=== PATIENT | female | born 1975 | race Caucasian/White ===

== ENCOUNTER 2019-12-18 16:40 | Outpatient (CLI) | payer OTHER, SELFPAY ==
--- NOTE | ~2019-12-18 | MM_ITS ---
EXAMINATION: MM screening ilya BI w misti HISTORY: Screening mammogram TECHNIQUE: Craniocaudal and mediolateral oblique 3-D tomosynthesis images were obtained and synthetic 2-D images were generated. CAD analysis was submitted and interpreted. COMPARISON: No prior mammogram is available for comparison at this institution. BREAST PARENCHYMAL COMPOSITION: The breasts are almost entirely fatty. FINDINGS: There is no evidence of suspicious mass, calcification, or architectural distortion to sugg est malignancy in either breast.. IMPRESSION: 1. No mammographic evidence of malignancy. 2. Recommend routine screening mammography in one year. BI-RADS Category 1: Negative Reviewed, dictated and finalized at location A.
== END 2019-12-18 16:41 | disposition home or self-care (01) ==
PROVIDERS: PCP Family Medicine; Visit Provider Obstetrics & Gynecology
DX: Z12.31 Encounter for screening mammogram for malignant neoplasm of breast (principal)
CPT/HCPCS: 77063; 77067

== ENCOUNTER 2020-02-06 11:47 | Outpatient (CLI) | payer OTHER, SELFPAY ==
[2020-02-06 12:16] LABS: Cholesterol 186 mg/dL (0-200); HDL Direct 36 mg/dL; Triglycerides 206 mg/dL (<150)
[2020-02-06 12:26] LABS: Hemoglobin A1C 5.6 % (<5.7)
[2020-02-06 12:27] LABS: LDL Cholesterol Direct 105 mg/dL
[2020-02-06 13:05] LABS: Vitamin D 25 Hydroxy 33.1 ng/mL
== END 2020-02-06 11:48 | disposition home or self-care (01) ==
LOC: ANHLAB 11:50
PROVIDERS: PCP Family Medicine; Visit Provider Obstetrics & Gynecology
DX: E78.9 Disorder of lipoprotein metabolism, unspecified (principal); E55.9 Vitamin D deficiency, unspecified; R73.09 Other abnormal glucose
CPT/HCPCS: 36415; 80061; 82306; 83036

== ENCOUNTER 2020-04-02 14:17 | Outpatient (CLI) | payer OTHER, SELFPAY ==
--- NOTE | ~2020-04-02 | XR_ITS ---
EXAMINATION: XR chest 2V EXAM DATE: 04/02/2020 15:55 INDICATION: Obesity. Preoperative. TECHNIQUE: Frontal and lateral projections of the chest obtained and reviewed. There is no prior wes dy for comparison. FINDINGS: The lungs are clear. There are no pleural effusions. The cardiomediastinal silhouette is within normal limits. There is no pneumothorax suspected. The bones and soft tissues are unremarkab le. IMPRESSION: Normal chest x-ray exam. Reviewed, dictated and finalized at location A. IMPRESSION: Normal chest x-ray exam.
[2020-04-02 15:15] LABS: Basophils Absolute Auto 0.1 K/mm3 (0.0-0.1); Basophils Percent Auto 0.5 % (0.2-1.2); Eosinophils Absolute Auto 0.4 K/mm3 (0-0.3); Eosinophils Percent Auto 4.2 % (0-4.4); Hematocrit 43.3 % (37.0-47.0); Hemoglobin 13.7 g/dL (12.0-15.0); Immature Granulocyte Absolute 0.02 K/mm3 (0.00-0.031); Immature Granulocyte Percent A 0.2 % (0-0.5); Lymphocytes Absolute Auto 2.64 K/mm3 (0.9-3.2); Lymphocytes Percent Auto 28.2 % (18.3-44.2); Mean Corpuscular HGB Conc 31.6 g/dl (32-36); Mean Corpuscular Hemoglobin 26.1 pg (26-34); Mean Corpuscular Volume 82.5 fl (80-100); Mean Platelet Volume 10.2 fl (7.4-10.4); Monocytes Percent Auto 10.1 % (2.6-8.5); Neutrophils Absolute Auto 5.3 K/mm3 (1.3-6.7); Neutrophils Percent Auto 56.8 % (45.5-73.1); Platelet Count Result 225 k/mm3 (150-375); Red Blood Count 5.25 M/mm3 (4.2-5.4); Red Cell Distribution Width 14.5 % (11.5-14.5); White Blood Count 9.4 K/mm3 (4.5-10.0)
[2020-04-02 15:23] LABS: Prothrombin Time 12.5 Seconds (11.1-14.7)
[2020-04-02 15:24] LABS: Partial Thromboplastin Time 23.4 SECONDS (22.3-36.8)
--- NOTE | 2020-04-02 15:24 | ECG_ITS ---
Measurements Intervals [place] Rate: 75 P: 49 HI: 293 QRS: -48 QRSD: 97 T: 58 QT: 397 QTc: 446 Interpretive Statements SINUS RHYTHM WITH FIRST DEGREE AV BLOCK LEFT ANTERIOR FASCICULAR BLOCK ABNORMAL ECG Electronically Signed On 04-02-2020 17:24:59 CDT by Endy Bustos D.O.
[2020-04-02 15:25] LABS: Hemoglobin A1C 5.8 % (<5.7)
[2020-04-02 15:27] LABS: Alanine Aminotransferase 15 U/L (4-35); Albumin Level 3.8 g/dL (3.5-5.1); Alkaline Phosphatase 62 U/L (38-126); Anion Gap 5 mmol/L (8-16); Aspartate Amino Transferase 18 U/L (14-36); Bilirubin,Total 0.5 mg/dL (0.2-1.3); Blood Urea Nitrogen 21 mg/dL (7-17); Calcium 8.6 mg/dL (8.4-10.2); Carbon Dioxide 33 mmol/L (22-30); Chloride 103 mmol/L (98-107); Estimated Glomerular Filt Rate > 60; Glucose 108 mg/dL (65-105); Magnesium 2.3 mg/dL (1.6-2.3); Potassium 4.5 mmol/L (3.4-5.0); Sodium 141 mmol/L (137-145)
[2020-04-02 16:05] LABS: Parathyroid Intact 78.5 pg/mL (7.5-53.5)
[2020-04-02 16:34] LABS: Folic Acid > 20.0 ng/mL (2.76->20)
[2020-04-02 17:01] LABS: Iron 50 ug/dL (37-170)
[2020-04-02 17:12] LABS: Percent Iron Saturation 14 % (20-50)
[2020-04-02 17:24] LABS: Vitamin D 25 Hydroxy 31.6 ng/mL
[2020-04-07 11:07] LABS: Vitamin B1 7 nmol/L (8-30)
== END 2020-04-02 14:18 | disposition home or self-care (01) ==
PROVIDERS: PCP Family Medicine
DX: Z01.818 Encounter for other preprocedural examination (principal); E66.01 Morbid (severe) obesity due to excess calories; R94.31 Abnormal electrocardiogram [ECG] [EKG]
CPT/HCPCS: 36415; 71046; 80053; 82306; 82607; 82728; 82746; 83036; 83540; 83550; 83735; 83970; 84425; 84443; 85025; 85610; 85730; 93005

== ENCOUNTER 2020-05-06 12:32 | Outpatient (CLI) | payer OTHER, SELFPAY ==
[2020-05-06 13:38] LABS: LDL Cholesterol Direct 73 mg/dL
[2020-05-06 13:39] LABS: Calcium 8.6 mg/dL (8.4-10.2); Cholesterol 136 mg/dL (0-200); Parathyroid Intact 88.1 pg/mL (7.5-53.5); Triglycerides 183 mg/dL (<150)
[2020-05-06 13:59] LABS: HDL Direct 27 mg/dL
== END 2020-05-06 12:33 | disposition home or self-care (01) ==
PROVIDERS: PCP Family Medicine
DX: E66.01 Morbid (severe) obesity due to excess calories (principal); Z68.43 Body mass index [BMI] 50.0-59.9, adult; E21.3 Hyperparathyroidism, unspecified
CPT/HCPCS: 36415; 80061; 82310; 83970

== ENCOUNTER 2020-05-31 11:20 | Outpatient (CLI) | payer OTHER, SELFPAY ==
[2020-05-31 12:59] LABS: Calcium 8.9 mg/dL (8.4-10.2)
[2020-05-31 13:14] LABS: Parathyroid Intact 58.5 pg/mL (7.5-53.5)
[2020-05-31 13:36] LABS: Vitamin D 25 Hydroxy 52.9 ng/mL
== END 2020-05-31 11:21 | disposition home or self-care (01) ==
LOC: ANHLAB 11:27
PROVIDERS: PCP Family Medicine
DX: E55.9 Vitamin D deficiency, unspecified (principal); R79.89 Other specified abnormal findings of blood chemistry
CPT/HCPCS: 36415; 82306; 82310; 83970

== ENCOUNTER 2020-07-17 10:10 | Emergency (ER) | payer OTHER, SELFPAY ==
--- NOTE | 2020-07-17 10:14 | ED.GENADULT ---
HPI - General Adult General Chief complaint: Upper Respiratory Infection Stated complaint: upper respiratory infection Time Seen by Provider: 07/17/20 10:12 Source: patient Mode of arrival: ambulatory Limitations: no limitations History of Present Illness HPI narrative: 45 y/o female. PMH includes: GERD, Hypothyroid, HLD, Elevated BMI. Presents to [facility] clinic today with acute complaints of upper respiratory manifestations. Client reports nasal congestion, semi productive cough, and sore throat, worsening > past 48 hours. No fever, chills. No MURILLO, otalgia. No chest pain, dyspnea, wheezing, edema. She is a non-smoker. She reports no known ill contacts. Home remedies have been of subtherapeutic relief per patient report. She is without additional acute complaints of illness upon PE. Related Data Home Medications Medication Instructions Recorded Confirmed levothyroxine 75 mcg DAILY 07/17/20 07/17/20 pantoprazole 40 mg PO DAILY 07/17/20 07/17/20 sucralfate 1 g TID 07/17/20 07/17/20 Allergies Allergy/AdvReac Type Severity Reaction Status Date / Time amoxicillin [From Augmentin] Allergy Hives Verified 07/17/20 10:59 clavulanic acid Allergy Hives Verified 07/17/20 10:59 [From Augmentin] Review of Systems Review of Systems: Narrative: CONSTITUTIONAL: Denies fever, chills, sweats. EYES: Denies visual changes, redness, discharge. ENT: Positive congestion, sore throat. Denies otalgia. CARDIOVASCULAR: Denies chest pain, palpitations, edema. RESPIRATORY: Positive cough. Denies dyspnea, wheezing. GASTROINTESTINAL: Denies abdominal pain, nausea, vomiting, diarrhea. GENITOURINARY: Denies dysuria, hematuria, abnormal discharge SKIN: Denies rash or itching. MUSCULOSKELETAL: Denies acute back pain, joint pain, or myalgia. NEUROLOGIC: Denies numbness, or focal weakness. PSYCHIATRIC: Denies anxiety or depression. All systems reviewed & are unremarkable except as noted in HPI and below (HPI ) PMFSH Social History Social History Gender identity (if verbalized by the patient): Female Exam Narrative: Exam Narrative: GENERAL: This is a well-nourished, well-developed patient, in no apparent distress. HEAD: normocephalic, atraumatic. EYES: PERRL. Sclera clear/white. Vision is grossly intact. EARS: External ears normal, auditory canals clear and without drainage, TMs normal without perforation. Hearing grossly intact. NOSE: External nose normal. Positive PND & rhinorrhea. Bilateral nares with erythema. No obstruction. THROAT: Mucous membranes moist. Posterior pharynx is erythematous and without noted exudate. NECK: Neck supple, non-tender without lymphadenopathy, masses or thyromegaly. CARDIOVASCULAR: Regular rate and rhythm without murmurs, gallops, or rubs. RESPIRATORY: Breath sounds equal bilaterally. There is a mild degree of upper airway rhonchi, cleared with cough. No wheezes or rales. No stridor. GASTROINTESTINAL: Abdomen soft, non-tender, nondistended. Bowel sounds are active. No hepato-splenomegaly, or palpable masses. No guarding. SKIN: warm, intact with no suspicious lesions or rash, good texture and turgor. NEURO: awake, alert, and oriented to person, place and time. There were no obvious focal neurologic abnormalities. Steady gait EXTREMITIES: Normal range of motion. No edema. No calf tenderness. Negative Homans sign bilaterally. BACK: Nontender without deformity or crepitance. No flank tenderness. Course Course Emergency Course: 45 y/o female. PMH includes: GERD, Hypothyroid, HLD, Elevated BMI. Presents to [facility] care clinic today with acute complaints of upper respiratory manifestations. Client reports nasal congestion, semi productive cough, and sore throat, worsening > past 48 hours. No fever, chills. No MURILLO, otalgia. No chest pain, dyspnea, wheezing, edema. She is a non-smoker. She reports no known ill contacts. Home remedies have been of sub
[2020-07-17 10:30] VITALS: BP 104/42; PULSE 67; RESP 20; TEMP 37.3; O2SAT 97
== END 2020-07-17 11:05 | disposition home or self-care (01) ==
PROVIDERS: Emergency Provider Nurse Practitioner Adult Health; PCP Family Medicine
DX: J02.0 Streptococcal pharyngitis (principal); Z20.822 Contact with and (suspected) exposure to COVID-19; K21.9 Gastro-esophageal reflux disease without esophagitis; E03.9 Hypothyroidism, unspecified; E78.5 Hyperlipidemia, unspecified
CPT/HCPCS: 87426; 87804; 87880; 99213; C9803; G0463

== ENCOUNTER 2020-07-24 12:15 | Emergency (ER) | payer OTHER, SELFPAY ==
--- NOTE | 2020-07-24 12:21 | ED.GENADULT ---
HPI - General Adult General Chief complaint: Upper Respiratory Infection Stated complaint: sore throat Time Seen by Provider: 07/24/20 12:21 Source: patient Mode of arrival: ambulatory Limitations: no limitations History of Present Illness HPI narrative: 45-year-old female patient presents to the [facility] with complaints of a sore throat. Patient states that she was seen here last week and on Sunday and states that she was tested for strep, flu and Covid. Patient states that she came up positive for strep but negative for Covid and flu. Patient states that she was given some antibiotics and sent home. Patient states that she finished antibiotics but continued to have a sore throat and which she saw her doctor this past Sunday was put on clindamycin. Patient states her symptoms are starting to get a little bit better but continues to have the sore throat and states that she is wanting to get tested for Covid again. Patient denies any fevers, body aches or chills. Denies any runny nose, stuffy nose, ear pain. Related Data Home Medications Medication Instructions Recorded Confirmed levothyroxine 75 mcg DAILY 07/17/20 07/17/20 Vitamin D3 07/24/20 clindamycin HCl 07/24/20 anicocsshehb-lzz-eccx-FA-vit K tablet PO 07/24/20 [Adults Multivitamin] thiamine HCl (vitamin B1) 07/24/20 Allergies Allergy/AdvReac Type Severity Reaction Status Date / Time amoxicillin [From Augmentin] Allergy Hives Verified 07/17/20 10:59 clavulanic acid Allergy Hives Verified 07/17/20 10:59 [From Augmentin] hydromorphone [From Dilaudid] Allergy Unknown Verified 07/24/20 12:50 Review of Systems Review of Systems: Narrative: CONSTITUTIONAL: Denies fever, chills, or sweats. EYES: Denies visual changes, redness, or discharge. ENT: Denies rhinorrhea, congestion, positive sore throat, denies otalgia. CARDIOVASCULAR: Denies chest pain, palpitations, or edema. RESPIRATORY: Denies cough or dyspnea. GASTROINTESTINAL: Denies abdominal pain, nausea, vomiting, or diarrhea. GENITOURINARY: Denies dysuria or hematuria. SKIN: Denies rash or itching. MUSCULOSKELETAL: Denies back pain, joint pain, or myalgia. NEUROLOGIC: Denies headache, numbness, or weakness. PSYCHIATRIC: Denies anxiety or depression. [facility] Social History Social History Gender identity (if verbalized by the patient): Female Comments At the time of my signature I agree with nursing past medical history, surgical, social, and family history. There is no relevant family history pertinent to the presenting complaint. Exam Narrative: Exam Narrative: GENERAL: Well-appearing, well-nourished, and in no acute distress. HEAD: Normocephalic, atraumatic. EYES: PERRLA and EOMI. ENT: Nares clear, no rhinorrhea or epistaxis. Mucous membranes moist. Posterior pharynx with no erythema, tonsillar edema, exudates or lesions present. Bilateral TMs are clear no erythema or foreign bodies in the canal. NECK: Supple. No lymphadenopathy CHEST: Clear to auscultation. No respiratory distress. HEART: Regular rate and rhythm. No murmur heard. Normal peripheral pulses. ABDOMEN: Soft, nontender, nondistended, normal active bowel sounds. EXTREMITIES: Normal range of motion. No edema. SKIN: Warm, dry, no rash. NEURO: No focal deficits. Alert and oriented x3. Course Reevaluation(s) Reevaluation #1: Notify patient that her strep test today is negative. Discussed with her I want her to continue taking the clindamycin that was given to her by her doctor and finish the antibiotic and if she develops a sore throat shortly after she continues to have a sore throat when she is then she needs to see her primary doctor again. Discussed with her that we did do a PCR test today and send that off to the lab we should have results in the next 24 to 48 hours. Patient verbalized understanding denies any other questions or concerns at this time. Date: 07/24/20 T
[2020-07-24 12:25] VITALS: BP 129/82; PULSE 64; RESP 18; TEMP 36.7; O2SAT 100
[2020-07-26 23:00] LABS: SARS-CoV-2 RNA PCR Negative
== END 2020-07-24 13:31 | disposition home or self-care (01) ==
PROVIDERS: Emergency Provider Nurse Practitioner Family
DX: Z20.822 Contact with and (suspected) exposure to COVID-19 (principal); J02.9 Acute pharyngitis, unspecified; K21.9 Gastro-esophageal reflux disease without esophagitis; M19.90 Unspecified osteoarthritis, unspecified site; E03.9 Hypothyroidism, unspecified
CPT/HCPCS: 87081; 87880; 99213; C9803; G0463; U0003; U0005

== ENCOUNTER 2020-08-19 13:51 | Outpatient (CLI) | payer OTHER, SELFPAY ==
[2020-08-22 04:52] LABS: Vitamin B1 29 nmol/L (8-30)
== END 2020-08-19 13:52 | disposition home or self-care (01) ==
PROVIDERS: PCP Family Medicine
DX: E51.9 Thiamine deficiency, unspecified (principal)
CPT/HCPCS: 36415; 84425

== ENCOUNTER 2020-12-03 11:41 | Outpatient (CLI) | payer OTHER, SELFPAY ==
[2020-12-03 12:38] LABS: Basophils Percent Auto 0.5 % (0.2-1.2); Eosinophils Absolute Auto 0.2 K/mm3 (0-0.3); Eosinophils Percent Auto 3.1 % (0-4.4); Hematocrit 40.4 % (37.0-47.0); Hemoglobin 12.9 g/dL (12.0-15.0); Lymphocytes Absolute Auto 1.99 K/mm3 (0.9-3.2); Mean Corpuscular HGB Conc 31.9 g/dl (32-36); Mean Corpuscular Hemoglobin 27.3 pg (26-34); Mean Corpuscular Volume 85.4 fl (80-100); Mean Platelet Volume 11.2 fl (7.4-10.4); Monocytes Absolute Auto 0.7 K/mm3 (0.1-0.6); Monocytes Percent Auto 11.9 % (2.6-8.5); Neutrophils Absolute Auto 2.7 K/mm3 (1.3-6.7); Neutrophils Percent Auto 48.5 % (45.5-73.1); Platelet Count Result 168 k/mm3 (150-375); Red Blood Count 4.73 M/mm3 (4.2-5.4); Red Cell Distribution Width 14.9 % (11.5-14.5); White Blood Count 5.5 K/mm3 (4.5-10.0)
[2020-12-03 12:44] LABS: Alanine Aminotransferase 11 U/L (4-35); Albumin Level 3.8 g/dL (3.5-5.1); Alkaline Phosphatase 54 U/L (38-126); Anion Gap 6 mmol/L (8-16); Aspartate Amino Transferase 18 U/L (14-36); Bilirubin,Total 0.4 mg/dL (0.2-1.3); Blood Urea Nitrogen 14 mg/dL (7-17); Calcium 9.1 mg/dL (8.4-10.2); Carbon Dioxide 29 mmol/L (22-30); Chloride 109 mmol/L (98-107); Cholesterol 147 mg/dL (0-200); Estimated Glomerular Filt Rate > 60; Glucose 92 mg/dL (65-105); HDL Direct 32 mg/dL; Magnesium 2.2 mg/dL (1.6-2.3); Phosphorus 3.8 mg/dL (2.5-4.5); Potassium 4.5 mmol/L (3.4-5.0); Sodium 144 mmol/L (137-145); Triglycerides 115 mg/dL (<150)
[2020-12-03 12:54] LABS: LDL Cholesterol Direct 70 mg/dL
[2020-12-03 13:49] LABS: Folic Acid 18.6 ng/mL (2.76->20)
[2020-12-03 14:08] LABS: Parathyroid Intact 67.8 pg/mL (7.5-53.5)
[2020-12-03 14:25] LABS: Vitamin D 25 Hydroxy 60.6 ng/mL
[2020-12-03 17:35] LABS: Iron 39 ug/dL (37-170); Percent Iron Saturation 14 % (20-50)
== END 2020-12-03 11:42 | disposition home or self-care (01) ==
PROVIDERS: PCP Family Medicine
DX: E66.01 Morbid (severe) obesity due to excess calories (principal); Z98.84 Bariatric surgery status; K90.9 Intestinal malabsorption, unspecified
CPT/HCPCS: 36415; 80053; 80061; 82306; 82607; 82728; 82746; 83540; 83550; 83735; 83970; 84100; 84425; 84443; 85025

== ENCOUNTER 2021-02-22 17:16 | Outpatient (CLI) | payer OTHER, SELFPAY ==
--- NOTE | ~2021-02-22 | MM_ITS ---
EXAMINATION: MM screening ilya BI w misti HISTORY: Screening TECHNIQUE: Craniocaudal and mediolateral oblique 3-D tomosynthesis images were obtained and synthetic 2-D images were generated. CAD analysis was submitted and interpreted. COMPARISON: 12/18/2019 BREAST PARENCHYMAL COMPOSITION: There are scattered areas of fibroglandular density. FINDINGS: There is no evidence of suspicious mass, calcification, or architectural distortion to sugg est malignancy in either breast. There has been no suspicious interval change. IMPRESSION: 1. No mammographic evidence of malignancy. 2. Recommend routine screening mammography in one year. BI-RADS Category 1: Negative Reviewed, dictated and finalized at location A.
== END 2021-02-22 17:17 | disposition home or self-care (01) ==
LOC: ANHIMG 17:18
PROVIDERS: PCP Family Medicine; Visit Provider Obstetrics & Gynecology
DX: Z12.31 Encounter for screening mammogram for malignant neoplasm of breast (principal)
CPT/HCPCS: 77063; 77067

== ENCOUNTER 2021-03-14 14:47 | Outpatient (CLI) | payer OTHER, SELFPAY ==
[2021-03-14 15:27] LABS: Basophils Percent Auto 0.7 % (0.2-1.2); Eosinophils Absolute Auto 0.1 K/mm3 (0-0.3); Eosinophils Percent Auto 1.4 % (0-4.4); Hematocrit 39.6 % (37.0-47.0); Hemoglobin 12.6 g/dL (12.0-15.0); Immature Granulocyte Absolute 0.01 K/mm3 (0.00-0.031); Immature Granulocyte Percent A 0.2 % (0-0.5); Lymphocytes Absolute Auto 1.63 K/mm3 (0.9-3.2); Lymphocytes Percent Auto 27.8 % (18.3-44.2); Mean Corpuscular HGB Conc 31.8 g/dl (32-36); Mean Corpuscular Hemoglobin 27.5 pg (26-34); Mean Corpuscular Volume 86.3 fl (80-100); Mean Platelet Volume 11.2 fl (7.4-10.4); Monocytes Absolute Auto 0.6 K/mm3 (0.1-0.6); Monocytes Percent Auto 9.4 % (2.6-8.5); Neutrophils Absolute Auto 3.6 K/mm3 (1.3-6.7); Neutrophils Percent Auto 60.5 % (45.5-73.1); Platelet Count Result 165 k/mm3 (150-375); Red Blood Count 4.59 M/mm3 (4.2-5.4); Red Cell Distribution Width 13.8 % (11.5-14.5); White Blood Count 5.9 K/mm3 (4.5-10.0)
[2021-03-14 15:38] LABS: Alanine Aminotransferase 16 U/L (4-35); Albumin Level 3.8 g/dL (3.5-5.1); Alkaline Phosphatase 57 U/L (38-126); Anion Gap 8 mmol/L (8-16); Aspartate Amino Transferase 20 U/L (14-36); Bilirubin,Total 0.6 mg/dL (0.2-1.3); Blood Urea Nitrogen 15 mg/dL (7-17); Calcium 8.7 mg/dL (8.4-10.2); Carbon Dioxide 28 mmol/L (22-30); Chloride 107 mmol/L (98-107); Cholesterol 120 mg/dL (0-200); Estimated Glomerular Filt Rate > 60; Glucose 93 mg/dL (65-110); HDL Direct 33 mg/dL; Magnesium 2.2 mg/dL (1.6-2.3); Phosphorus 3.9 mg/dL (2.5-4.5); Potassium 4.2 mmol/L (3.4-5.0); Sodium 143 mmol/L (137-145); Triglycerides 83 mg/dL (<150)
[2021-03-14 15:49] LABS: LDL Cholesterol Direct 57 mg/dL
[2021-03-14 16:09] LABS: Thyroid Stimulating Hormone 0.327 uIU/mL (0.465-4.680)
[2021-03-14 16:58] LABS: Folic Acid > 20.0 ng/mL (2.76->20)
[2021-03-14 17:13] LABS: Hemoglobin A1C 5.1 % (<5.7)
[2021-03-14 19:30] LABS: Parathyroid Intact 73.2 pg/mL (7.5-53.5)
[2021-03-14 20:19] LABS: Iron 36 ug/dL (37-170)
[2021-03-14 20:27] LABS: Percent Iron Saturation 14 % (20-50)
[2021-03-14 20:31] LABS: Vitamin D 25 Hydroxy 66.6 ng/mL
== END 2021-03-14 14:48 | disposition home or self-care (01) ==
PROVIDERS: PCP Family Medicine
DX: E03.9 Hypothyroidism, unspecified (principal); R73.03 Prediabetes
CPT/HCPCS: 36415; 80053; 80061; 82306; 82607; 82728; 82746; 83036; 83540; 83550; 83735; 83970; 84100; 84425; 84443; 85025

== ENCOUNTER 2021-03-20 20:58 | Emergency (ER) | payer OTHER, SELFPAY ==
--- NOTE | ~2021-03-20 | XR_ITS ---
EXAMINATION: XR toe 5th RT min 2V DATE: 03/20/2021 21:58 INDICATION: Pain at the fifth distal phalanx after stubbing the toe. TECHNIQUE: Dorsal plantar, lateral and oblique views of the right fifth were obtained. COMPARISON: None FINDINGS: Normal alignment. Subtle linear lucency consistent with nondisplaced extra-articular fracture at the proximal metaphyseal region of the right fifth proximal phalanx. No other fractures identified. 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 IMPRESSION: Nondisplaced extra articular fracture at the base of the right fifth proximal phalanx. Reviewed, dictated and finalized at location A. IMPRESSION: Nondisplaced extra articular fracture at the base of the right fifth proximal p halanx.
[2021-03-20 21:42] VITALS: BP 115/73; PULSE 75; RESP 18; TEMP 36.6; O2SAT 100
--- NOTE | 2021-03-21 03:01 | ED.LOWEXIN ---
HPI - Extremity Injury (Lower) General Chief Complaint: Extremity Injury, Lower Stated Complaint: i think i broke my toe Time Seen by Provider: 03/21/21 01:55 History of Present Illness HPI Narrative: Patient is a 45-year-old female who presents ER with right fifth digit pain. It is bruised. She was walking and kicked her 's briefcase. No numbness or tingling. Worse with ambulating. Related Data Home Medications Medication Instructions Recorded Confirmed levothyroxine 75 mcg DAILY 07/17/20 07/17/20 Vitamin D3 07/24/20 clindamycin HCl 07/24/20 grvtzbadhymp-oyc-fybz-FA-vit K tablet PO 07/24/20 [Adults Multivitamin] thiamine HCl (vitamin B1) 07/24/20 Allergies Allergy/AdvReac Type Severity Reaction Status Date / Time amoxicillin [From Augmentin] Allergy Hives Verified 07/17/20 10:59 clavulanic acid Allergy Hives Verified 07/17/20 10:59 [From Augmentin] hydromorphone [From Dilaudid] Allergy Unknown Verified 07/24/20 12:50 Review of Systems Musculoskeletal: Musculoskeletal: Reports arthralgias and Reports joint swelling Integumentary/Breasts: Comments: Bruising to the right fifth digit foot. Neurologic: Denies focal weakness and Denies numbness PMFSH Past Medical History Medical History (Updated 03/21/21 @ 03:05 by Moreno Sylvester MD) Hypothyroid Surgical History Surgical History (Updated 03/21/21 @ 03:03 by Moreno Sylvester MD) No pertinent past surgical history Social History Social History Gender identity (if verbalized by the patient): Female Exam Narrative: GENERAL: Well-appearing, well-nourished, and in no acute distress. HEAD: Normocephalic, atraumatic. EXTREMITIES: Normal range of motion. Bruising and tenderness to the right fifth digit of the foot at the proximal phalanx. SKIN: Warm, dry, no rash. NEURO: No focal deficits. Alert and oriented x3. PSYCH: Normal mood and affect. Course Course Emergency Course: Postop shoe and alexandra taping performed by nursing staff. Discharge home. Vital Signs Vital signs: Vital Signs Temperature 97.8 F 03/20/21 21:42 Pulse Rate 75 03/20/21 21:42 Respiratory Rate 18 03/20/21 21:42 Blood Pressure 115/73 03/20/21 21:42 Pulse Oximetry 100 03/20/21 21:42 Temperature 97.8 F 03/20/21 21:42 Pulse Rate 75 03/20/21 21:42 Respiratory Rate 18 03/20/21 21:42 Blood Pressure 115/73 03/20/21 21:42 Pulse Oximetry 100 03/20/21 21:42 MDM - Extremity Injury (Lower) Imaging Data My impression: X-ray right foot: Nondisplaced proximal phalanx fracture that is extra-articular. Discharge Plan Discharge Clinical Impression: Closed fracture of toe Patient Disposition: Home, Self-Care Condition: Stable Instructions: Toe Fracture (ED) Additional Instructions: Return the ER if you have new injury, you have fever over 100.4 ?F, you have additional concerns. Prescriptions: No Action levothyroxine 75 mcg tablet 75 mcg DAILY RF: 0 clindamycin HCl 300 mg capsule RF: 0 Adults Multivitamin 18 mg iron-400 mcg-25 mcg Tablet PO RF: 0 Vitamin D3 RF: 0 thiamine HCl (vitamin B1) RF: 0 Follow-up/Referrals: Princess,Lisa Yoder MD [Primary Care Provider] - 1 Week Stand Alone Forms: Work/School Release IP
== END 2021-03-21 03:48 | disposition home or self-care (01) ==
PROVIDERS: Emergency Provider Emergency Medicine; PCP Family Medicine
DX: S92.514A Nondisplaced fracture of proximal phalanx of right lesser toe(s), initial encounter for closed fracture (principal); E03.9 Hypothyroidism, unspecified; W22.09XA Striking against other stationary object, initial encounter
CPT/HCPCS: 73660; 99284

== ENCOUNTER 2021-09-09 10:09 | Outpatient (CLI) | payer OTHER, SELFPAY ==
[2021-09-09 10:34] LABS: Basophils Percent Auto 0.6 % (0.2-1.2); Eosinophils Absolute Auto 0.1 K/mm3 (0-0.3); Eosinophils Percent Auto 1.5 % (0-4.4); Hematocrit 40.1 % (37.0-47.0); Hemoglobin 13.2 g/dL (12.0-15.0); Immature Granulocyte Absolute 0.01 K/mm3 (0.00-0.031); Immature Granulocyte Percent A 0.2 % (0-0.5); Lymphocytes Absolute Auto 1.66 K/mm3 (0.9-3.2); Lymphocytes Percent Auto 30.8 % (18.3-44.2); Mean Corpuscular HGB Conc 32.9 g/dl (32-36); Mean Corpuscular Hemoglobin 28.7 pg (26-34); Mean Corpuscular Volume 87.2 fl (80-100); Mean Platelet Volume 10.9 fl (7.4-10.4); Monocytes Absolute Auto 0.6 K/mm3 (0.1-0.6); Monocytes Percent Auto 10.8 % (2.6-8.5); Neutrophils Percent Auto 56.1 % (45.5-73.1); Platelet Count Result 150 k/mm3 (150-375); Red Cell Distribution Width 13.6 % (11.5-14.5); White Blood Count 5.4 K/mm3 (4.5-10.0)
[2021-09-09 10:44] LABS: Alanine Aminotransferase 21 U/L (4-35); Albumin Level 3.8 g/dL (3.5-5.1); Alkaline Phosphatase 45 U/L (38-126); Anion Gap 3 mmol/L (8-16); Aspartate Amino Transferase 23 U/L (14-36); Bilirubin,Total 0.8 mg/dL (0.2-1.3); Blood Urea Nitrogen 18 mg/dL (7-17); Calcium 8.5 mg/dL (8.4-10.2); Carbon Dioxide 29 mmol/L (22-30); Chloride 108 mmol/L (98-107); Cholesterol 110 mg/dL (0-200); Estimated Glomerular Filt Rate > 60; Glucose 92 mg/dL (65-110); HDL Direct 36 mg/dL; Magnesium 2.2 mg/dL (1.6-2.3); Phosphorus 3.6 mg/dL (2.5-4.5); Potassium 4.4 mmol/L (3.4-5.0); Sodium 140 mmol/L (137-145); Triglycerides 45 mg/dL (<150)
[2021-09-09 10:55] LABS: LDL Cholesterol Direct 60 mg/dL
[2021-09-09 10:56] LABS: Iron 73 ug/dL (37-170)
[2021-09-09 11:06] LABS: Percent Iron Saturation 26 % (20-50)
[2021-09-09 11:12] LABS: Vitamin D 25 Hydroxy 70.1 ng/mL
[2021-09-09 11:18] LABS: Parathyroid Intact 58.3 pg/mL (7.5-53.5)
[2021-09-09 11:51] LABS: Folic Acid > 20.0 ng/mL (2.76->20)
[2021-09-15 17:38] LABS: Vitamin B1 19 nmol/L (8-30)
== END 2021-09-09 10:10 | disposition home or self-care (01) ==
LOC: ANHLAB 10:14
PROVIDERS: PCP Family Medicine
DX: E03.9 Hypothyroidism, unspecified (principal)
CPT/HCPCS: 36415; 80053; 80061; 82306; 82607; 82728; 82746; 83540; 83550; 83735; 83970; 84100; 84425; 84443; 85025

== ENCOUNTER 2021-09-21 14:41 | Emergency (ER) | payer OTHER, SELFPAY ==
[2021-09-21 14:50] VITALS: BP 116/59; PULSE 71; RESP 18; TEMP 36.6; O2SAT 100
--- NOTE | 2021-09-21 14:57 | ED.GENADULT ---
HPI - General Adult General Chief complaint: Ear Stated complaint: Bilateral Ear Irritation Source: patient Mode of arrival: ambulatory Limitations: no limitations History of Present Illness HPI narrative: Patient presents for evaluation of respiratory symptoms for the past two days. Symptoms include sinus congestion, clear rhinorrhea, mild sore throat, bilateral otalgia and occasional nonproductive cough. No fever, chills, nausea, vomiting, diarrhea, SOB or chest pain. She cannot identify any recent sick contacts. She is a former smoker. She has not received vaccination for COVID. She has not taken any medication for her symptoms. She called her PCP and they recommended a virtual visit. She declined as she did not feel she could be properly assessed. Related Data Home Medications Medication Instructions Recorded Confirmed levothyroxine 75 mcg PO DAILY 07/17/20 09/21/21 Vitamin D3 1,000 mcg PO DAILY 07/24/20 09/21/21 ahdffhycmhpc-zca-wful-FA-vit K 1 tablet PO DAILY 07/24/20 09/21/21 [Adults Multivitamin] thiamine HCl (vitamin B1) 1 tab-cap PO DAILY 07/24/20 09/21/21 ferrous sulfate [FeroSul] 650 mg PO TID 09/21/21 09/21/21 Allergies Allergy/AdvReac Type Severity Reaction Status Date / Time hydromorphone [From Dilaudid] Allergy Severe Difficulty Verified 09/21/21 14:56 Breathing amoxicillin [From Augmentin] Allergy Mild Hives Verified 09/21/21 14:46 clavulanic acid Allergy Mild Hives Verified 09/21/21 14:46 [From Augmentin] Review of Systems Review of Systems: CONSTITUTIONAL: Denies fever, chills, or sweats. EYES: Denies visual changes, redness, or discharge. ENT: Reports sinus congestions, clear rhinorrhea, mild sore throat and bilateral otalgia. CARDIOVASCULAR: Denies chest pain, palpitations, or edema. RESPIRATORY: Reports occasional cough. Denies dyspnea. GASTROINTESTINAL: Denies abdominal pain, nausea, vomiting, or diarrhea. GENITOURINARY: Denies dysuria or hematuria. SKIN: Denies rash or itching. MUSCULOSKELETAL: Denies back pain, joint pain, or myalgia. NEUROLOGIC: Denies headache, numbness, dizziness, or weakness. PSYCHIATRIC: Denies anxiety or depression. [facility] Past Medical History Medical History Hypothyroid Surgical History Surgical History No pertinent past surgical history Family History Family History Mother Diabetes mellitus Hypertension Social History Social History Smoking status: Former smoker Substance use: never Living arrangements: with family Gender identity (if verbalized by the patient): Female Sexual Orientation (if Verbalized by the Patient): Straight or Heterosexual Spiritual care concerns: No Exam Narrative: GENERAL: Well-appearing, well-nourished, and in no acute distress. HEAD: Normocephalic, atraumatic. EYES: PERRLA and EOMI. ENT: Nares clear, no rhinorrhea or epistaxis. Mucous membranes moist. Oropharynx without tonsillar hypertrophy exudate or other lesions. Bilateral TMs pearly pacheco nonbulging NECK: Supple. No adenopathy or masses. No carotid bruits or JVD CHEST: Clear to auscultation. No respiratory distress. No wheezes rales or rhonchi HEART: Regular rate and rhythm. No murmur heard. Normal peripheral pulses. ABDOMEN: Soft, nontender, nondistended, normal active bowel sounds. EXTREMITIES: Normal range of motion. No edema. SKIN: Warm, dry, no rash. NEURO: No focal deficits. Alert and oriented x3. PSYCH: Normal mood and affect. Course Course Emergency Course: This is a 46-year-old female who presented with complaints of upper respiratory symptoms. Strep was negative. Exam is consistent with acute viral syndrome. Advised Sudafed and Flonase. Increase hydration and other heat-hpu-aklwznd agents
== END 2021-09-21 15:14 | disposition home or self-care (01) ==
PROVIDERS: Emergency Provider Nurse Practitioner; PCP Family Medicine
DX: J06.9 Acute upper respiratory infection, unspecified (principal); Z87.891 Personal history of nicotine dependence; E03.9 Hypothyroidism, unspecified
CPT/HCPCS: 87081; 87880; 99213; G0463

== ENCOUNTER 2021-11-23 10:13 | Outpatient (CLI) | payer OTHER, SELFPAY ==
[2021-11-23 12:45] LABS: Alanine Aminotransferase 21 U/L (6-35); Albumin Level 3.8 g/dL (3.5-5.1); Alkaline Phosphatase 39 U/L (38-126); Anion Gap 2 mmol/L (8-16); Aspartate Amino Transferase 23 U/L (14-36); Bilirubin,Total 0.7 mg/dL (0.2-1.3); Blood Urea Nitrogen 20 mg/dL (7-17); Calcium 8.6 mg/dL (8.4-10.2); Carbon Dioxide 31 mmol/L (22-30); Chloride 106 mmol/L (98-107); Estimated Glomerular Filt Rate > 60; Glucose 85 mg/dL (65-110); Potassium 4.3 mmol/L (3.4-5.0); Sodium 139 mmol/L (137-145)
[2021-11-23 12:48] LABS: Parathyroid Intact 47.6 pg/mL (7.5-53.5)
[2021-11-23 12:57] LABS: Total Protein Urine Random < 5 mg/dL
[2021-11-23 12:58] LABS: Ur Ttl Prot Creatinine Ratio < 0.04 mg/mg (0-0.20)
[2021-11-23 13:51] LABS: Folic Acid > 20.0 ng/mL (2.76->20)
[2021-11-24 00:11] LABS: Vitamin D 25 Hydroxy 75.2 ng/mL
[2021-11-25 04:50] LABS: Triiodothyronine T3 Free 2.6 pg/mL (2.3-4.2)
[2021-11-26 06:28] LABS: Ionized Calcium 5.2 mg/dL (4.8-5.6)
[2021-12-01 20:17] LABS: Pancreatic Elastase, Stool 99 mcg/g
[2021-12-30 08:43] LABS: Gliadin AB, IgG <1.0 U/mL (<15.0); TTG IGA AB <1.0 U/mL (<15.0)
== END 2021-11-23 10:14 | disposition home or self-care (01) ==
LOC: ANHLAB 10:18
PROVIDERS: PCP Family Medicine; Visit Provider Internal Medicine Endocrinology, Diabetes & Metabolism
DX: E03.9 Hypothyroidism, unspecified (principal); E21.1 Secondary hyperparathyroidism, not elsewhere classified; E88.09 Other disorders of plasma-protein metabolism, not elsewhere classified
CPT/HCPCS: 36415; 80053; 82306; 82330; 82570; 82607; 82653; 82705; 82746; 83516; 83970; 84100; 84156; 84443; 84481; 86255

== ENCOUNTER 2021-11-25 12:28 | Outpatient (CLI) | payer OTHER, SELFPAY ==
[2021-11-29 21:30] LABS: Fecal Fat, Ql Normal (Normal)
[2021-12-01 20:17] LABS: Pancreatic Elastase, Stool 174 mcg/g
== END 2021-11-25 12:29 | disposition home or self-care (01) ==
LOC: ANHLAB 12:31
PROVIDERS: PCP Family Medicine; Visit Provider Internal Medicine Endocrinology, Diabetes & Metabolism
DX: E03.9 Hypothyroidism, unspecified (principal); E21.1 Secondary hyperparathyroidism, not elsewhere classified; E88.09 Other disorders of plasma-protein metabolism, not elsewhere classified
CPT/HCPCS: 82653; 82705

== ENCOUNTER 2021-12-30 08:45 | Outpatient (CLI) | payer OTHER, SELFPAY ==
[2021-12-30 10:17] LABS: Alanine Aminotransferase 27 U/L (6-35); Albumin Level 3.7 g/dL (3.5-5.1); Alkaline Phosphatase 43 U/L (38-126); Anion Gap 1 mmol/L (8-16); Aspartate Amino Transferase 26 U/L (14-36); Bilirubin,Total 0.5 mg/dL (0.2-1.3); Blood Urea Nitrogen 21 mg/dL (7-17); Calcium 8.3 mg/dL (8.4-10.2); Carbon Dioxide 33 mmol/L (22-30); Chloride 105 mmol/L (98-107); Estimated Glomerular Filt Rate > 60; Glucose 87 mg/dL (65-110); Potassium 4.2 mmol/L (3.4-5.0); Sodium 139 mmol/L (137-145)
[2021-12-30 10:38] LABS: Free T4 Free Thyroxine 1.49 ng/mL (0.78-2.19)
[2021-12-30 10:46] LABS: Total Triiodothyronine (T3) 0.86 NG/ML (0.97-1.69)
[2021-12-30 11:30] LABS: Folic Acid > 20.0 ng/mL (2.76->20)
== END 2021-12-30 08:46 | disposition home or self-care (01) ==
LOC: ANHLAB 08:49
PROVIDERS: PCP Family Medicine; Visit Provider Internal Medicine Endocrinology, Diabetes & Metabolism
DX: E03.9 Hypothyroidism, unspecified (principal)
CPT/HCPCS: 36415; 80053; 82607; 82746; 84439; 84443; 84480

== ENCOUNTER 2022-01-06 11:03 | Outpatient (CLI) | payer OTHER, SELFPAY ==
[2022-01-06 13:55] LABS: Iron 88 ug/dL (37-170)
[2022-01-06 14:04] LABS: Percent Iron Saturation 30 % (20-50)
== END 2022-01-06 11:04 | disposition home or self-care (01) ==
LOC: ANHLAB 11:06
PROVIDERS: PCP Family Medicine
DX: D50.8 Other iron deficiency anemias (principal)
CPT/HCPCS: 36415; 83540; 83550

== ENCOUNTER 2022-02-18 11:49 | Outpatient (CLI) | payer OTHER, SELFPAY ==
[2022-02-18 12:08] LABS: Basophils Percent Auto 0.6 % (0.2-1.2); Eosinophils Absolute Auto 0.1 K/mm3 (0-0.3); Eosinophils Percent Auto 2.2 % (0-4.4); Hematocrit 41.5 % (37.0-47.0); Hemoglobin 13.5 g/dL (12.0-15.0); Immature Granulocyte Absolute 0.01 K/mm3 (0.00-0.031); Immature Granulocyte Percent A 0.2 % (0-0.5); Lymphocytes Absolute Auto 1.68 K/mm3 (0.9-3.2); Lymphocytes Percent Auto 33.1 % (18.3-44.2); Mean Corpuscular HGB Conc 32.5 g/dl (32-36); Mean Corpuscular Hemoglobin 29.9 pg (26-34); Mean Corpuscular Volume 91.8 fl (80-100); Mean Platelet Volume 9.8 fl (7.4-10.4); Monocytes Absolute Auto 0.6 K/mm3 (0.1-0.6); Monocytes Percent Auto 11.8 % (2.6-8.5); Neutrophils Absolute Auto 2.6 K/mm3 (1.3-6.7); Neutrophils Percent Auto 52.1 % (45.5-73.1); Platelet Count Result 141 k/mm3 (150-375); Red Blood Count 4.52 M/mm3 (4.2-5.4); Red Cell Distribution Width 13.2 % (11.5-14.5); White Blood Count 5.1 K/mm3 (4.5-10.0)
[2022-02-18 12:31] LABS: Transferrin 199 mg/dL (206-381)
[2022-02-18 12:53] LABS: Thyroid Stimulating Hormone 0.502 uIU/mL (0.465-4.680)
[2022-02-18 13:19] LABS: Iron 73 ug/dL (37-170)
[2022-02-18 13:29] LABS: Percent Iron Saturation 26 % (20-50)
[2022-02-18 13:37] LABS: Vitamin D 25 Hydroxy 67.4 ng/mL
== END 2022-02-18 11:50 | disposition home or self-care (01) ==
PROVIDERS: PCP Family Medicine
DX: D50.8 Other iron deficiency anemias (principal); Z98.84 Bariatric surgery status; E21.3 Hyperparathyroidism, unspecified
CPT/HCPCS: 36415; 82306; 83540; 83550; 84443; 84466; 85025

== ENCOUNTER 2022-03-04 10:09 | Outpatient (CLI) | payer OTHER, SELFPAY ==
[2022-03-04 10:42] LABS: Basophils Percent Auto 0.7 % (0.2-1.2); Eosinophils Absolute Auto 0.1 K/mm3 (0-0.3); Eosinophils Percent Auto 3.1 % (0-4.4); Hematocrit 39.9 % (37.0-47.0); Immature Granulocyte Absolute 0.01 K/mm3 (0.00-0.031); Immature Granulocyte Percent A 0.2 % (0-0.5); Immature Platelet Fraction Pct 3.1 % (0.9-11.2); Lymphocytes Absolute Auto 1.58 K/mm3 (0.9-3.2); Lymphocytes Percent Auto 35.3 % (18.3-44.2); Mean Corpuscular HGB Conc 32.6 g/dl (32-36); Mean Corpuscular Hemoglobin 29.9 pg (26-34); Mean Corpuscular Volume 91.7 fl (80-100); Mean Platelet Volume 10.1 fl (7.4-10.4); Monocytes Absolute Auto 0.5 K/mm3 (0.1-0.6); Monocytes Percent Auto 12.1 % (2.6-8.5); Neutrophils Absolute Auto 2.2 K/mm3 (1.3-6.7); Neutrophils Percent Auto 48.6 % (45.5-73.1); Platelet Count Result 154 k/mm3 (150-375); Red Blood Count 4.35 M/mm3 (4.2-5.4); Red Cell Distribution Width 12.7 % (11.5-14.5); White Blood Count 4.5 K/mm3 (4.5-10.0)
[2022-03-04 10:50] LABS: Alanine Aminotransferase 20 U/L (6-35); Albumin Level 3.8 g/dL (3.5-5.1); Alkaline Phosphatase 42 U/L (38-126); Anion Gap 8 mmol/L (8-16); Aspartate Amino Transferase 23 U/L (14-36); Bilirubin,Total 0.7 mg/dL (0.2-1.3); Blood Urea Nitrogen 18 mg/dL (7-17); Calcium 8.1 mg/dL (8.4-10.2); Carbon Dioxide 29 mmol/L (22-30); Chloride 105 mmol/L (98-107); Estimated Glomerular Filt Rate > 60; Glucose 97 mg/dL (65-110); Potassium 4.5 mmol/L (3.4-5.0); Sodium 142 mmol/L (137-145)
[2022-03-04 11:20] LABS: Thyroid Stimulating Hormone 0.109 uIU/mL (0.465-4.680)
[2022-03-04 11:22] LABS: Free T4 Free Thyroxine 2.04 ng/mL (0.78-2.19); Vitamin D 25 Hydroxy 67.1 ng/mL
== END 2022-03-04 10:10 | disposition home or self-care (01) ==
PROVIDERS: PCP Family Medicine
DX: E55.9 Vitamin D deficiency, unspecified (principal); Z98.84 Bariatric surgery status
CPT/HCPCS: 36415; 80053; 82306; 84439; 84443; 84481; 85025; 85055

== ENCOUNTER 2022-03-11 12:24 | Outpatient (CLI) | payer OTHER, SELFPAY ==
--- NOTE | ~2022-03-11 | CT_ITS ---
EXAMINATION: CT abdomen pelvis w con DATE: 03/11/2022 13:20 INDICATION: EXOCRINE PANCREATIC INSUFFICIENCY TECHNIQUE: Computed tomography (CT) of the abdomen and pelvis was performed with 100 mL Omnipaque-350 intravenous contrast. Automated exposure control and iterative reconstruction technique were employe d. The dose-length product was 958.83 mGy-cm. COMPARISON: None. FINDINGS: Lower thorax: Right middle lobe scar. Dependent atelectasis/scar mild coronary artery calcification. Liver: Normal. Biliary/Gallbladder: Gallbladder is normal. No bile duct dilation. Pancreas: No mass or duct dilation. Spleen: Normal. Adrenals:No mass. Kidneys: Subcentimeter left inferior pole hypodensity, too small to characterize but most likely a cy st. No suspicious masses. No hydronephrosis. Punctate nonobstructing lower pole calculi in the left i nferior pole. GI tract: Mild distal esophageal and proximal gastric wall edema Prior gastric surgery. No small or l arge bowel dilation. Normal appendix. Mesentery/Peritoneum: No ascites, mass, or free air. Retroperitoneum: No mass. Pelvis: Mild bladder wall thickening in a partially distended urinary bladder, otherwise the pelvic o rgans are within normal limits. Soft Tissues: Soft tissues and body wall unremarkable. Bones: No acute osseous finding. IMPRESSION: Mild esophagitis/gastritis. Mild urinary bladder wall thickening, may be related to inadequate disten tion or cystitis in the appropriate clinical context. Reviewed, dictated and finalized at location K. IMPRESSION: Mild esophagitis/gastritis. Mild urinary bladder wall thickening, may be relate d to inadequate distention or cystitis in the appropriate clinical context.
== END 2022-03-11 12:25 | disposition home or self-care (01) ==
LOC: ANHIMG 12:25
PROVIDERS: PCP Family Medicine; Visit Provider Internal Medicine Endocrinology, Diabetes & Metabolism
DX: K86.81 Exocrine pancreatic insufficiency (principal); K20.90 Esophagitis, unspecified without bleeding; K29.70 Gastritis, unspecified, without bleeding
CPT/HCPCS: 74177; Q9967

== ENCOUNTER 2022-04-20 11:15 | Outpatient (CLI) | payer OTHER, SELFPAY ==
[2022-04-20 11:55] LABS: Alanine Aminotransferase 26 U/L (6-35); Albumin Level 4.1 g/dL (3.5-5.1); Alkaline Phosphatase 43 U/L (38-126); Anion Gap 8 mmol/L (8-16); Aspartate Amino Transferase 24 U/L (14-36); Bilirubin,Total 0.7 mg/dL (0.2-1.3); Blood Urea Nitrogen 22 mg/dL (7-17); Calcium 8.5 mg/dL (8.4-10.2); Carbon Dioxide 30 mmol/L (22-30); Chloride 103 mmol/L (98-107); Estimated Glomerular Filt Rate > 60; Glucose 97 mg/dL (65-110); Potassium 4.3 mmol/L (3.4-5.0); Sodium 141 mmol/L (137-145)
[2022-04-20 12:40] LABS: Free T4 Free Thyroxine 1.21 ng/mL (0.78-2.19)
[2022-04-25 20:55] LABS: Triiodothyronine T3 Free 2.6 pg/mL (2.3-4.2)
== END 2022-04-20 11:16 | disposition home or self-care (01) ==
PROVIDERS: PCP Family Medicine; Visit Provider Internal Medicine Endocrinology, Diabetes & Metabolism
DX: K86.81 Exocrine pancreatic insufficiency (principal); E03.9 Hypothyroidism, unspecified
CPT/HCPCS: 36415; 80053; 84439; 84443; 84481

== ENCOUNTER 2022-04-21 11:41 | Outpatient (NON) | payer OTHER, SELFPAY ==
[2022-05-02 23:28] LABS: Pancreatic Elastase, Stool 109 mcg/g
== END 2022-04-21 11:42 | disposition home or self-care (01) ==
PROVIDERS: PCP Family Medicine; Visit Provider Internal Medicine Endocrinology, Diabetes & Metabolism
DX: K86.81 Exocrine pancreatic insufficiency (principal); E03.9 Hypothyroidism, unspecified
CPT/HCPCS: 82653

== ENCOUNTER 2022-07-15 09:26 | Outpatient (CLI) | payer OTHER, SELFPAY ==
--- NOTE | ~2022-07-15 | MM_ITS ---
EXAMINATION: MM screening ilya BI w misti HISTORY: Screening mammogram TECHNIQUE: Craniocaudal and mediolateral oblique 3-D tomosynthesis images were obtained and synthetic 2-D images were generated. Bilateral rotated lateral CC views. CAD analysis was submitted and interp reted. COMPARISON: 02/22/2021, 12/18/2019 bilateral screening mammogram examinations BREAST PARENCHYMAL COMPOSITION: There are scattered areas of fibroglandular density. FINDINGS: There is no evidence of suspicious mass, calcification, or architectural distortion to sugg est malignancy in either breast. There has been no suspicious interval change. IMPRESSION: 1. No mammographic evidence of malignancy. 2. Recommend routine screening mammography in one year. BI-RADS Category 1: Negative Reviewed, dictated and finalized at location A. L [employer]
== END 2022-07-15 09:27 | disposition home or self-care (01) ==
PROVIDERS: PCP Family Medicine; Visit Provider Obstetrics & Gynecology
DX: Z12.31 Encounter for screening mammogram for malignant neoplasm of breast (principal)
CPT/HCPCS: 77063; 77067

== ENCOUNTER 2022-08-05 07:05 | Outpatient (CLI) | payer OTHER, SELFPAY ==
[2022-08-05 08:08] LABS: Alanine Aminotransferase 22 U/L (6-35); Albumin Level 3.8 g/dL (3.5-5.1); Alkaline Phosphatase 40 U/L (38-126); Anion Gap 6 mmol/L (8-16); Aspartate Amino Transferase 21 U/L (14-36); Bilirubin,Total 0.5 mg/dL (0.2-1.3); Blood Urea Nitrogen 24 mg/dL (7-17); Calcium 8.2 mg/dL (8.4-10.2); Carbon Dioxide 30 mmol/L (22-30); Chloride 105 mmol/L (98-107); Estimated Glomerular Filt Rate > 60; Glucose 99 mg/dL (65-110); Potassium 4.3 mmol/L (3.4-5.0); Sodium 141 mmol/L (137-145)
[2022-08-05 09:15] LABS: Folic Acid > 20.0 ng/mL (2.76->20)
[2022-08-05 09:36] LABS: Free T4 Free Thyroxine 1.21 ng/mL (0.78-2.19)
[2022-08-09 03:12] LABS: Thyroid Peroxidase Antibodies 1 IU/mL (<9)
[2022-08-09 04:30] LABS: Triiodothyronine T3 Free 2.5 pg/mL (2.3-4.2)
== END 2022-08-05 07:06 | disposition home or self-care (01) ==
LOC: ANHLAB 07:08
PROVIDERS: PCP Family Medicine; Visit Provider Internal Medicine Endocrinology, Diabetes & Metabolism
DX: E03.9 Hypothyroidism, unspecified (principal)
CPT/HCPCS: 36415; 80053; 82607; 82746; 84439; 84443; 84481; 86376

== ENCOUNTER 2022-09-30 10:08 | Outpatient (CLI) | payer OTHER, SELFPAY ==
[2022-09-30 11:41] LABS: Basophils Percent Auto 0.3 % (0.2-1.2); Eosinophils Absolute Auto 0.2 K/mm3 (0-0.3); Eosinophils Percent Auto 2.8 % (0-4.4); Hematocrit 45.3 % (37.0-47.0); Hemoglobin 14.6 g/dL (12.0-15.0); Immature Granulocyte Absolute 0.01 K/mm3 (0.00-0.031); Immature Granulocyte Percent A 0.2 % (0-0.5); Lymphocytes Absolute Auto 1.49 K/mm3 (0.9-3.2); Lymphocytes Percent Auto 23.3 % (18.3-44.2); Mean Corpuscular HGB Conc 32.2 g/dl (32-36); Mean Corpuscular Hemoglobin 29.3 pg (26-34); Mean Corpuscular Volume 90.8 fl (80-100); Mean Platelet Volume 10.9 fl (7.4-10.4); Monocytes Absolute Auto 0.6 K/mm3 (0.1-0.6); Neutrophils Absolute Auto 4.1 K/mm3 (1.3-6.7); Neutrophils Percent Auto 63.4 % (45.5-73.1); Platelet Count Result 162 k/mm3 (150-375); Red Blood Count 4.99 M/mm3 (4.2-5.4); White Blood Count 6.4 K/mm3 (4.5-10.0)
[2022-09-30 11:56] LABS: Iron 86 ug/dL (37-170)
[2022-09-30 11:59] LABS: Alanine Aminotransferase 27 U/L (6-35); Alkaline Phosphatase 45 U/L (38-126); Anion Gap 4 mmol/L (8-16); Aspartate Amino Transferase 28 U/L (14-36); Bilirubin,Total 0.5 mg/dL (0.2-1.3); Blood Urea Nitrogen 27 mg/dL (7-17); Calcium 8.4 mg/dL (8.4-10.2); Carbon Dioxide 31 mmol/L (22-30); Chloride 104 mmol/L (98-107); Cholesterol 139 mg/dL (0-200); Estimated Glomerular Filt Rate > 60; Glucose 100 mg/dL (65-110); HDL Direct 42 mg/dL; Phosphorus 3.6 mg/dL (2.5-4.5); Potassium 3.9 mmol/L (3.4-5.0); Sodium 139 mmol/L (137-145); Triglycerides 151 mg/dL (<150)
[2022-09-30 12:06] LABS: Percent Iron Saturation 26 % (20-50)
[2022-09-30 12:09] LABS: Parathyroid Intact 60.9 pg/mL (7.5-53.5)
[2022-09-30 12:10] LABS: LDL Cholesterol Direct 65 mg/dL
[2022-09-30 12:33] LABS: Ferritin 8.73 ng/mL (6.24-137)
[2022-09-30 13:04] LABS: Folic Acid > 20.0 ng/mL (2.76->20)
[2022-10-07 10:53] LABS: Vitamin B1 15 nmol/L (8-30)
== END 2022-09-30 10:09 | disposition home or self-care (01) ==
PROVIDERS: PCP Family Medicine; Referring Provider Obstetrics & Gynecology
DX: E03.9 Hypothyroidism, unspecified (principal)
CPT/HCPCS: 36415; 80053; 80061; 82306; 82607; 82728; 82746; 83540; 83550; 83735; 83970; 84100; 84425; 84443; 85025

== ENCOUNTER 2023-01-04 11:12 | Outpatient (CLI) | payer OTHER, SELFPAY ==
--- NOTE | ~2023-01-04 | US_ITS ---
EXAMINATION: US venous doppler LE RT DATE: 01/04/2023 11:41 INDICATION: Right lower limb swelling TECHNIQUE: Grayscale ultrasound images without and with compression and Doppler ultrasound images of the right lower extremity veins were obtained. COMPARISON: None. FINDINGS: The visualized portions of right common femoral vein, profunda (deep) femoral vein, femoral vein, pop liteal vein, peroneal trunk, posterior tibial veins, peroneal veins, gastrocnemius vein and greater s aphenous vein outflow are patent. IMPRESSION: 1. No deep venous thrombosis in the right lower limb. Reviewed, dictated and finalized at location A.
== END 2023-01-04 11:13 | disposition home or self-care (01) ==
PROVIDERS: PCP Family Medicine
DX: R22.41 Localized swelling, mass and lump, right lower limb (principal)
CPT/HCPCS: 93971

== ENCOUNTER 2023-03-16 08:55 | Outpatient (CLI) | payer OTHER, SELFPAY ==
[2023-03-16 09:38] LABS: Basophils Percent Auto 0.7 % (0.2-1.2); Eosinophils Absolute Auto 0.1 K/mm3 (0-0.3); Eosinophils Percent Auto 2.1 % (0-4.4); Hematocrit 42.1 % (37.0-47.0); Hemoglobin 13.3 g/dL (12.0-15.0); Lymphocytes Absolute Auto 1.42 K/mm3 (0.9-3.2); Lymphocytes Percent Auto 33.1 % (18.3-44.2); Mean Corpuscular HGB Conc 31.6 g/dl (32-36); Mean Corpuscular Hemoglobin 28.3 pg (26-34); Mean Corpuscular Volume 89.6 fl (80-100); Mean Platelet Volume 10.6 fl (7.4-10.4); Monocytes Absolute Auto 0.5 K/mm3 (0.1-0.6); Monocytes Percent Auto 12.1 % (2.6-8.5); Neutrophils Absolute Auto 2.2 K/mm3 (1.3-6.7); Platelet Count Result 141 k/mm3 (150-375); Red Cell Distribution Width 12.4 % (11.5-14.5); White Blood Count 4.3 K/mm3 (4.5-10.0)
[2023-03-16 09:47] LABS: Alanine Aminotransferase 28 U/L (6-35); Alkaline Phosphatase 47 U/L (38-126); Anion Gap 1 mmol/L (8-16); Aspartate Amino Transferase 31 U/L (14-36); Bilirubin,Total 0.6 mg/dL (0.2-1.3); Blood Urea Nitrogen 23 mg/dL (7-17); Calcium 8.4 mg/dL (8.4-10.2); Carbon Dioxide 34 mmol/L (22-30); Chloride 104 mmol/L (98-107); Cholesterol 133 mg/dL (0-200); Estimated Glomerular Filt Rate > 60; Glucose 90 mg/dL (65-110); HDL Direct 44 mg/dL; Potassium 4.2 mmol/L (3.4-5.0); Sodium 139 mmol/L (137-145); Triglycerides 48 mg/dL (<150)
[2023-03-16 09:58] LABS: LDL Cholesterol Direct 75 mg/dL
[2023-03-16 10:12] LABS: Free T4 Free Thyroxine 1.42 ng/mL (0.78-2.19); Vitamin D 25 Hydroxy 77.3 ng/mL
[2023-03-16 10:17] LABS: Thyroid Stimulating Hormone 0.867 uIU/mL (0.465-4.680)
[2023-03-19 14:29] LABS: Insulin Level Total 3.9 uIU/mL (<=19.6)
[2023-03-21 06:38] LABS: Triiodothyronine T3 Free 2.7 pg/mL (2.3-4.2)
== END 2023-03-16 08:56 | disposition home or self-care (01) ==
PROVIDERS: PCP Family Medicine; Referring Provider Internal Medicine Endocrinology, Diabetes & Metabolism; Visit Provider Obstetrics & Gynecology
DX: Z00.00 Encounter for general adult medical examination without abnormal findings (principal); E03.9 Hypothyroidism, unspecified; R73.01 Impaired fasting glucose
CPT/HCPCS: 36415; 80053; 80061; 82306; 82607; 83036; 83525; 84439; 84443; 84481; 85025

== ENCOUNTER 2023-05-01 14:52 | Emergency (ER) | payer OTHER, SELFPAY ==
--- NOTE | ~2023-05-01 | XR_ITS ---
EXAMINATION: XR hand LT min 3V, XR wrist LT 2V DATE: 05/01/2023 15:37 INDICATION: Radial sided left hand and wrist pain post fall TECHNIQUE: 1. Posteroanterior, ulnar deviation, oblique, and lateral views of the left wrist were obtained. 2. Dorsal palmar, oblique and lateral views of the left hand were obtained. COMPARISON: None. FINDINGS: Alignment of the hand and wrist is normal. No fracture identified. Joint spaces are normal. There a ppears be soft tissue swelling with thickening but without evident stranding of the subcutaneous fat at the dorsal distal forearm. IMPRESSION: 1. No osseous abnormality. Reviewed, dictated and finalized at location A. ING GRAPPLE OPERATOR IMPRESSION: 1. No osseous abnormality. IMPRESSION: 1. No osseous abnormality.
[2023-05-01 15:15] VITALS: BP 116/63; PULSE 66; RESP 16; TEMP 36.4; O2SAT 100
--- NOTE | 2023-05-01 16:53 | ED.FALL ---
HPI - Fall General Chief Complaint: Fall Stated Complaint: fall Time Seen by Provider: 05/01/23 16:28 Source: patient and family Mode of arrival: ambulatory Limitations: no limitations History of Present Illness HPI Narrative: This is a 48 yo R hand dominant female who presents with left hand pain after a FOOSH yesterday. She states she tripped on uneven ground and landed on her bilateral outstretched hands. No syncope. She has been having a headache but denies hitting her head. She trialed some meloxicam yesterday and kept it elevated last night. No paresthesias but her hand is cool. Related Data Home Medications Medication Instructions Recorded Confirmed levothyroxine 75 mcg tablet 75 mcg PO DAILY 07/17/20 09/21/21 Vitamin D3 1,000 mcg PO DAILY 07/24/20 09/21/21 multivit with minerals-iron 18 1 tablet PO DAILY 07/24/20 09/21/21 mg-folic ac 400 mcg-vit K 25 mcg tablet (Adults Multivitamin) thiamine HCl (vitamin B1) 1 tab-cap PO DAILY 07/24/20 09/21/21 ferrous sulfate 325 mg (65 mg 650 mg PO TID 09/21/21 09/21/21 iron) tablet (FeroSul) Allergies Allergy/AdvReac Type Severity Reaction Status Date / Time hydromorphone [From Dilaudid] Allergy Severe Difficulty Verified 05/01/23 14:53 Breathing amoxicillin [From Augmentin] Allergy Mild Hives Verified 05/01/23 14:53 clavulanic acid Allergy Mild Hives Verified 05/01/23 14:53 [From Augmentin] [facility] Past Medical History Medical History Hypothyroid Surgical History Surgical History No pertinent past surgical history Family History Family History Mother Diabetes mellitus Hypertension Social History Social History (Updated 05/02/23 @ 10:15 by Rosa Catherine MD) Smoking status: Former smoker Substance use: never Living arrangements: with family Occupation/Education: occupation 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 Gender identity (if verbalized by the patient): Female Sexual Orientation (if Verbalized by the Patient): Straight or Heterosexual Spiritual care concerns: No Exam Const: General: healthy appearing, no acute distress and alert; No confusion, diaphoretic or ill appearing Nutritional Appearance: well nourished Orientation/consciousness: patient oriented x3 Limitations: no limitations HENMT: Head: no contusions and no hematomas Other: gross auditory acuity intact; Eyes: Other: strabismus Resp: Effort & Inspection: normal respiratory effort, not labored, no retractions, not tachypneic and no use of accessory muscles Cardio: Rate: regular rate Other: Strong 2+ radial pulse on left; cool hand and fingers on left but with brisk capillary refill throughout fingers; Dopplerable ulnar and radial arteries in left hand using handheld device Skin: Other: skin intact without open wounds on the left; ecchymosis along ulnar aspect of left lateral hand; cool left hand and fingers. Small abrasion on right palm. Ecchymosis overlying metacarpals especially on ulnar aspect. Neuro: Other: sensation intact to touch throughout hand and across lateral aspects of all fingers; 5/5 strenght with wrist flexion and extension Extrem: Other: no left hand snuffbox TTP; Assumes position of function; no fixed digital flexion or extension Psych: Mental Status: mental status grossly normal Affect: normal affect Attitude: cooperative Course Vital Signs Vital signs: Vital Signs Temperature 97.6 F 05/01/23 15:15 Pulse Rate 66 05/01/23 15:15 Respiratory Rate 16 05/01/23 15:15 Blood Pressure 116/63 05/01/23 15:15 Pulse Oximetry 100 05/01/23 15:15 Oxygen Delivery Room Air 05/01/23 15:15 Temperature 97.6 F 05/01/23 15:15 Pulse Rate 68 05/01/23 17:30 Respira
[2023-05-01] MEDS: KETOROLAC 30 MG/ML VIAL (*BKC) 15 MG IM (17:22)
[2023-05-01] MEDS: ACETAMINOPHEN 500 MG TABLET 1000 MG PO (17:23)
[2023-05-01 17:30] VITALS: BP 127/81; PULSE 68; RESP 15; O2SAT 100
--- NOTE | 2023-05-01 17:31 | PC.NURSE ---
no velcro wrist braces available. applied marilu wrap and gave pt an extra for home per their request. pt was referred to drug store for wrist brace for comfort. cmsw intact after intervention.
== END 2023-05-01 17:32 | disposition home or self-care (01) ==
PROVIDERS: Emergency Provider Student in an Organized Health Care Education/Training Program; PCP Family Medicine
DX: S60.212A Contusion of left wrist, initial encounter (principal); E03.9 Hypothyroidism, unspecified; Z87.891 Personal history of nicotine dependence; W01.0XXA Fall on same level from slipping, tripping and stumbling without subsequent striking against object, initial encounter
CPT/HCPCS: 29125; 73100; 73130; 96372; 99283; A9270; J1885

== ENCOUNTER 2023-09-15 08:11 | Outpatient (CLI) | payer OTHER, SELFPAY ==
[2023-09-15 09:08] LABS: Basophils Percent Auto 0.6 % (0.2-1.2); Eosinophils Absolute Auto 0.1 K/mm3 (0-0.3); Eosinophils Percent Auto 2.2 % (0-4.4); Hematocrit 41.6 % (37.0-47.0); Hemoglobin 13.1 g/dL (12.0-15.0); Immature Granulocyte Absolute 0.01 K/mm3 (0.00-0.031); Immature Granulocyte Percent A 0.2 % (0-0.5); Lymphocytes Absolute Auto 1.58 K/mm3 (0.9-3.2); Lymphocytes Percent Auto 31.6 % (18.3-44.2); Mean Corpuscular HGB Conc 31.5 g/dl (32-36); Mean Corpuscular Hemoglobin 26.4 pg (26-34); Mean Corpuscular Volume 83.9 fl (80-100); Mean Platelet Volume 10.9 fl (7.4-10.4); Monocytes Absolute Auto 0.6 K/mm3 (0.1-0.6); Monocytes Percent Auto 11.4 % (2.6-8.5); Neutrophils Absolute Auto 2.7 K/mm3 (1.3-6.7); Platelet Count Result 169 k/mm3 (150-375); Red Blood Count 4.96 M/mm3 (4.2-5.4); Red Cell Distribution Width 14.1 % (11.5-14.5)
[2023-09-15 09:31] LABS: Parathyroid Intact 45.1 pg/mL (7.5-53.5)
[2023-09-15 09:59] LABS: Alanine Aminotransferase 21 U/L (6-35); Albumin Level 3.9 g/dL (3.5-5.1); Alkaline Phosphatase 47 U/L (38-126); Anion Gap 3 mmol/L (8-16); Aspartate Amino Transferase 23 U/L (14-36); Bilirubin,Total 0.6 mg/dL (0.2-1.3); Blood Urea Nitrogen 26 mg/dL (7-17); Calcium 8.6 mg/dL (8.4-10.2); Carbon Dioxide 30 mmol/L (22-30); Chloride 107 mmol/L (98-107); Cholesterol 125 mg/dL (0-200); Estimated Glomerular Filt Rate > 60; Glucose 95 mg/dL (65-110); HDL Direct 44 mg/dL; Magnesium 2.3 mg/dL (1.6-2.3); Phosphorus 3.6 mg/dL (2.5-4.5); Potassium 4.3 mmol/L (3.4-5.0); Sodium 140 mmol/L (137-145); Triglycerides 65 mg/dL (<150)
[2023-09-15 10:10] LABS: LDL Cholesterol Direct 73 mg/dL
[2023-09-15 11:24] LABS: Folic Acid > 20.0 ng/mL (2.76->20)
[2023-09-15 12:01] LABS: Iron 49 ug/dL (37-170)
[2023-09-15 12:37] LABS: Ferritin 6.89 ng/mL (6.24-137)
[2023-09-21 09:22] LABS: Vitamin B1 18 nmol/L (8-30)
== END 2023-09-15 08:12 | disposition home or self-care (01) ==
PROVIDERS: PCP Family Medicine; Referring Provider Obstetrics & Gynecology; Visit Provider Nurse Practitioner Family
DX: E03.9 Hypothyroidism, unspecified (principal); Z98.84 Bariatric surgery status; K90.9 Intestinal malabsorption, unspecified
CPT/HCPCS: 36415; 80053; 80061; 82306; 82607; 82728; 82746; 83540; 83735; 83970; 84100; 84425; 84443; 85025

== ENCOUNTER 2023-10-02 15:52 | Outpatient (CLI) | payer OTHER, SELFPAY ==
--- NOTE | ~2023-10-02 | MM_ITS ---
EXAMINATION: MM screening ilya BI w misti HISTORY: Screening mammogram TECHNIQUE: Craniocaudal and mediolateral oblique 3-D tomosynthesis images were obtained and synthetic 2-D images were generated. CAD analysis was submitted and interpreted. COMPARISON: 07/15/2022, 02/22/2021 bilateral screening mammogram examinations BREAST PARENCHYMAL COMPOSITION: There are scattered areas of fibroglandular density. FINDINGS: There is no evidence of suspicious mass, calcification, or architectural distortion to sugg est malignancy in either breast. There has been no suspicious interval change. IMPRESSION: 1. No mammographic evidence of malignancy. 2. Recommend routine screening mammography in one year. BI-RADS Category 1: Negative Reviewed, dictated and finalized at location A.
== END 2023-10-02 15:53 | disposition home or self-care (01) ==
PROVIDERS: PCP Family Medicine; Visit Provider Obstetrics & Gynecology
DX: Z12.31 Encounter for screening mammogram for malignant neoplasm of breast (principal)
CPT/HCPCS: 77063; 77067

== ENCOUNTER 2023-10-11 09:13 | Outpatient (CLI) | payer OTHER, SELFPAY ==
[2023-10-11 10:14] LABS: Basophils Percent Auto 0.4 % (0.2-1.2); Eosinophils Absolute Auto 0.1 K/mm3 (0-0.3); Eosinophils Percent Auto 2.8 % (0-4.4); Hematocrit 41.8 % (37.0-47.0); Hemoglobin 13.1 g/dL (12.0-15.0); Immature Granulocyte Absolute 0.01 K/mm3 (0.00-0.031); Immature Granulocyte Percent A 0.2 % (0-0.5); Lymphocytes Absolute Auto 1.48 K/mm3 (0.9-3.2); Lymphocytes Percent Auto 31.7 % (18.3-44.2); Mean Corpuscular HGB Conc 31.3 g/dl (32-36); Mean Corpuscular Hemoglobin 25.8 pg (26-34); Mean Corpuscular Volume 82.3 fl (80-100); Monocytes Absolute Auto 0.6 K/mm3 (0.1-0.6); Monocytes Percent Auto 11.8 % (2.6-8.5); Neutrophils Absolute Auto 2.5 K/mm3 (1.3-6.7); Neutrophils Percent Auto 53.1 % (45.5-73.1); Platelet Count Result 187 k/mm3 (150-375); Red Blood Count 5.08 M/mm3 (4.2-5.4); Red Cell Distribution Width 14.6 % (11.5-14.5); White Blood Count 4.7 K/mm3 (4.5-10.0)
[2023-10-11 10:56] LABS: Vitamin D 25 Hydroxy 79.8 ng/mL
[2023-10-11 10:59] LABS: Alanine Aminotransferase 25 U/L (6-35); Albumin Level 4.5 g/dL (3.5-5.1); Alkaline Phosphatase 50 U/L (38-126); Anion Gap 7 mmol/L (4-12); Aspartate Amino Transferase 27 U/L (14-36); Bilirubin,Total 0.7 mg/dL (0.2-1.3); Blood Urea Nitrogen 28 mg/dL (7-17); Calcium 9.1 mg/dL (8.4-10.2); Carbon Dioxide 27 mmol/L (22-30); Chloride 108 mmol/L (98-107); Estimated Glomerular Filt Rate > 60; Glucose 95 mg/dL (65-110); Magnesium 2.5 mg/dL (1.6-2.3); Potassium 4.1 mmol/L (3.4-5.0); Sodium 142 mmol/L (137-145)
[2023-10-11 11:42] LABS: Folic Acid > 20.0 ng/mL (2.76->20)
== END 2023-10-11 09:14 | disposition home or self-care (01) ==
PROVIDERS: PCP Family Medicine
DX: R26.81 Unsteadiness on feet (principal); R20.2 Paresthesia of skin
CPT/HCPCS: 36415; 80053; 82306; 82607; 82746; 83735; 85025

== ENCOUNTER 2024-03-24 23:36 | Emergency (ER) | payer OTHER, SELFPAY ==
[2024-03-25 00:12] VITALS: BP 100/52; PULSE 63; RESP 17; TEMP 36.6; O2SAT 100
[2024-03-25 05:20] VITALS: BP 127/62; PULSE 60; RESP 20; TEMP 36.4; O2SAT 100
--- NOTE | 2024-03-25 05:23 | PC.NURSE ---
Patient states she takes Meloxicam for an old back injury.
[2024-03-25 06:22] VITALS: BP 100/68; PULSE 60; RESP 20; TEMP 36.6; O2SAT 100
--- NOTE | 2024-03-25 09:02 | ED.GENADULT ---
HPI - General Adult General Chief complaint: Back Pain/Injury Stated complaint: bilateral ear pain, neck & back pain Time Seen by Provider: 03/25/24 07:03 History of Present Illness HPI narrative: 48-year-old female presenting with 2 complaints. First pain ear pain and fullness. Patient has history of chronic sinus congestion. She is on Flonase cleared him. He developed pain in her left ear over the last several days. It is associated with sinus congestion. No fevers chills, cough or difficulty breathing. This 2nd complaint is back pain. Patient has pain that goes from her neck all way to her tailbone. This pain is chronic and she has had since 2017. She says it frequently flares up and she requires more pain medication. The pain is described as an achy pain throughout her back that is worse with movement. It does not radiate. Not associated with history of IV drug abuse cancer fevers lower extremity weakness urinary retention or bowel incontinence. Related Data Home Medications Medication Instructions Recorded Confirmed levothyroxine 75 mcg tablet 75 mcg PO DAILY 07/17/20 09/21/21 Vitamin D3 1,000 mcg PO DAILY 07/24/20 09/21/21 multivit with minerals-iron 18 1 tablet PO DAILY 07/24/20 09/21/21 mg-folic ac 400 mcg-vit K 25 mcg tablet (Adults Multivitamin) thiamine HCl (vitamin B1) 1 tab-cap PO DAILY 07/24/20 09/21/21 ferrous sulfate 325 mg (65 mg 650 mg PO TID 09/21/21 09/21/21 iron) tablet (FeroSul) Allergies Allergy/AdvReac Type Severity Reaction Status Date / Time hydromorphone [From Dilaudid] Allergy Severe Difficulty Verified 03/24/24 23:37 Breathing amoxicillin [From Augmentin] Allergy Mild Hives Verified 03/24/24 23:37 clavulanic acid Allergy Mild Hives Verified 03/24/24 23:37 [From Augmentin] [facility] Past Medical History Medical History Hypothyroid Surgical History Surgical History No pertinent past surgical history Family History Family History Mother Diabetes mellitus Hypertension Social History Social History Smoking status: Former smoker Substance use: never Living arrangements: with family Occupation/Education: occupation 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 Head: Serous effusion of the left ear, right tympanic membrane is normal, no erythema or exudates in posterior oropharynx, no swelling or evidence of infection in the mouth/floor of mouth. EYES: EOMI, NOSE: Atraumatic NECK: Trachea midline, soft, no meningismus RESPIRATORY: No increased rate of breathing clear to auscultation CARDIOVASCULAR: RRR, ABDOMINAL: Non-distended soft nontender MUSCULOSKELETAl: No tenderness palpation along the cervical spine thoracic or lumbar spine. No tenderness on the paracervical muscles. Patient is able ambulate. NEURO: Alert. Moving 4/4 extremities SKIN:: Warm, dry. Normal color PSYCHIATRIC: Normal affect Course Vital Signs Vital signs: Vital Signs Temperature 97.9 F 03/25/24 00:12 Pulse Rate 63 03/25/24 00:12 Respiratory Rate 17 03/25/24 00:12 Blood Pressure 100/52 L 03/25/24 00:12 Pulse Oximetry 100 03/25/24 00:12 Oxygen Delivery Room Air 03/25/24 00:12 Temperature 98 F 03/25/24 06:22 Pulse Rate 60 03/25/24 06:22 Respiratory Rate 20 03/25/24 06:22 Blood Pressure 100/68 03/25/24 06:22 Pulse Oximetry 100 03/25/24 06:22 Oxygen Delivery Room Air 03/25/24 00:12 Medical Decision Making MDM Narrative Medical decision making narrative: -Course: 48-year-old
[2024-03-25] MEDS: ACETAMINOPHEN 500 MG TABLET 1000 MG PO (09:14)
[2024-03-25] MEDS: KETOROLAC 15 MG/ML VIAL (*BKC) IV PUSH (09:14)
[2024-03-25] MEDS: methocarbamoL 750 MG TABLET 1500 MG PO (09:15)
[2024-03-25] MEDS: guaiFENesin 12 HR 600 MG TABCR 1200 MG PO (09:19)
[2024-03-25 09:36] VITALS: BP 101/55; PULSE 62; RESP 18; O2SAT 100
== END 2024-03-25 09:38 | disposition home or self-care (01) ==
PROVIDERS: Emergency Provider Emergency Medicine; PCP Family Medicine
DX: H92.02 Otalgia, left ear (principal); M54.9 Dorsalgia, unspecified; G89.29 Other chronic pain; E03.9 Hypothyroidism, unspecified; Z87.891 Personal history of nicotine dependence
CPT/HCPCS: 96374; 99284; A9270; J1885

== ENCOUNTER 2024-08-03 08:28 | Emergency (ER) | payer OTHER, SELFPAY ==
--- OUTSIDE RECORDS SUMMARY | 2024-08-03 08:30 | XMS_ITS | Clinical Summary ---
Author Organization [facility] Address [address] [place] [id number] Care Team Providers Care Md Senior Research Scientist Name Role Phone Neeraj Jenkins MD Primary Care Provider [phone] Allergies Active Allergy Reactions Criticality Noted Date Comments Amoxicillin-Pot Clavulanate Hives 11/07/19 20 Bee Venom Swelling 06/02/2020 Hydromorphone Anaphylaxis High 11/07/2019 Medications meloxicam 7.5 MG tablet Take 1 tablet (7.5 mg total) by mouth daily. 30 tablet 0 Active Additional Information Patient taking differently:7.5 mg OralDAILY PRN, Reported on 05/29/2024 albuterol sulfate HFA 108 (90 Base) MCG/ACT inhaler Inhale 2 puffs into the lungs every 4 (four) hours as needed. Active calcium carbonate (OS-LEIGH) 1250 (500 Ca) MG tablet Take 1 tablet (1,250 mg total) by mouth 2 (two) times daily. Active levothyroxine (SYNTHROID) 100 MCG tablet Take 1 tablet (100 mcg total) by mouth daily. Active montelukast (SINGULAIR) 10 MG tablet Take 1 tablet (10 mg total) by mouth daily. 4 Active Multiple Vitamins-Minera ls (CENTRUM SILVER) Tab Take 1 tablet by mouth daily. Active omeprazole (PRILOSEC) 40 MG capsule Take 1 capsule (40 mg total) by mouth daily. 4 Active Pancrelipase, Fxw-Uwfm-Ckaq, (ZENPEP) 58077-343613 units CAPSULE ENTERIC COATED PARTICLES Take 2 tablets by mouth 3 (three) times daily with meals. Active traMADol (ULTRAM) 50 MG tabletIndicatio ns:Acute Pain < 7 Day Supply Take 1 tablet (50 mg total) by mouth every 6 (six) hours as needed for Pain. Indications: Acute Pain < 7 Day Supply 20 tablet 4 Active lidocaine (LIDODERM) 5 % Place 1 patch onto the skin daily for 30 days. Remove & Discard patch within 12 hours or as directed by 30 patch 5 08/25/19 25 Active methocarbamol (ROBAXIN) 750 MG Tab Take 1 tablet (750 mg total) by mouth 3 (three) times daily for 5 days. 15 tablet 5 07/30/19 25 Encounters Date Type Department Care Team Description 07/25/2024 5:42 PM CAREER TECHNICAL EDUCATION TEACHER - 07/25/2024 6:31 PM CAREER TECHNICAL EDUCATION TEACHER Emergency [facility] [place] [address] Cathie Aleman PA Head Injury Discharge Disposition: Home or Self Care (Routine Discharge) 07/25/2024 Travel 05/29/2024 12:21 PM CAREER TECHNICAL EDUCATION TEACHER Anesthesia Event [facility] [place] [address] Cal Blank MD Jarvis, Brittany L, HOUSE SUPERVISOR 05/29/2024 12:09 PM CAREER TECHNICAL EDUCATION TEACHER - 05/29/2024 1:40 PM CAREER TECHNICAL EDUCATION TEACHER Surgery [facility] [place] [address] Cullen Saul MD SEPTOPLASTY, RIGHT MAXILLARY ANTROSTOMY, BILATERAL TURBINATE REDUCTION 05/29/2024 10:03 AM CAREER TECHNICAL EDUCATION TEACHER - 05/29/2024 2:15 PM CAREER TECHNICAL EDUCATION TEACHER Hospital Encounter [facility] [place] [address] Cullen Saul MD Discharge Disposition: Home or Self Care (Routine Discharge) 05/29/2024 Travel 05/20/2024 Travel from Last 3 Months Social History Tobacco Use Types Packs/Day Years Used Date Smoking Tobacco: Never Smokeless Tobacco: Never Alcohol Use Standard Drinks/Week Comments Never 0 (1 standard drink = 0.6 oz pur e alcohol) Comments No Sex and Gender Information Value Date Recorded Sex Assigned at Female 07/25/2024 4:39 PM CAREER TECHNICAL EDUCATION TEACHER Legal Sex Female 7:41 PM CDT Gender Identity Not on file Sexual Orientation Not on file Last Filed Vital Signs Vital Sign Reading Time Taken Comments Blood Pressure 108/54 07/25/2024 4:46 PM CAREER TECHNICAL EDUCATION TEACHER Pulse 62 07/25/2024 4:46 PM CAREER TECHNICAL EDUCATION TEACHER Temperature 36.8 C (98.2 F) 07/25/2024 4:46 PM CAREER TECHNICAL EDUCATION TEACHER Respiratory Rate 18 07/25/2024 4:46 PM CAREER TECHNICAL EDUCATION TEACHER Oxygen Saturation 100% 07/25/2024 4:46 PM CAREER TECHNICAL EDUCATION TEACHER Inhaled Oxygen Concentration - - Weight 92.1 kg (203 lb) 07/25/2024 4:46 PM CAREER TECHNICAL EDUCATION TEACHER Height 162.6 cm (5' 4 ) 07/25/2024 4:46 PM CAREER TECHNICAL EDUCATION TEACHER Body Mass Index 34.84 07/25/2024 4:46 PM CAREER TECHNICAL EDUCATION TEACHER Plan of Treatment Health Maintenance Due Date Last Done Comments Cervical Cancer Screening Pa p Smear (Age 30 to 64) Every 3 Years 1977 Colorectal Cancer Screening Colonoscopy (10 Years) 1977 Annual Physical 1980 Hepatitis C 1995 Hepatitis B Vaccines (1 of 3 - 19+ 3-dose series) 1996 Cervical Cancer Screening Pa p with HPV Testing (Age 30 to 64) Every 5 Years 2007 Cervical Cancer Screening wi HPV 2007 Mammogram Screening 2017 COVID-19 Vaccine (2023-2 5 season) 2024 Influenza Adult (#1) 2024 03/16/2011 DTaP, Tdap and Td Vaccines ( 3 - Td or Tdap) 09/12/2032 09/12/2022, 07/15/2010 Meningococcal B Vaccine Aged Out No l onger eligible based on patient's age to complete this topic Meningococcal Vaccine Aged Out No alix cali eligible based on patient's age to complete this topic Pneumococcal Vaccine: Pediatrics (0 to 5 Years) and At-Risk Patients (6 to 64 Years) Aged Out No longer eligible b ased on patient's age to complete this topic RSV Immunizations Under 20 Months Aged Out No longer eligible b ased on patient's age to complete this topic Procedures Procedure Name Priority Date/Time Associated Diagnosis Comments POCT URINE (BACK OFFICE) STAT 07/25/2024 5:48 PM CAREER TECHNICAL EDUCATION TEACHER CT CERV SPINE WO CON STAT 07/25/2024 5:20 PM CAREER TECHNICAL EDUCATION TEACHER CT HEAD WO CON STAT 07/25/2024 5:20 PM CAREER TECHNICAL EDUCATION TEACHER NSL/SINUS NDSC MAX ANTROST W/RMVL TISS MAX SINUS 05/29/2024 12:21 PM CAREER TECHNICAL EDUCATION TEACHER J32.0, J34.3, J34.2- CHRONIC SINUSITIS, TURBINATE HYPERTROPHY, DEVIATED SEPTUM Case Notes SCHED BY FAX 05/16/24 S PHONE ASSESS TEST URINE Routine 05/29/2024 10:30 AM CAREER TECHNICAL EDUCATION TEACHER from Last 3 Months Results * POCT urine (07/25/2024 5:48 PM CAREER TECHNICAL EDUCATION TEACHER) URINE HCG TEST NEGATIVE Internal Control: VALID us Cathie DELATORRE POINT OF CARE TEST ORDERABLES Final Result * CT HEAD WO CON (07/25/2024 5:20 PM CAREER TECHNICAL EDUCATION TEACHER) Anatomical Region Laterality Modality Head Computed Tomogra phy 07/25/2024 5:58 PM CAREER TECHNICAL EDUCATION TEACHER Impressions 07/25/2024 5:59 PM CAREER TECHNICAL EDUCATION TEACHER =====IMPRESSION:===== 1. No acute intracranial abnormality. Ordered By: CATHIE ALEMAN Interpreted By: Maik Sloan MD, 07/25/2024 5:58 PM Narrative 07/25/2024 5:59 PM CAREER TECHNICAL EDUCATION TEACHER [address] [address] EXAMINATION: CT of the head without contrast EXAM DATE/TIME: 07/25/2024 5:04 PM REASON FOR EXAM: head injury, persistent MURILLO COMPARISON: None TECHNIQUE: Noncontrast CT examination of the head was performed with axial images obtained. A dose lowering technique was used for this procedure, which may include, but is not limited to, dose reduction technique, automated exposure control, iterative reconstruction, ALARA (As Low As Reasonably Achievable), or Image Gently techniques. FINDINGS: There is a normal craniovertebral junction. Ventricles are normal in size morphology. Extra-axial CSF spaces are normal. No evidence of acute intracranial hemorrhage. There is no evidence of a focal intracranial mass lesion. No abnormal extra- axial fluid collection. There is no evidence of acute regional edema, mass effect or midline shift. The sella and CP angle regions are unremarkable. Mastoid air cells are clear bilaterally. Paranasal sinuses are clear. No evidence of acute depressed skull fracture. Procedure Note Maik Sloan MD - 07/25/2024 [facility] [address] [place], [place] [address] EXAMINATION: CT of the head without contrast EXAM DATE/TIME: 07/25/2024 5:04 PM REASON FOR EXAM: head injury, persistent MURILLO COMPARISON: None TECHNIQUE: Noncontrast CT examination of the head was performed with axialimages obtained. A dose lowering technique was used for this procedure,which may include, but is not limited to, dose reduction technique,automated exposure control, iterative reconstruction, ALARA (As Low AsReasonably Achievable), or Image Gently techniques. FINDINGS: There is a normal craniovertebral junction. Ventricles arenormal in size morphology. Extra-axial CSF spaces are normal. No evidenceof acute intracranial hemorrhage. There is no evidence of a focal intracranial mass lesion. No abnormalextra-axial fluid collection. There is no evidence of acute regionaledema, mass effect or midline shift. The sella and CP angle regions areunremarkable. Mastoid air cells are clear bilaterally. Paranasal sinusesare clear. No evidence of acute depressed skull fracture. =====IMPRESSION:===== 1. No acute intracranial abnormality. Ordered By: CATHIE ALEMAN Interpreted By: Maik Sloan MD, 07/25/2024 5:58 PM Cathie Aleman PA CT Final Result * CT CERV SPINE WO CON (07/25/2024 5:20 PM CAREER TECHNICAL EDUCATION TEACHER) Anatomical Region Laterality Modality Spine Computed Tomogra phy 07/25/2024 5:55 PM CAREER TECHNICAL EDUCATION TEACHER Impressions 07/25/2024 5:57 PM CAREER TECHNICAL EDUCATION TEACHER =====IMPRESSION:===== 1. No evidence of acute cervical spine fracture or dislocation. Ordered By: CATHIE ALEMAN Interpreted By: Maik Sloan MD, 07/25/2024 5:55 PM Narrative 07/25/2024 5:57 PM CAREER TECHNICAL EDUCATION TEACHER [address] [address] EXAMINATION: CT Cervical Spine without contrast. EXAM DATE/TIME: 07/25/2024 5:04 PM REASON FOR EXAM: neck pain, trauma COMPARISON: None TECHNIQUE: Axial images obtained from the level of skull base through the cervical spine without contrast using low-dose CT technique. Sagittal and coronal reconstruction. A dose lowering technique was used for this procedure, which may include, but is not limited to, dose reduction technique, automated exposure control, iterative reconstruction, ALARA (As Low As Reasonably Achievable), or Image Gently techniques. FINDINGS: There is a normal craniovertebral junction. Cervical vertebral bodies are in good alignment with straightening of the normal cervical lordosis. Cervical vertebral body heights are well-maintained. There is no acute prevertebral soft tissue swelling. Normal relationship between the anterior arch of C1 and the odontoid with some chronic degenerative change. There is no evidence of acute cervical spine fracture or dislocation. Chronic degenerative disc disease from C5 to C7. No significant acute paraspinous soft tissue abnormality. Procedure Note Maik Sloan MD - 07/25/2024 [facility] [address] [place], [place] [address] EXAMINATION: CT Cervical Spine without contrast. EXAM DATE/TIME: 07/25/2024 5:04 PM REASON FOR EXAM: neck pain, trauma COMPARISON: None TECHNIQUE: Axial images obtained from the level of skull base through thecervical spine without contrast using low-dose CT technique. Sagittal andcoronal reconstruction. A dose lowering technique was used for thisprocedure, which may include, but is not limited to, dose reductiontechnique, automated exposure control, iterative reconstruction, ALARA (AsLow As Reasonably Achievable), or Image Gently techniques. FINDINGS: There is a normal craniovertebral junction. Cervical vertebralbodies are in good alignment with straightening of the normal cervicallordosis. Cervical vertebral body heights are well-maintained. There is noacute prevertebral soft tissue swelling. Normal relationship between the anterior arch of C1 and the odontoid withsome chronic degenerative change. There is no evidence of acute cervicalspine fracture or dislocation. Chronic degenerative disc disease from C5to C7. No significant acute paraspinous soft tissue abnormality. =====IMPRESSION:===== 1. No evidence of acute cervical spine fracture or dislocation. Ordered By: CATHIE ALEMAN Interpreted By: Maik Sloan MD, 07/25/2024 5:55 PM Cathie Aleman PA CT Final Result * TEST URINE (05/29/2024 10:30 AM CAREER TECHNICAL EDUCATION TEACHER) URINE HCG TEST NEGATIVE NEGATIVE [facility] Comment:[id number] Internal Control: VALID VALID [facility] URINE SPECIMEN FROM URETHRA / Unknown 05/29/2024 10:30 AM CAREER TECHNICAL EDUCATION TEACHER us Cal Blank MD URINE ORDERABLES Final Result [facility] [address] [place] [address], from Last 3 Months Insurance Care Teams Md Senior Research Scientist Relationship Specialty Start Date End Date Neeraj Jnekins MD PCP - General FAMILY PRACTICE 10/09/23
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
--- OUTSIDE RECORDS SUMMARY | 2024-08-03 08:30 | XMS_ITS | Encounter Summary ---
Author Organization [facility] Address [address] [place] [address] Care Team Providers Care Biologics Specialist Name Role Phone Conversion, History Primary Care Provider Estee elias Encounter Details Date Type Department Care Team (Late st Contact Info) Description 01/19/2007 Outpatient Historical [facility] Phuc Carias MD [address] [place] [address] Er, Authorized P NO ADDRESS ON FILE Unspecified Hemorrhage in Early , Antepartum (Primary Dx) Social History Tobacco Use Types Packs/Day Years Used Date Smoking Tobacco: Never Assessed Comments Unknown Sex and Gender Information Value Date Recorded Sex Assigned at Not on file Legal Sex Female 4:51 AM CHANGE ANALYST Gender Identity Not on file Sexual Orientation Not on file documented as of this encounter Plan of Treatment Not on file documented as of this encounter Procedures Procedure Name Priority Date/Time Associated Diagnosis Comments CBC WITH DIFFERENTIAL Routine 01/19/2007 3:45 PM CDT CBC WITH DIFFERENTIAL Routine 01/19/2007 3:45 PM CDT HCG QUANTITATIVE, BLOOD Routine 01/19/2007 3:45 PM CDT documented in this encounter Results * BETA HCG QUANTITATIVE, BLOOD (01/19/2007 3:45 PM CDT) HCG QUANT, BLOOD <5 0 - 5 mIU/mL INTERFACE SYSTEM Comment: Result of 5 - 25 mIU/mL is indeterminant for , repeat of test recommemded in 48 hours. Reference Range: Gestational Age: 3 Weeks 5.8 - 71.2 mIU/mL 4 Weeks 9.5 - 750 mIU/mL 5 Weeks 217 - 7138 mIU/mL 6 Weeks 158 - 31,795 mIU/mL 7 Weeks 3697 - 163,563 mIU/mL 8 Weeks 32,065 - 149,571 mIU/mL 9 Weeks 63,803 - 151,410 mIU/mL 10 Weeks 46,509 - 186,977 mIU/mL 12 Weeks 27,832 - 210,612 mIU/mL 14 Weeks 13,950 - 62,530 mIU/mL 15 Weeks 12,039 - 70,971 mIU/mL 16 Weeks 9040 - 56,451 mIU/mL 17 Weeks 8175 - 55,868 mIU/mL 18 Weeks 8099 - 58,176 mIU/mL Heterophile antibodies and other interfering substances in the serum of some patients may cause a false-positive result in this assay. Before making a diagnosis of malignancy or etopic ,the result of this test should be confirmed with a urine HCG test and correlated with other clinical evidence. 01/19/2007 3:45 PM CDT Narrative INTERFACE SYSTEM - 01/19/2007 4:22 PM CDT Ordered by an unspecified provider. us Historical Provider CHEMISTRY ORDERABLES Edited INTERFACE SYSTEM Refer to clinic/hospital department * CBC WITH DIFFERENTIAL (01/19/2007 3:45 PM CDT) NEUTROPHILS 50 45 - 70 % INTERFAC E SYSTEM LYMPHOCYTES 37 16 - 45 % INTERFAC E SYSTEM MONOCYTES 11 3 - 13 % INTERFACE SYSTEM EOSINOPHILS 2 0 - 7 % INTERFAC E SYSTEM BASOPHILS 0 0 - 2 % INTERFACE SYSTEM NEUTROPHIL ABSOLUTE 5.36 1.90 - 7.00 K/uL INTERFACE SYSTEM LYMPHOCYTE ABSOLUTE 3.98 0.70 - 4.50 K/uL INTERFACE SYSTEM MONOCYTE ABSOLUTE 1.12 0.10 - 1.30 K/uL INTERFACE SYSTEM EOSINOPHIL ABSOLUTE 0.17 0.00 - 0.70 K/uL INTERFACE SYSTEM BASOPHILS ABSOLUTE 0.02 0.00 - 0.20 K/uL INTERFACE SYSTEM 01/19/2007 3:45 PM CDT Narrative INTERFACE SYSTEM - 01/19/2007 3:54 PM CDT Ordered by an unspecified provider. Historical Provider HEMATOLOGY ORDERABLES Edited Performing Organization Address City/State/[place] Co de Phone Number INTERFACE SYSTEM Refer to clinic/hospital department * (ABNORMAL) CBC WITH DIFFERENTIAL (01/19/2007 3:45 PM CDT) WBC 10.7(H) 4.0 - 9.8 K/uL INTERFACE SYSTEM RBC 5.14(H) 3.90 - 4.90 M/uL INTERFACE SYSTEM HEMOGLOBIN 15.0(H) 11.8 - 14.8 g/dL INTERFACE SYSTEM HEMATOCRIT 43.3 35.5 - 44.0 % INTERFACE SYSTEM MCV 84.2 82.0 - 99.0 fL INTERFACE SYSTEM MCH 29.2 27.2 - 32.6 pg INTERFACE SYSTEM MCHC 34.6 31.5 - 35.5 % INTERFACE SYSTEM RDW 13.6 11.5 - 14.5 % INTERFACE SYSTEM RDW-STDEV 41.1 37.1 - 48.7 fL INTERFACE SYSTEM PLATELETS 205 140 - 350 K/uL INTERFACE SYSTEM MPV 10.2 9.3 - 12.4 fL INTERFACE SYSTEM 01/19/2007 3:45 PM CDT Narrative INTERFACE SYSTEM - 01/19/2007 3:54 PM CDT Ordered by an unspecified provider. Historical Provider HEMATOLOGY ORDERABLES Edited Performing Organization Address City/[facility]/[place] Co de Phone Number INTERFACE SYSTEM Refer to clinic/hospital department documented in this encounter Visit Diagnoses Diagnosis Unspecified hemorrhage in early , antepartum- Primary documented in this encounter Care Teams Biologics Specialist Relationship Specialty Start Date End Date Conversion, History PCP - General 01/19/07 documented as of this encounter
--- OUTSIDE RECORDS SUMMARY | 2024-08-03 08:30 | XMS_ITS | Encounter Summary ---
Author Organization [employer] Address [address] [place] [address] Care Team Providers Care Melt House Centrifugal Operator Name Role Phone Conversion, History Primary Care Provider Estee elias Encounter Details Date Type Department Care Team (Late st Contact Info) Description 07/29/1999 Outpatient Historical [facility] Jake Michelle MD [address] [place] [id number] Er, Authorized P NO ADDRESS ON FILE Painful respiration (Primary Dx) Social History Tobacco Use Types Packs/Day Years Used Date Smoking Tobacco: Never Assessed Comments Unknown Sex and Gender Information Value Date Recorded Sex Assigned at Not on file Legal Sex Female 4:51 

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
--- OUTSIDE RECORDS SUMMARY | 2024-08-03 08:30 | XMS_ITS | Patient Health Summary ---
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 service. Informed consent was obtained from the patient, following the explanation of risks and benefits with the risks including but not limited to bleeding, infection, spinal headache, damage to nerve roots. Six lumbar type vertebrae are present. A total of 12 ribs were noted bilaterally on real-time fluoroscopy. With the patient in the prone position, the area over the lumbar spine at the L4 was localized and marked. The area was prepped and draped in the usual sterile fashion. Local anesthesia was achieved with 1% lidocaine. Using a 20-gauge 6 inch spinal needle, access was obtained and CSF was seen at the needle hub. The opening pressure was 17.5 cm of CSF. Approximately 14 cc of clear CSF was obtained for testing. The needle was removed, and the area was dressed with a Band-Aid. Patient was returned to the floor in good condition. Procedure Note Jevon Gonzlaez MD - 03/17/2011 INDICATION: Headache. PROCEDURE: Fluoroscopic-guided lumbar puncture was ordered by the clinical service. Informed consent was obtained from the patient, following the explanation of risks and benefits with the risks including but not limited to bleeding, infection, spinal headache, damage to nerve roots. Six lumbar type vertebrae are present. A total of 12 ribs were noted bilaterally on real-time fluoroscopy. With the patient in the prone position, the area over the lumbar spine at the L4 was localized and marked. The area was prepped and draped in the usual sterile fashion. Local anesthesia was achieved with 1% lidocaine. Using a 20-gauge 6 inch spinal needle, access was obtained and CSF was seen at the needle hub. The opening pressure was 17.5 cm of CSF. Approximately 14 cc of clear CSF was obtained for testing. The needle was removed, and the area was dressed with a Band-Aid. Patient was returned to the floor in good condition. IMPRESSION Fluoroscopically guided lumbar puncture performed by myself, Dr. Gonzalez, in the fluoroscopy department. Giovanni Elena MD FLUOROSCOPY ORDERAB LES * ARBOVIRUS ANTIBODY IGM CSF PANEL (03/16/2011 11:00 AM CDT) West Nile IgM Ab CSF 0.08 <=0.89 IV [facility] [place] Encephalitis Antibody IgM CSF < 1/1 <1/1 [facility] [place] Encephalitis Antibody IgM < 1/1 <1/1 Ratio [facility] Eastern Equine Encephalitis Antibody IgM CSF < 1/1 <1/1 Ratio [facility] West Equine IgM CSF < 1/1 <1/1 Ratio [facility] Comment Ref Lab [facility] Comment: Comments and Normal Ranges for Component WNV IgM AB CSF(IV) REFERENCE INTERVAL/ West Nile Virus Ab IgM by BLANCA, CSF 0.89 IV or less ........ Negative/ No significant level of West Nile virus IgM antibody detected. 0.90 - 1.10 IV ......... Equivocal/ Questionable presence of West Nile virus IgM antibody detected. Repeat testing in 10-14 days may be helpful. 1.11 IV or Greater ..... Positive/ Presence of IgM antibody to West Nile virus detected, which may suggest current or recent infection This test is intended to be used as a semi-quantitative means of detecting West Nile virus-specific IgM in CSF samples in which there is a clinical suspicion of West Nile virus infection. This test should not be used solely for quantitative purposes, nor should the results be used without correlation to clinical history or other data. Because other members of the Flaviviridae family, such as [place] encephalitis virus, show extensive cross-reactivity with West Nile virus, serologic testing specific for these species should be considered. The detection of antibodies to West Nile virus in cerebrospinal fluid may indicate central nervous system infection. However, consideration must be given to possible contamination by blood or transfer of serum antibodies across the blood-brain barrier. The international nurse has not determined the efficacy of this test when performed on CSF specimens. The performance characteristics of this test were determined by [employer]. Comments and Normal Ranges for Component SLE IgM [CSF] INTERPRETIVE DATA/ Mable IgM, CSF This test is intended to be used as a semi-quantitative means of detecting St.Marco virus-specific IgM in CSF samples in which there is a clinical suspicion of St.Marco virus infection. A positive result may suggest current or recent infection. This test should not be used solely for quantitative purposes, nor should the results be used without correlation to clinical history or other data. Because other members of the Flaviviridae family, such as West Nile virus, show extensive cross-reactivity with St.Marco virus, serologic testing specific for these species should also be performed. The international nurse has not determined the efficacy of this test when performed on CSF specimens. The performance characteristics of this test were determined by [employer]. Comments and Normal Ranges for Component *[place] IgM CSF(Ratio) INTERPRETIVE DATA/ [place] IgM, CSF This test is intended to be used as a semi-quantitative means of detecting [place] Encephalitis Group virus-specific IgM in CSF samples in which there is a clinical suspicion of [place] Encephalitis Group virus infection. A positive result for IgM may suggest current or recent infection. This test should not be used solely for quantitative purposes, nor should the results be used without correlation to clinical history or other data. [place] virus is related within the [place] Encephalitis Group and generally is reactive with antibody to other viruses within this group. The international nurse has not determined the efficacy of this test when performed on CSF specimens. The performance characteristics of this test were determined by [employer]. Comments and Normal Ranges for Component *East Equine IgM CSF(Ratio) INTERPRETIVE DATA/ Eastern IgM CSF This test is intended to be used as a semi-quantitative means of detecting eastern equine virus-specific IgM in CSF samples in which there is a clinical suspicion of eastern equine encephalitis virus infection. A positive result for IgM may suggest current or recent infection. This test should not be used solely for quantitative purposes, nor should the results be used without correlation to clinicalhistory or other data. Because other members of the Alphavirus family, such as western equine encephalitis virus, show extensive cross-reactivity with eastern equine encephalitis Virus, serologic testing specific for these species should also be performed. The international nurse has not determined the efficacy of this test when performed on CSF specimens. The performance characteristics of this test were determined by [facility]. Comments and Normal Ranges for Component *West Equine IgM CSF(Ratio) INTERPRETIVE DATA/ Western IgM, CSF This test is intended to be used as a semi-quantitative means of detecting western equine virus-specific IgM in CSF samples in which there is a clinical suspicion of western equine virus infection. A positive result for IgM may suggest current or recent infection. This test should not be used solely for quantitative purposes, nor should the results be used without correlation to clinical history or other data. Because other members of the Alphavirus family, such as eastern equine encephalitis virus, show extensive cross-reactivity with western equine encephalitis virus, serologic testing specific for these species should also be performed. The international nurse has not determined the efficacy of this test when performed on CSF specimens. The performance characteristics of this test were determined by [employer] [facility] [facility]. CEREBROSPINAL FLUID SPECIMEN / Unknown 03/16/2011 11:00 AM CDT 03/16/2011 8:52 PM CDT Narrative [facility] - 03/20/2011 9:53 AM CDT ADD ON Resulting Agency Comment Performed By [address] [address] Segundo Hunt MD LAB - BODY FLUID ORD ERABLES [facility] [address] [place] [address] * WEST NILE ANTIBODY IGM CSF (03/16/2011 11:00 AM CDT) [facility] Comment Ref Lab [facility] Comment: Comments and Normal Ranges for Component WNV IgM AB CSF(IV) REFERENCE INTERVAL/ West Nile Virus Ab IgM by BLANCA, CSF 0.89 IV or less ........ Negative/ No significant level of West Nile virus IgM antibody detected. 0.90 - 1.10 IV ......... Equivocal/ Questionable presence of West Nile virus IgM antibody detected. Repeat testing in 10-14 days may be helpful. 1.11 IV or Greater ..... Positive/ Presence of IgM antibody to West Nile virus detected, which may suggest current or recent infection This test is intended to be used as a semi-quantitative means of detecting West Nile virus-specific IgM in CSF samples in which there is a clinical suspicion of West Nile virus infection. This test should not be used solely for quantitative purposes, nor should the results be used without correlation to clinical history or other data. Because other members of the Flaviviridae family, such as [place] encephalitis virus, show extensive cross-reactivity with West Nile virus, serologic testing specific for these species should be considered. The detection of antibodies to West Nile virus in cerebrospinal fluid may indicate central nervous system infection. However, consideration must be given to possible contamination by blood or transfer of serum antibodies across the blood-brain barrier. The international nurse has not determined the efficacy of this test when performed on CSF specimens. The performance characteristics of this test were determined by [employer]. West Nile IgM Ab CSF 0.08 <=0.89 IV [facility] CEREBROSPINAL FLUID SPECIMEN / Unknown 03/16/2011 11:00 AM CDT 03/16/2011 8:52 PM CDT Narrative [facility] - 03/19/2011 2:36 PM CDT ADD ON Resulting Agency Comment Performed By [address] [address] Segundo Hunt MD LAB - BODY FLUID ORD ERABLES [facility] [address] [place] [address] * ANGIOTENSIN CONVERT ENZYME CSF (03/16/2011 11:00 AM CDT) [facility] Angiotensin-Co nverting Enzyme CSF 1.2 0.0 - 2.5 [facility] CEREBROSPINAL FLUID SPECIMEN / Unknown 03/16/2011 11:00 AM CDT 03/16/2011 9:35 PM CDT Narrative Resulting Agency Comment Performed By [address] [address] Segundo Hunt MD LAB - BODY FLUID ORD ERABLES Performing Organization Address City/[facility] Co de Phone Number [facility] [address] [place] [address] * ENTEROVIRUS PCR (03/16/2011 11:00 AM CDT) Pathologist [facility] Enterovirus by PCR NO Enterovirus RNA detected by polymerase chain reaction (PCR) Not Detected [facility] Additional Comment D [facility] Comment: Comments and Normal Ranges for Component The target for this PCR is a conserved region of the non-coding region of the enterovirus genome. This test was developed and it's performance characteristics determined by [facility]. It has not been cleared or approved by the U.S. Food and Drug Administration. Pursuant to the requirements of CLIA, this laboratory has established and verified the accuracy and precision of this test. Additional information about this type of test is available upon request. CEREBROSPINAL FLUID SPECIMEN / Unknown 03/16/2011 11:00 AM CDT 03/16/2011 8:52 PM CDT Narrative [facility] - 03/17/2011 2:35 PM CDT ADD ON Resulting Agency Comment Performed By [facility] - [facility] Segundo Hunt MD LAB - SEROLOGY ORDER PHUONG Performing Organization Address [facility] Co de Phone Number [facility] [address] [place] [address] * HERPES SIMPLEX PCR (03/16/2011 11:00 AM CDT) Pathologist [facility] Herpes Simplex Virus PCR NO Herpes Simplex Virus DNA detected by polymerase chain reaction. [facility] Additional Comment D [facility] Comment: Comments and Normal Ranges for Component The target for this PCR is a conserved region of the HSV-1 and HSV-2 DNA glycoprotein B gene. The detection limit is 10 copies of HSV DNA per reaction. This test was developed and its performance characteristics determined by the Virology Laboratory at [facility]. It has not been cleared or approved by the U.S. Food and Drug Administration. The FDA has determined that such clearance or approval is not necessary. This test is used for clinical purposes. It should not be regarded as investigational or for research. This laboratory is certified under the Clinical Laboratory Improvement Amendments of 1988 (CLIA-88)as qualified to perform high complexity clinical laboratory testing. CEREBROSPINAL FLUID SPECIMEN / Unknown 03/16/2011 11:00 AM CDT 03/16/2011 9:35 PM CDT Narrative [facility] - 03/17/2011 2:35 PM CDT Please do all the studies off CSF i* Resulting Agency Comment Performed By [facility] Giovanni Elena MD LAB - MICROBIOLOGY ORDERABLES Performing Organization Address [facility] Co de Phone Number [facility] [address] [place] [address] * GRAM STAIN SMEAR (03/16/2011 11:00 AM CDT) Gram Stain Moderate Lymphocytes, No Organisms Seen [facility] CEREBROSPINAL FLUID SPECIMEN / Unknown 03/16/2011 11:00 AM CDT 03/16/2011 11:28 AM CDT Segundo Hunt MD LAB - MICROBIOLOGY O RDERABLES Performing Organization Address [facility] de Phone Number [facility] [address] [place] [address] * CELL COUNT W DIFFERENTIAL CSF (03/16/2011 11:00 AM CDT) Color CSF colorless [facility] Character CSF clear [facility] RBC CSF 16 /cmm [facility] WBC CSF 40 /cmm [facility] Lymphocytes % CSF 95 % [facility] Monocytes % CSF 5 % [facility] Tube CSF 3 [facility] CEREBROSPINAL FLUID SPECIMEN / Unknown 03/16/2011 11:00 AM CDT 03/16/2011 11:28 AM CDT Segundo Hunt MD LAB - BODY FLUID ORD ERABLES Performing Organization Address [facility] Co de Phone Number [facility] [address] [place] [address] * PROTEIN CSF (03/16/2011 11:00 AM CDT) Protein CSF 38.0 15.0 - 45.0 mg/dl [facility] CEREBROSPINAL FLUID SPECIMEN / Unknown 03/16/2011 11:00 AM CDT 03/16/2011 11:28 AM CDT Segundo Hunt MD LAB - BODY FLUID ORD ERABLES Performing Organization Address City/[facility] Co de Phone Number [facility] [id number] [place] [address] * GLUCOSE CSF (03/16/2011 11:00 AM CDT) Glucose CSF 53 40 - 70 mg/dl [facility] CEREBROSPINAL FLUID SPECIMEN / Unknown 03/16/2011 11:00 AM CDT 03/16/2011 11:28 AM CDT Segundo Hunt MD LAB - BODY FLUID ORD ERABLES Performing Organization Address [facility] de Phone Number [facility] [address] [place] [id number] * CBC W/O DIFFERENTIAL (03/16/2011 2:55 AM CDT) WBC 7.7 4.5 - 11.0 1000/mm3 [facility] RBC 4.57 4.2 - 5.4 10X6 [facility] Hemoglobin 13.1 12.0 - 16.0 gm/dl [facility] Hematocrit 39.0 36.0 - 48.0 % [facility] MCV 85.3 80.0 - 99.0 fl [facility] MCH 28.7 25.0 - 31.0 pg [facility] MCHC 33.6 32.0 - 36.0 gm/dl [facility] RDW 13.0 11.5 - 14.5 % [facility] Platelet Count 202 130.0 - 400.0 1000/mm3 [facility] BLOOD SPECIMEN / Unknown 03/16/2011 2:55 AM CDT 03/16/2011 4:35 AM CDT Segundo Hunt MD LAB - HEMATOLOGY ORD ERABLES Performing Organization Address [facility] Co de Phone Number [facility] [address] [place] [id number] * T4 FREE (03/16/2011 2:55 AM CDT) T4 Free 1.02 0.65 - 1.34 ng/dl [facility] BLOOD SPECIMEN / Unknown 03/16/2011 2:55 AM CDT 03/16/2011 4:35 AM CDT Segundo Hunt MD LAB - CHEMISTRY ANGIE DÍAZ Performing Organization Address [facility] Co de Phone Number [facility] [address] [place] [address] * (ABNORMAL) CORTISOL BLOOD (03/15/2011 10:18 PM CDT) Only the most recent of3 resultswithin the time period is included. Cortisol 31.95(H) 3.09 - 22.40 ug/dl [facility] BLOOD SPECIMEN / Unknown 03/15/2011 10:18 PM CDT 03/15/2011 10:33 PM CDT Narrative [facility] - 03/16/2011 1:24 PM CDT 1 hour after ACTH stiumulation Resulting Agency Comment Performed By [facility] - [facility] [address] [place] [address] Segundo Hunt MD LAB - CHEMISTRY ANGIE DÍAZ Performing Organization Address [facility] de Phone Number [facility] [address] [place] [address] * MRI BRAIN NON CONTRAST (03/15/2011 6:02 PM CDT) Anatomical Region Laterality Modality Head Magnetic Resonan ce 03/15/2011 7:49 PM CDT Impressions 03/15/2011 7:59 PM CDT Unremarkable unenhanced MRI of the brain. Narrative 03/15/2011 7:59 PM CDT INDICATION: Syncope, hit head Technique: Axial diffusion, axial dual echo T2, axial and sagittal T1 and coronal FLAIR images of the brain obtained without IV contrast. FINDINGS: There is no restricted diffusion. There is no mass effect or midline shift. Ventricles and sulci are of normal size. The mastoids and paranasal sinuses appear clear. Major intracranial flow-voids are present. Procedure Note Niharika Payne MD - 03/15/2011 INDICATION: Syncope, hit head Technique: Axial diffusion, axial dual echo T2, axial and sagittal T1 and coronal FLAIR images of the brain obtained without IV contrast. FINDINGS: There is no restricted diffusion. There is no mass effect or midline shift. Ventricles and sulci are of normal size. The mastoids and paranasal sinuses appear clear. Major intracranial flow-voids are present. IMPRESSION Unremarkable unenhanced MRI of the brain. Giovanni Elena MD MR ORDERABLES * MRA ANGIO HEAD NON CONTRAST (03/15/2011 5:39 PM CDT) Anatomical Region Laterality Modality Head Magnetic Resonan ce 03/15/2011 7:50 PM CDT Impressions 03/15/2011 7:59 PM CDT Unremarkable MRV. Narrative 03/15/2011 7:59 PM CDT INDICATION: Syncope, head pain Technique: MRV images are performed. The major dural and intracranial venous sinuses are patent. There is no evidence of venous thrombosis. Procedure Note Niharika Payne MD - 03/15/2011 INDICATION: Syncope, head pain Technique: MRV images are performed. The major dural and intracranial venous sinuses are patent. There is no evidence of venous thrombosis. IMPRESSION Unremarkable MRV. Giovanni Elena MD MR ORDERABLES * XR CHEST 1VW PORTABLE (03/14/2011 7:27 PM CDT) Anatomical Region Laterality Modality Chest Radiographic Kylie ging 03/14/2011 7:44 PM CDT Impressions 03/14/2011 7:44 PM CDT No evidence of acute cardiopulmonary disease. Narrative 03/14/2011 7:44 PM CDT EXAMINATION: Portable AP chest radiograph CLINICAL INFORMATION: Fall, chest pain COMPARISON: None FINDINGS: The cardiomediastinal silhouette is within normal limits. Lung bases are clear. There is no evidence of focal infiltrate, effusion, or pneumothorax on this portable AP chest radiograph. Procedure Note Jevon Gonzalez MD - 03/14/2011 EXAMINATION: Portable AP chest radiograph CLINICAL INFORMATION: Fall, chest pain COMPARISON: None FINDINGS: The cardiomediastinal silhouette is within normal limits. Lung bases are clear. There is no evidence of focal infiltrate, effusion, or pneumothorax on this portable AP chest radiograph. IMPRESSION No evidence of acute cardiopulmonary disease. Cooper Gordon MD DIAGNOSTIC IMAGIN G ORDERABLES * TROPONIN I (03/14/2011 6:35 PM CDT) Pathologist [facility] Troponin I < 0.015 SEE BELOW ng/mL [facility] Comment: Normal <0.10 Aragon Zone 0.10-0.99 Positive >=1.00 SERUM OR PLASMA SPECIMEN / Unknown 03/14/2011 6:35 PM CDT 03/14/2011 6:56 PM CDT Cooper Gordon MD LAB - CHEMISTRY O RDERABLES Performing Organization Address [facility] Co de Phone Number [facility] [address] [place] [address] * PT PTT PANEL (03/14/2011 6:35 PM CDT) Pathologist [facility] PT 10.1 9.4 - 11.2 seconds [facility] INR 1.0 SEE BELOW [facility] Comment: 0.9-1.1 Normal 2.0-3.0 Conventional 2.5-3.5 Intensive PTT 24.7 24.0 - 32.0 seconds [facility] BLOOD SPECIMEN / Unknown 03/14/2011 6:35 PM CDT 03/14/2011 6:45 PM CDT Narrative [facility] - 03/14/2011 7:07 PM CDT Obtain if altered mental status, in* Cooper Gordon MD LAB - COAGULATION ORDERABLES Performing Organization Address [facility] Co de Phone Number [facility] [address] [place] [address] * TESTOSTERONE TOTAL (10/29/2010 8:12 AM CDT) Pathologist [facility] Testosterone 16 8 - 48 ng/dL [facility] ACCOUNT BILL BLOOD SPECIMEN / Unknown 10/29/2010 8:12 AM CDT 10/29/2010 2:23 PM CDT Narrative Resulting Agency Comment [facility] [address] [facility] [phone] Teodoro Huff MD LAB - CHEMISTRY ANGIE DÍAZ Performing Organization Address [facility] de Phone Number [facility] ACCOUNT BILL * (ABNORMAL) PROLACTIN (10/29/2010 8:12 AM CDT) Only the most recent of2 resultswithin the time period is included. Prolactin 4.2(L) 4.8 - 23.3 ng/mL [facility] ACCOUNT BILL BLOOD SPECIMEN / Unknown 10/29/2010 8:12 AM CDT 10/29/2010 2:23 PM CDT Narrative Resulting Agency Comment [facility] [address] [facility] [phone] Teodoro Huff MD LAB - CHEMISTRY ANGIE DÍAZ Performing Organization Address [facility] de Phone Number [facility] ACCOUNT BILL * LH (10/29/2010 8:12 AM CDT) LH 10.7 mIU/mL [facility] ACCOUNT BILL Comment: Follicular phase 2.4 - 12.6 Ovulation phase 14.0 - 95.6 Luteal phase 1.0 - 11.4 Postmenopausal 7.7 - 58.5 BLOOD SPECIMEN / Unknown 10/29/2010 8:12 AM CDT 10/29/2010 2:23 PM CDT Narrative Resulting Agency Comment [facility] [address] [facility] [phone] Teodoro Huff MD LAB - CHEMISTRY ANGIE DÍAZ Performing Organization Address [facility] Co de Phone Number [facility] ACCOUNT BILL * HYDROXYPROGESTERONE 17- (10/29/2010 8:12 AM CDT) 17-Hydroxyproge sterone LCMS 37 ng/dL [facility] ACCOUNT BILL Comment: Adult Female Follicular 15 - 70 Luteal 35 - 290 BLOOD SPECIMEN / Unknown 10/29/2010 8:12 AM CDT 10/29/2010 2:23 PM CDT Narrative Resulting Agency Comment [facility] [address] [phone] Teodoro Huff MD LAB - CHEMISTRY ANGIE DAÍZ Performing Organization Address City/[facility] Co de Phone Number [facility] ACCOUNT BILL * FSH (10/29/2010 8:12 AM CDT) FSH 4.8 mIU/mL [facility] ACCOUNT BILL Comment: Follicular phase 3.5 - 12.5 Ovulation phase 4.7 - 21.5 Luteal phase 1.7 - 7.7 Postmenopausal 25.8 - 134.8 BLOOD SPECIMEN / Unknown 10/29/2010 8:12 AM CDT 10/29/2010 2:23 PM CDT Narrative Resulting Agency Comment [facility] [address] [facility] [phone] Teodoro Huff MD LAB - CHEMISTRY ANGIE DÍAZ Performing Organization Address [facility] de Phone Number [facility] ACCOUNT BILL * (ABNORMAL) CORTISOL BLOOD AM (10/29/2010 8:12 AM CDT) Cortisol AM 0.5(L) 6.2 - 19.4 ug/dL [facility] ACCOUNT BILL BLOOD SPECIMEN / Unknown 10/29/2010 8:12 AM CDT 10/29/2010 2:23 PM CDT Narrative Resulting Agency Comment [facility] [address] [facility] [phone] Teodoro Huff MD LAB - CHEMISTRY ANGIE DÍAZ Performing Organization Address [facility] Co de Phone Number [facility] ACCOUNT BILL * PAP SMEAR IG HPV HR (PO REF LAB) (07/29/2010 2:17 PM MAILING SECTION CLERK) Diagnosis [facility] INSURANCE BILL Comment:NEGATIVE FOR INTRAEP ITHELIAL LESION AND MALIGNANCY. Specimen Adequacy [facility] INSURANCE BILL Comment: Satisfactory for evaluation. Endocervical and/or squamous metaplastic cells (endocervical component) are present. Clinician Provided ICD9 [facility] INSURANCE BILL Comment: 112.3 ; Candidiasis of skin and nails V72.31 ; Routine gynecological examination V73.81 ; Special screening examination, human papillomavirus [HPV] Performed by [facility] INSURANCE BILL Comment:Nadine Manuel ytotechnologist (ASCP) Comment . [facility] INSURANCE BILL Note [facility] INS[facility] BILL Comment: The Pap smear is a screening test designed to aid in the detection of premalignant and malignant conditions of the uterine cervix. It is not a diagnostic procedure and should not be used as the sole means of detecting cervical cancer. Both false-positive and false-negative reports do occur. . IGLBP CPT Code Automation [facility] INSURANCE BILL Comment: This liquid based ThinPrep(R) pap test was screened with the use of an image guided system. Human papillomavirus High Risk Negative Negative [facility] INSUR[facility] BILL Comment: This high-risk HPV test detects thirteen high-risk types (16/18/31/33/35/39/45/51/52/56/58/59/68) without differentiation. . MICROSCOPIC CYTOLOGIC EXAMINATION OF SMEAR OF SPECIMEN FROM FEMALE GENITAL TRACT PREPARED USING PAPANICOLAOU TECHNIQUE / Unknown 07/29/2010 2:17 PM MAILING SECTION CLERK 07/29/2010 9:13 PM MAILING SECTION CLERK Narrative [facility] INSURANCE BILL - 08/03/2010 2:17 PM MAILING SECTION CLERK No. of containers..01 CYTYC Thin Prep Vial Resulting Agency Comment [address] [phone] Max Walton DO LAB - PATHOLOGY/CYTO LOGY ORDERABLES [facility] INSURANCE BILL * PAP SMEAR IG RFLX HPV ASCU (PO REF LAB) (04/15/2009 2:42 PM CDT) Diagnosis [facility] INSURANCE BILL Comment:NEGATIVE FOR INTRAEP ITHELIAL LESION AND MALIGNANCY. Specimen Adequacy [facility] INSURANCE BILL Comment: Satisfactory for evaluation. Endocervical and/or squamous metaplastic cells (endocervical component) are present. Clinician Provided ICD9 [facility] INSURANCE BILL Comment:V72.31 ; Routine college or university department head ecological examination Performed by [facility] INS[facility] BILL Comment:Leatha Vega echnologist (ASCP) Comment . [facility] INSURANCE BILL Note [facility] INSURANCE BILL Comment: The Pap smear is a screening test designed to aid in the detection of premalignant and malignant conditions of the uterine cervix. It is not a diagnostic procedure and should not be used as the sole means of detecting cervical cancer. Both false-positive and false-negative reports do occur. . IGLBP CPT Code Automation [facility] INSURANCE BILL Comment: This liquid based ThinPrep(R) pap test was screened with the use of an image guided system. Reflex [facility] INSURANCE BILL Comment: The HPV DNA reflex criteria were not met with this specimen result therefore, no HPV testing was performed. . MICROSCOPIC CYTOLOGIC EXAMINATION OF SMEAR OF SPECIMEN FROM FEMALE GENITAL TRACT PREPARED USING PAPANICOLAOU TECHNIQUE / Unknown 04/15/2009 2:42 PM CDT 04/16/2009 12:54 AM CDT Narrative [facility] INSURANCE BILL - 04/20/2009 4:19 PM CDT LMP / Prev Treat...UQL=[id number];None No. of containers..01 CYTYC Thin Prep Vial Resulting Agency Comment [address] [phone] Max Walton DO LAB - PATHOLOGY/CYTO LOGY ORDERABLES [facility] INSURANCE BILL * US PELVIS WITH TRANSVAG NON OB (10/13/2008 3:30 PM CDT) Anatomical Region Laterality Modality Pelvis Other 10/13/2008 3:30 PM CDT Narrative 10/14/2008 6:12 PM CDT [facility] Patient- Peterson Seymour- 1975 Sex- Female Phone- [facility] Group Exam Date- 10/13/2008 Referring Physician- Max Walton Phone- Fax- EXAM- PELVIC ULTRASOUND (TRANSVAGINAL AND TRANSABDOMINAL) CLINICAL INFORMATION- Infertility. INTERPRETATION- Ultrasound examination of the pelvis demonstrates the uterus to have a normal size, outline, and echotexture, measuring 7.8 x 2.3 x 3.5 cm. The endometrium has a maximal diameter of 0.7 cm. Both ovaries are seen and are normal. Only a few small follicles are identified within the ovaries. The right ovary measures 2.8 x 1.9 x 2.0 cm and the left 2.6 x 1.7 x 1.7 cm. There is no evidence of an extrauterine mass or abnormal fluid collections. CONCLUSION- Normal pelvic ultrasound. EE-jjr Signed on 10/14/08 02-34 PM By Cliff Gonzalez M.D. Copied from [facility] Read By- CLIFF GONZALEZ M.D. Released By- CLIFF GONZALEZ M.D. Released Date Time- 10/14/081811 ADM- MAX WALTON- MAX WALTON REF- CON- PCP- MAX WALTON SCP- Procedure Note Cliff Gonzalez - 10/14/2008 [facility] Patient- Peterson Seymour - 1975 Sex- Female Phone- [facility] Group Exam Date- 10/13/2008 Referring Physician- Max Walton Phone- Fax- EXAM- PELVIC ULTRASOUND (TRANSVAGINAL AND TRANSABDOMINAL) CLINICAL INFORMATION- Infertility. INTERPRETATION- Ultrasound examination of the pelvis demonstrates the uterus to have a normal size, outline, and echotexture, measuring 7.8 x 2.3 x 3.5 cm. The endometrium has a maximal diameter of 0.7 cm. Both ovaries are seen and are normal. Only a few small follicles are identified within the ovaries. The right ovary measures 2.8 x 1.9 x 2.0 cm and the left 2.6 x 1.7 x 1.7 cm. There is no evidence of an extrauterine mass or abnormal fluid collections. CONCLUSION- Normal pelvic ultrasound. EE-jjr Signed on 10/14/08 02-34 PM By Cliff Gonzalez M.D. Copied from [facility] Read By- CLIFF GONZALEZ M.D. Released By- CLIFF GONZALEZ M.D. Released Date Time- 10/14/081811 - MAX WALTON ATT- MAX WALTON REF- CON- PCPMAX THORNTON SCP- Max Walton DO US ORDERABLES * HCG BETA BLOOD QUANTITATIVE (10/05/2008 1:22 PM CDT) hCG Value <2 mIU/mL [facility] INSURANCE BILL Comment: Female (Non-) <10 . Female () 1 D - 1 wk 5 - 50 1 - 2 wk 50 - 500 2 - 3 wk 100 - 5000 3 - 4 wk 500 - 99361 4 - 5 wk 1000 - 12676 5 - 6 wk 36051 -616909 6 - 8 wk 82813 -762988 2 - 3 mo [id number] -[id number] Yash Centaur/ACS methodology 10/05/2008 1:22 PM CDT 10/05/2008 9:16 PM CDT Narrative Resulting Agency Comment [facility] [address] [phone] Max Walton DO LAB - CHEMISTRY ANGIE DÍAZ [facility] Organization Address City/State/ZIP Co de Phone Number [facility] INSURANCE BILL Care Teams Soap Grinder Relationship Specialty Start Date End Date Orlando Curry MD NEED INFORMATION UPDATED PCP - General 09/03/20 [place] [address] [address] Obstetrics and Gynecology 02/28/12 [place] [address] [address] Pulmonary Disease 02/28/12
--- OUTSIDE RECORDS SUMMARY | 2024-08-03 08:30 | XMS_ITS | Encounter Summary ---
Author Organization [facility] Address [address] [place] [address] Care Team Providers Care Blast Furnace Keeper Helper Name Role Phone Conversion, History Primary Care Provider Estee elias Encounter Details Date Type Department Care Team (Late st Contact Info) Description 11/30/2002 Outpatient Historical [facility] Miguel Louise MD [address] [facility] [address] [place] [id number] Er, Authorized P NO ADDRESS ON FILE CONTUSION OF FOOT (Primary Dx) Social History Tobacco Use Types Packs/Day Years Used Date Smoking Tobacco: Never Assessed Comments Unknown Sex and Gender Information Value Date Recorded Sex Assigned at Not on file 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
--- OUTSIDE RECORDS SUMMARY | 2024-08-03 08:30 | XMS_ITS | Clinical Summary ---
Author Organization [facility] Address [address] [place] [phone] Phone Care Team Providers Care Completion Supervisor Name Role Phone Conversion, History Primary Care Provider Estee lable Allergies Active Allergy Reactions Criticality Noted Date Comments Amoxicillin-Pot Clavulanate Hives High 05/28/2015 Hydromorphone Other (See Comments) 05/28/2015 Respiratory depression. Pt states I stop breathing . Medications multivitamin (DAILY-ANDREE) tablet Take 1 Tablet by mouth daily. 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 Gender Identity Not on file Sexual Orientation Not on file Last Filed Vital Signs Vital Sign Reading Time Taken Comments Blood Pressure 119/70 09/14/2016 9:17 AM CDT Pulse 98 09/14/2016 9:17 AM CDT Temperature 36.9 C (98.5 F) 09/14/2016 9:17 AM CDT Respiratory Rate 21 09/14/2016 9:17 AM CDT Oxygen Saturation 97% 09/14/2016 9:17 AM CDT Inhaled Oxygen Concentration - - Weight 127.1 kg (280 lb 3.2 oz) 09/12/2016 4:38 AM CDT Height 162.6 cm (5' 4 ) 09/12/2016 4:38 AM CDT Body Mass Index 48.1 09/12/2016 4:38 AM CDT Plan of Treatment Health Maintenance Due Date Last Done Comments DTAP/TDAP/TD VACCINES (1 - Tdap) 1996 HEPATITIS B VACCINES (1 of 3 - 19+ 3-dose series) 03/26 CERVICAL CANCER SCREENING 2007 BREAST CANCER SCREENING 2017 COLORECTAL SCREENING 2022 Colorectal Cancer Screening 2022 FIT-DNA Q 3 years 2022 FIT/FOBT Q 1 year 2022 Flex Sig/CT Colonography Q 5 years 2022 INFLUENZA VACCINE (#1) 2024 Insurance RX [employer] (INTERNAL) [facility] Internal Plans Advance Directives For more information, please contact: [phone] * Full Code (Latest Code Status on File) Date Activated Date Inactivated Comments 09/12/2016 5:21 AM 09/14/2016 2:40 PM * Full Code Date Activated Date Inactivated Comments 09/12/2016 4:27 AM 09/12/2016 5:21 AM Care Teams Completion Supervisor Relationship Specialty Start Date End Date Conversion, History PCP - General 01/19/07
--- OUTSIDE RECORDS SUMMARY | 2024-08-03 08:30 | XMS_ITS | Encounter Summary ---
Author Organization [facility] Address [address] [place] [address] Care Team Providers Care Fur Trapper Name Role Phone Conversion, History Primary Care Provider Estee elias Encounter Details Date Type Department Care Team (Latest Contact Info) Description 01/27/2007 Outpatient Historical [facility] Aurora Cade MD [address] [facility] [address] [place] [address] Jolly Noguera MD [address] [facility] [address] [place] [address] Polyp of Corpus Uteri (Primary Dx) Social History Tobacco Use Types Packs/Day Years Used Date Smoking Tobacco: Never Assessed Comments Unknown Sex and Gender Information Value Date Recorded Sex Assigned at Not on file 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 Gender Identity Not on file Sexual Orientation Not on file documented as of this encounter Plan of Treatment Not on file documented as of this encounter Procedures Procedure Name Priority Date/Time Associated Diagnosis Comments HEMOGLOBIN AND HEMATOCRIT Routine 01/28/2007 8:25 AM CDT CBC WITH DIFFERENTIAL Routine 01/27/2007 11:22 AM CDT CBC WITH DIFFERENTIAL Routine 01/27/2007 11:22 AM CDT HCG QUANTITATIVE, BLOOD Routine 01/27/2007 11:22 AM CDT documented in this encounter Results * HEMOGLOBIN AND HEMATOCRIT (01/28/2007 8:25 AM CDT) HEMOGLOBIN 13.6 11.8 - 14.8 g/dL INTERFACE SYSTEM HEMATOCRIT 39.0 35.5 - 44.0 % INTERFACE SYSTEM 01/28/2007 8:25 AM CDT us Candy Zaragoza MD HEMATOLOGY ORDERABLES Edited INTERFACE SYSTEM Refer to clinic/hospital department * BETA HCG QUANTITATIVE, BLOOD (01/27/2007 11:22 AM CDT) [facility] HCG QUANT, BLOOD <5 0 - 5 [...] Before making a diagnosis of malignancy or ectopic ,the result of thi s test should be confirmed with a urine HCG test and correlated with other clinical evidence. 01/27/2007 11:2 2 AM CDT us Bony Gonzalez MD CHEMISTRY ORDERABLES Edited INTERFACE SYSTEM Refer to clinic/hospital department * CBC WITH DIFFERENTIAL (01/27/2007 11:22 AM CDT) NEUTROPHILS 54 45 - 70 % INTERFAC E SYSTEM LYMPHOCYTES 32 16 - 45 % INTERFAC E SYSTEM MONOCYTES 12 3 - 13 % INTERFACE SYSTEM EOSINOPHILS 2 0 - 7 % INTERFAC E SYSTEM BASOPHILS 0 0 - 2 % INTERFACE SYSTEM NEUTROPHIL ABSOLUTE 3.75 1.90 - 7.00 K/uL INTERFACE SYSTEM LYMPHOCYTE ABSOLUTE 2.21 0.70 - 4.50 K/uL INTERFACE SYSTEM MONOCYTE ABSOLUTE 0.87 0.10 - 1.30 K/uL INTERFACE SYSTEM EOSINOPHIL ABSOLUTE 0.17 0.00 - 0.70 K/uL INTERFACE SYSTEM BASOPHILS ABSOLUTE 0.01 0.00 - 0.20 K/uL INTERFACE SYSTEM 01/27/2007 11:2 2 AM CDT Bony Gonzalez MD HEMATOLOGY ORDERABLES Edited Performing Organization Address City/[facility] Co de Phone Number INTERFACE SYSTEM Refer to clinic/hospital department * (ABNORMAL) CBC WITH DIFFERENTIAL (01/27/2007 11:22 AM CDT) WBC 7.0 4.0 - 9.8 K/uL INTERFACE SYSTEM RBC 4.98(H) 3.90 - 4.90 M/uL INTERFACE SYSTEM HEMOGLOBIN 14.5 11.8 - 14.8 g/dL INTERFACE SYSTEM HEMATOCRIT 41.4 35.5 - 44.0 % INTERFACE SYSTEM MCV 83.1 82.0 - 99.0 fL INTERFACE SYSTEM MCH 29.1 27.2 - 32.6 pg INTERFACE SYSTEM MCHC 35.0 31.5 - 35.5 % INTERFACE SYSTEM RDW 13.6 11.5 - 14.5 % INTERFACE SYSTEM RDW-STDEV 41.0 37.1 - 48.7 fL INTERFACE SYSTEM PLATELETS 216 140 - 350 K/uL INTERFACE SYSTEM MPV 9.9 9.3 - 12.4 fL INTERFACE SYSTEM 01/27/2007 11:2 2 AM CDT Bony Gonzalez MD HEMATOLOGY ORDERABLES Edited Performing Organization Address [facility] Co de Phone Number INTERFACE SYSTEM Refer to clinic/hospital department documented in this encounter Visit Diagnoses Diagnosis Polyp of corpus uteri- Primary documented in this encounter Care Teams Fur Trapper Relationship Specialty Start Date End Date Conversion, History PCP - General 01/19/07 documented as of this encounter
--- OUTSIDE RECORDS SUMMARY | 2024-08-03 08:31 | XMS_ITS | Data Portability ---
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 [email or web address] Not available 12/03/2023 11:26:46 Plan of Treatment Reminders Order Date Submit Date Provider Last Modified By Organization Details Last Modified Time Details Appointments None recorde d. Lab vitamin B12 + folate, serum or blood 2023 024 CANASERAGA EVENS, [address] [place] [address], [place] [address], [place], [address], 4 16:40:08 vitamin D, 25-hydr oxy, total, serum 2023 024 CANASERAGA EVENS, [address] [place] [address], [facility] [address], [place], [address], 4 16:40:08 magnesi um, serum or plasma 2023 024 CANASERAGA EVENS, [address] [place] [address], [facility] [address], [place], [address], 4 13:12:50 CBC w/ auto diff 2023 024 [facility], [facility], [address], [place], [address], 4 13:12:31 CMP, serum or plasma 2023 024 TERE [facility], [address] [facility], [address], [place], [address], 4 13:11:03 Referral gastroe nterolo gist referra l 2022 023 TERE Miller MD, [address] [place], [address], 3 11:21:[address] st referra l 2023 024 TERE [facility], Elva Islas, [place], [address], 4 16:56:34 Procedures None recorde d. Surgeries None recorde d. Imaging MRI, brain, w/ contras t 2023 024 [facility] Scheduling, [facility], [place], [address], 4 17:33:53 MRI, cervica l spine, w/o contras t 2023 024 [facility] (Central Scheduling), [address] [place], [address], 4 16:16:18 Medication Orders flutica sone propion ate 50 mcg/act uation nasal spray,s uspensi on 2022 023 TERE [facility], [address], [place], [id number], 3 17:05:25 doxycyc line hyclate 100 mg tablet 2022 023 [email or web address] [facility], [address], [place], [id number], 4 14:11:38 Saline Nasal 0.65 % spray aerosol 2022 023 [email or web address] [facility], [address], [place], [id number], 5 14:33:14 Patient TargetsNo targets recorded. Patient Instructions Encounter Date Encounter Id Patient Instructions Last Modified By Organization Details Last Modified Time 03/05/2023 [id number] I was present and available in the family medicine clinic to discuss the patient's care during the appointment and the case was discussed with me. I agree with the resident's assessment and plan as documented. HL [email or web address] Not available 03/05/2023 17:31:14 10/09/2023 [id number] agree w plan and treatment and was present Dr. Oral gatica Not available 10/09/2023 15:39:09 10/22/2023 [id number] I was present and available in the Family Medicine clinic to discuss this patient's care during the appointment. I agree with the resident's assessment and plan as documented. KGR [email or web address] Not available 10/22/2023 12:38:57 12/03/2023 [id number] A healthy lifestyle: care instructions [email or web address] Not available 12/03/2023 11:46:47 I was present and available in the Family Medicine clinic to discuss this patient's care for the duration of the appointment. I agree with the resident's assessment and plan as documented with the following addendum: None. Dr. Jose Lee MD Attending Physician, [facility]. 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 Referral for Screening for malignant neoplasm of colon Referring Physician: Von Jenkins, Airplane Mechanic Apprentice, Encounter Date: 03/05/2023 Physical Therapist Referral for Paresthesia of upper limb Referring Physician: Jordan Camacho Airplane Mechanic Apprentice, Encounter Date: 12/03/2023 Endocrinology Referral for E xocrine pancreatic insufficiency previously seen by Niharika Arcos Referring Physician: Gary Oconnell, Airplane Mechanic Apprentice, Encounter Date: 07/25/2024 Results Created Date Observation Date Name Description Value Unit Range Abnormal Flag Note LastModifiedBy Organization Detail LastModifiedTime 05/01/20 23 05/01/2023 XR, hand No observ ation record ed. [address] [facility], [place], [address], 05/07/2023 14:28:38 10/02/19 24 10/02/2023 MAMMO , scree jeanine, tomos ynthe sis, bilat eral No observ ation record ed. [address], [place], [address], 10/10/2023 09:13:15 10/11/[address], head, w/o contr ast [facility] [place] [address] [place] [address] EXAMIN ATION: CT OF THE HEAD WITHOU T CONTRA ST ACCESS ION: [id number] EXAM DATE/T LEAH: 024 10:46 AM REASON FOR EXAM: unstea diness on feet Left arm spasms .. Leg cramps .. Parest hesias . COMPAR HARMONY: None TECHNI QUE: Noncon trast CT examin ation of the head was perfor med with axial images obtain ed. A dose loweri ng techni que was used for this proced ure, which may includ e, but is not limite d to, dose reduct ion techni que, automa layne exposu re contro l, iterat fara recons tructi on, ALARA (As Low As Reason ably Achiev able), or Image Gently techni ques. FINDIN GS: No eviden ce of scalp hemato ma or signif icant soft tissue swelli ng. Near total opacif icatio n of partia lly visual ized right maxill abbey sinus. No gross osseou s erosio n. Other superi or parana henry air cells are well aerate d. Mastoi d air cells are well aerate d. Intrac ranial ly, no eviden ce of hemorr darryn, mass effect , or midlin e shift. CSF spaces are within normal limits . Minor intrac ranial vascul ar calcif icatio ns. District Recruiter ior crania l fossa are unrema rkable . =====I MPRESS ION:== === No eviden ce of acute intrac ranial hemorr darryn, mass effect , or midlin e shift. Specif ically no distin ct abnorm ality within the line service person ior fossa. Near total opacif icatio n of partia lly visual ized right maxill abbey sinus may be due to chroni c inflam matory proces s. ====== ====== ====== === Ordere d By: VON Cunningham onical ly Signed By: Dinorah Estrada on 12:53 PM Interp reted By: Dinorah Estrada , 12:49 PM [email or web address] [facility] (Imaging & Mammogram) [address] [place] [address], [address], 10/29/2023 09:44:57 11/17/19 24 XR, cervi claritza spine , 2 or 3 [place] [address] [place] [address] Examin ation: Cervic al spine , 3 views Access ion: [id number] Exam Date/T leah: 2:16 PM Reason For Exam: PAREST HESIA OF SKIN Headac hes and bilate ral neck pain Compar harmony: None Techni que: AP, latera l, and odonto id views of the cervic al spine are obtain ed. Findin gs: The dens is intact . Latera l masses of C1 approp riatel y positi oned. Visual ized lung apices clear. No prever tebral soft tissue swelli ng. Atlant odenta l distan ce approp riate. No fractu re or disloc ation. Cervic al verteb ral body height s and alignm ent preser ford. Minima l multil evel facet diseas e. Minima l multil evel degene rative disc diseas e. ===== IMPRES CHRIS: ===== 1. Minima l multil evel degene rative change s with no acute osseou s abnorm ality by plain film evalua tion. Referr ed By: VON Kim Electr onical ly Signed By: Ashwin barragan MD on 6:31 AM Interp reted By: Ashwin barragan MD, 6:30 AM [email or web address] [facility] - Radiology [address] [place], [address], 11/23/2023 14:00:01 11/20/19 24 MRI, brain , w/wo contr ast [facility] [place] [address] [facility] [place] [address] CONCHA YBARRA S: MRI BRAIN WWO CON DATE: 1:58 PM CLINIC AL HISTOR Y: . Headac hes. Neck pain.. Loss of admissions director in left hand. COMPAR HARMONY: No Compar isons. . Correl ation with head CT of CONTRA ST 10 cc of MultiH ance. FINDIN GS: No acute proces s. No eviden ce of intrac ranial mass or pathol ogic contra st enhanc ement. No acute major vessel infarc t.. Ventri cular system is symmet nicole withou t eviden ce of midlin e shift or mass effect . Grossl y normal flow voids within the intrac ranial portio ns of the verteb robasi lar system and computer science intern al caroti d arteri es in their proxim al portio ns. No gross abnorm ality within the brains tem or line service person ior fossa. Aragon/w louisa differ entiat ion is within normal limits .. No white matter lesion s. .. Midlin e struct ures are within normal limits . Normal thickn ess to the corpus callos um.. Simila r near comple te opacif icatio n of the right maxill abbey sinus may be due to mucosa l thicke jeanine versus large retent ion cyst. IMPRES CHRIS: 1. No intrac ranial mass or pathol ogic contra st enhanc ement. 2. No acute infarc t. No white matter lesion s. Referr ed By: VON Kim Electr onical ly Signed By: Vernon Estrada MD on 9:52 PM Interp reted By: Vernon Estrada MD, 9:40 PM [email or web address] [facility] (Central Scheduling) [address] [place], [address], 11/23/2023 14:00:01 12/26/[address], sinus es, w/o contr ast [facility] [place] [address] [facility] [place] [address] EXAMIN ATION: Head CT withou t contra st 12/24/19 24 INDICA TION:S easona l allerg ic rhinit is TECHNI QUE: Axial CT images of the parana henry sinuse s were acquir ed withou t intrav enous contra st. Sagitt al hernandez l reform ats were constr ucted. Radiat ion dose reduct ion techni ques were used. COMPAR HARMONY: Head CT FINDIN GS:The left fronta l sinus is atreti c. The right fronta l, bilate ral ethmoi d, bilate ral spheno id and left maxill abbey sinuse s are clear. There is a 2.3 cm cystic lesion within the right maxill abbey sinus, unchan ged. No air-fl uid levels . No sinus expans ion, volume loss, sclero sis or dehisc ence. No periap ical lucenc ies within the maxill a or mandib le. The sella is within normal limits for size. The tempor omandi bular joint spaces are unrema rkable . No acute osseou s abnorm ality. The mastoi d air cells and middle ear caviti es are clear. The orbits and globes are unrema rkable . Partia lly visual ized intrac ranial conten ts are unrema rkable . The oral cavity and tongue are unrema rkable . The nasoph arynx oropha rynx and hypoph arynx are unrema rkable . No other discre te facial mass, cyst or acute inflam matory change s. IMPRES CHRIS: 1. 2.3 cm retent ion mucous cyst within the inferi or right maxill abbey sinus, unchan ged compar ed to the prior CT of 024. 2. No mucosa l thicke jeanine, air-fl uid levels or bone destru ction. Referr ed By: CASEY Cunningham onical ly Signed By: Salvador Giordano MD on 12/26/19 8:50 AM Interp reted By: Salvador Giordano MD, 12/26/19 8:47 AM [email or web address] [facility] (Imaging & Mammogram) [address] [place], [address], 12/26/2023 14:25:51 07/25/[address] cerv spine wo con [facility] [address] [facility] [place] [address] [facility] [place] [address] [facility] [address] [place] [address] EXAMIN ATION: CT Cervic al Spine withou t contra st. ACCESS ION: [id number] EXAM DATE/T LEAH: 025 5:04 PM REASON FOR EXAM: neck pain, trauma COMPAR HARMONY: None TECHNI QUE: Axial images obtain ed from the level of skull base throug h the cervic al spine withou t contra st using low-do se CT techni que. Sagitt al and hernandez l recons tructi on. A dose loweri ng techni que was used for this proced ure, which may includ e, but is not limite d to, dose reduct ion techni que, automa layne exposu re contro l, iterat fara recons tructi on, ALARA (As Low As Reason ably Achiev able), or Image Gently techni ques. FINDIN GS: There is a normal cranio verteb ral juncti on. Cervic al verteb ral bodies are in good alignm ent with straig htenin g of the normal cervic al lordos is. Cervic al verteb ral body height s are well-m aintai ewst. There is no acute prever tebral soft tissue swelli ng. Normal relati onship betwee n the anteri or arch of C1 and the odonto id with some chroni c degene rative change . There is no eviden ce of acute cervic al spine fractu re or disloc ation. Chroni c degene rative disc diseas e from C5 to C7. No signif icant acute parasp inous soft tissue abnorm ality. =====I MPRESS ION:== === 1. No eviden ce of acute cervic al spine fractu re or disloc ation. ====== ====== ====== === Ordere d By: AKSHAT Rapp LOVE Electr onical ly Signed By: Jairo feliz MD on 5:57 PM Interp reted By: Jairo feliz MD, 5:55 PM [email or web address] [facility] [address] [facility], [place], [address], 07/30/2024 13:24:01 07/25/[address], head, w/o contr ast [facility] [place] [address] [facility] [place] [address] [facility] [place] [address] EXAMIN ATION: CT of the head withou t contra st ACCESS ION: [id number] EXAM DATE/T LEAH: 5:04 PM REASON FOR EXAM: head injury , persis tent MURILLO COMPAR HARMONY: None TECHNI QUE: Noncon trast CT examin ation of the head was perfor med with axial images obtain ed. A dose loweri ng techni que was used for this proced ure, which may includ e, but is not limite d to, dose reduct ion techni que, automa layne exposu re contro l, iterat fara recons tructi on, ALARA (As Low As Reason ably Achiev able), or Image Gently techni ques. FINDIN GS: There is a normal cranio verteb ral juncti on. Ventri cles are normal in size morpho logy. Extra- axial CSF spaces are normal . No eviden ce of acute intrac ranial hemorr darryn. There is no eviden ce of a focal intrac ranial mass lesion . No abnorm al extra- axial fluid collec tion. There is no eviden ce of acute region al edema, mass effect or midlin e shift. The sella and CP angle region s are unrema rkable . Mastoi d air cells are clear bilate rally. Parana henry sinuse s are clear. No eviden ce of acute depres sed skull fractu re. =====I MPRESS ION:== === 1. No acute intrac ranial abnorm ality. ====== ====== ====== === Ordere d By: AKSHAT Rapp LOVE Electr onical ly Signed By: Jairo feliz MD on 025 5:59 PM Interp reted By: Jairo feliz MD, 025 5:58 [email or web address], [address], 07/30/2024 13:24:02 Result Notes None recorded. Problems Name Problem SNOMED Code Status Onset Date Resolution Date Notes Provider Name and Address Organization Details Recorded Time Hypothyr oidism 24345367 Active 2018 MYRON Molina 9 11:07:42 Miscarri age 07627585 Completed 201801/20/2019 Miscarria ge s/p D&C 2005 MYRON Molina 9 22:22:59 Morbid obesity 956848771 Active 2018 Jt Cobb null, [place] - [facility] 9 22:27:44 Cervical radiculo oscar 84535996 Active 2021 Reagan Sheld[place] [facility] 2 15:43:24 Exocrine pancreat ic insuffic iency 86312117 Active 2021 Reagan [place]ld[place] [facility] 2 17:36:52 Acute left otitis media 625366568 Active 2021 Regaan Sheldon [place] [facility] 2 11:58:58 Acute sinusiti s 39901695 Active 2021 Reagan Sheld[place] [facility] 2 11:58:59 Allergic rhinitis 72663797 Active 2022 Reagan Sheldon null, [place] [facility] 3 17:56:41 Notes:Some problems listed i n Document: #[id number] could not be added to this patient's chart. Please review this document and add these problems to the patient's chart manually as needed. Problem Notes None recorded. Procedures Surgical History Date Name Laterality Status Provider Name and Address Organization Details Recorded Time 2 Joint Injection completed Marcin Murry [facility] 11/18/2021 13:08:31 1 Incision & Drainage completed Marcin Murry [place] [facility] 11/12/2020 12:33:30 Imaging Results Imaging Date Name Status LastModified by Organiz ation Details LastModified Time 05/01/2023 XR, hand completed [id number] [place] [address], [address], 05/07/2023 14:28:38 10/02/2023 MAMMO, screening, tomosynthesis, bilateral completed [id number] [place] [address], [address], 10/10/2023 09:13:15 10/11/2023 CT, head, w/o contrast completed [id number] (Imaging & Mammogram) [address] [place], [address], 10/29/2023 09:44:57 11/17/2023 XR, cervical spine, 2 or 3 view completed [email or web address] [facility] [address] [place], [address], 11/23/2023 14:00:01 11/20/2023 MRI, brain, w/wo contrast completed [email or web address] [facility] (Central Scheduling) [address] [place], [address], 11/23/2023 14:00:01 12/26/2023 CT, sinuses, w/o contrast completed [address] (Imaging & Mammogram) [address] [place], [address], 12/26/2023 14:25:51 07/25/2024 CT cerv spine wo con completed [address], [address], 07/30/2024 13:24:01 07/25/2024 CT, head, w/o contrast completed [address], [address], 07/30/2024 13:24:02 Procedure Notes None recorded. Medical Equipment None Reported. Allergies Allergen ID Allergen Name Allergen Category Reaction Reaction Severity Criticality Documentation Date Start Date Code Code System Note Provider Name and Address Organization Details Recorded Time 986186 Augmentin medicatio n Not available Not available Not available 09/09/2018 58387 2 RxNorm Not Available Not Available Not Available 051629 Dilaudid medicatio n Not available Not available Not available 09/09/2018 74516 3 RxNorm Not Available Not Available Not Available Medications Name Sig Start Date Stop Date Status Note LastModified by Organization Details LastModified Time cyclobenzap rine 10 mg tablet TAKE 1 TABLET BY MOUTH THREE TIMES DAILY NEEDED 03/31 completed Not Available Not Available Not Available medroxyprog esterone 10 mg tablet 01/20 completed Not Available Not Available Not Available doxycycline hyclate 100 mg capsule TAKE 1 CAPSULE BY MOUTH DAILY FOR 10 DAYS 07/25 completed Not Available Not Available Not Available clindamycin HCl 300 mg capsule TAKE 1 CAPSULE BY MOUTH THREE TIMES DAILY FOR 10 DAYS 07/25 completed Not Available Not Available Not Available azithromyci n 250 mg tablet TAKE 2 TABLETS (500 MG) BY ORAL ROUTE ONCE DAILY FOR 1 DAY THEN 1 TABLET (250 MG) BY ORAL ROUTE ONCE DAILY FOR 4 DAYS 09/12 completed Not Available Not Available Not Available ibuprofen 800 mg tablet TAKE 1 TABLET BY MOUTH THREE TIMES DAILY FOR 7 DAYS NEEDED FOR PAIN 07/25 completed Not Available Not Available Not Available benzonatate 200 mg capsule Take 1 capsule 3 times a day by oral route as needed for 7 days. 01/20 completed Not Available Not Available Not Available clarithromy rajesh 500 mg tablet TAKE 1 TABLET BY MOUTH TWICE DAILY FOR 14 DAYS 02/21 completed Not Available Not Available Not Available sucralfate 1 gram tablet TAKE 1 TABLET BY MOUTH FOUR TIMES DAILY BEFORE MEALS AND AT BEDTIME CRUSH TABLET IN A SMALL AMOUNT OF LIQUID BEFORE TAKING 03/31 completed Not Available Not Available Not Available sumatriptan 25 mg tablet TAKE 1 TABLET BY MOUTH AT ONSET OF MIGRAINE. MAY REPEAT IN 2 HOURS IF NEEDED 07/25 completed Not Available Not Available Not Available metronidazo le 500 mg tablet TAKE 1 TABLET BY MOUTH TWICE DAILY FOR 14 DAYS 02/21 completed Not Available Not Available Not Available sulfamethox azole 800 mg-trimetho prim 160 mg tablet TAKE 1 TABLET BY MOUTH TWICE DAILY FOR 10 DAYS 03/31 completed Not Available Not Available Not Available peg-electro lyte solution 420 gram oral solution TAKE DIRECTED BY OFFICE 07/25 completed Not Available Not Available Not Available omeprazole 40 mg capsule,del ayed release TAKE 1 CAPSULE BY MOUTH EVERY DAY active Not Available Not Available No t Available doxycycline monohydrate 100 mg tablet Take 1 tablet twice a day by oral route for 10 days. 01/20 completed Not Available Not Available Not Available acetaminoph en 500 mg tablet TAKE 2 TABLETS BY MOUTH THREE TIMES DAILY NEEDED FOR PAIN FOR 7 DAYS 07/25 completed Not Available Not Available Not Available levothyroxi ne 25 mcg tablet 01/20 completed Not Available Not Available Not Available levothyroxi ne 75 mcg tablet TAKE 1 TABLET BY MOUTH DAILY 03/31 completed Not Available Not Available Not Available meloxicam 7.5 mg tablet TAKE 1 TABLET BY MOUTH EVERY DAY NEEDED 07/25 completed Not Available Not Available Not Available levothyroxi ne 100 mcg tablet TAKE 1 TABLET BY MOUTH DAILY active Not Available Not Available No t Available amoxicillin 875 mg tablet Take 1 tablet every 12 hours by oral route as directed for 5 days. 09/12 completed Not Available Not Available Not Available methocarbam ol 750 mg tablet TAKE 2 TABLETS BY MOUTH THREE TIMES DAILY 07/25 completed Not Available Not Available Not Available triamcinolo ne acetonide 40 mg/mL suspension for injection Take 1 mL by injection route. 02/21 completed Not Available Not Available Not Available pantoprazol e 40 mg tablet,samantha yed release TAKE 1 TABLET BY MOUTH TWICE DAILY 02/21 completed Not Available Not Available Not Available triamcinolo ne acetonide 0.1 % topical ointment APPLY THIN LAYER TOPICALLY TO THE AFFECTED AREA TWICE DAILY 03/31 completed Not Available Not Available Not Available promethazin e 25 mg tablet TAKE 1/2 TABLET BY MOUTH EVERY 6 HOURS NEEDED FOR NAUSEA 10/08 completed Not Available Not Available Not Available ursodiol 300 mg capsule 03/31 completed Not Available Not Available Not Available omeprazole 20 mg capsule,del ayed release 03/31 completed Not Available Not Available Not Available Euthyrox 50 mcg tablet TAKE 1 TABLET BY MOUTH ONCE DAILY 03/31 completed Not Available Not Available Not Available montelukast 10 mg tablet TAKE 1 TABLET BY MOUTH EVERY DAY DIRECTED active Not Available Not Available No t Available Cheratussin AC 10 mg-100 mg/5 mL oral liquid Take 10 mL every day by oral route at bedtime for 7 days. 01/20 completed Not Available Not Available Not Available scopolamine 1 mg over 3 days transdermal patch APPLY ONE PATCH BEHIND THE EAR ON THE NIGHT BEFORE SURGERY 03/31 completed Not Available Not Available Not Available albuterol sulfate HFA 90 mcg/actuati on aerosol inhaler INHALE 2 PUFFS BY MOUTH EVERY 4 HOURS NEEDED active Not Available Not Available No t Available ondansetron 4 mg disintegrat ing tablet DISSOLVE ONE TABLET ON TONGUE EVERY 4 HOURS NEEDED FORNAUSEA AND VOMITING 03/31 completed Not Available Not Available Not Available fluticasone propionate 50 mcg/actuati on nasal spray,suspe nsion USE 1-2 SPRAYS IN EACH NOSTRIL DAILY FOLLOWING NASAL IRRIGATIO N active Not Available Not Available No t Available doxycycline hyclate 100 mg tablet TAKE 1 TABLET BY MOUTH TWICE DAILY FOR 5 DAYS DIRECTED 10/08 completed Not Available Not Available Not Available oxycodone 5 mg tablet TAKE 1 TO 2 TABLETS BY MOUTH EVERY 4 HOURS NEEDED FOR PAIN. MAX OF 6 TABLET IN 24 HOURS 03/31 completed Not Available Not Available Not Available Saline Nasal 0.65 % spray aerosol Take 1 spray twice a day by nasal route as directed for 15 days. 07/25 completed Not Available Not Available Not Available FeroSul 325 mg (65 mg iron) tablet TAKE 2 TABLETS BY MOUTH THREE TIMES DAILY WITH MEALS 07/25 completed Not Available Not Available Not Available Neilmed Sinus Rinse Complete with packet Irrigate each nasal passage with distilled water once to twice daily as directed 07/25 completed Not Available Not Available Not Available Zenpep 40,000 unit-126,00 0 unit-168,00 0 unit capsule,del ayed release Take 2 capsules 3 times a day by oral route for 31 days. 2024 active Not Available Not Available Not Avai lable ID NOW COVID-19 Test Kit TEST DIRECTED 03/31 completed Not Available Not Available Not Available Vitals Date Recorded Body height Body mass index (BMI) Body weight Oxygen saturation Oxygen saturation in Arterial blood by Pulse oximetry Heart rate Body temperature Systolic blood pressure Diastolic blood pressure Provider Name and Address Organization Details Last Updated DateTime 3 161.29 cm 31.1 kg/m2 29434.5 9 g 99 % 99 % 85 /min 98.3 [degF] 106 mm[Hg] 68 mm[Hg] Maryann Ureña MA [facility] 3 16:28:11 Date Recorded Body height Body mass index (BMI) Body weight Body temperature Oxygen saturation Oxygen saturation in Arterial blood by Pulse oximetry Heart rate Systolic blood pressure Diastolic blood pressure Provider Name and Address Organization Details Last Updated DateTime 4 161.29 cm 32.1 kg/m2 97326.7 g 98.7 [degF] 97 % 97 % 74 /min 107 mm[Hg] 70 mm[Hg] Leslie Navarro MA [facility] 4 14:03:46 Date Recorded Body height Body mass index (BMI) Body weight Heart rate Oxygen saturation Oxygen saturation in Arterial blood by Pulse oximetry Body temperature Systolic blood pressure Diastolic blood pressure Provider Name and Address Organization Details Last Updated DateTime 4 161.29 cm 32.7 kg/m2 09334.8 7 g 62 /min 97 % 97 % 97.8 [degF] 111 mm[Hg] 72 mm[Hg] Maryann Ureña MA [facility] 4 11:03:12 Date Recorded Body height Body mass index (BMI) Body weight Body temperature Heart rate Oxygen saturation Oxygen saturation in Arterial blood by Pulse oximetry Systolic blood pressure Diastolic blood pressure Provider Name and Address Organization Details Last Updated DateTime 4 161.29 cm 32.1 kg/m2 92950.3 5 g 97.3 [degF] 52 /min 98 % 98 % 102 mm[Hg] 67 mm[Hg] Tyler Berg MA [facility] 4 09:15:10 Date Recorded Body height Body mass index (BMI) Body weight Body temperature Oxygen saturation Oxygen saturation in Arterial blood by Pulse oximetry Heart rate Systolic blood pressure Diastolic blood pressure Provider Name and Address Organization Details Last Updated DateTime 5 161.29 cm 35.5 kg/m2 50878.7 g 98.6 [degF] 98 % 98 % 63 /min 101 mm[Hg] 68 mm[Hg] Xavi Irving MA [facility] 5 16:55:50 Social History Question Answer Notes LastModified by Organizat ion Details LastModified Time Tobacco Smoking Status Former Smoker -Pt quit smoking in 09/2009. -TShope,CM Mohsen Wilson, INVESTOR RELATIONS DIRECTOR null, [place] - [facility] 11/12/2020 11:47:00 What Is Your Level Of Alcohol Consumption? None Information not available 11/12/2020 Do You Or Have You Ever Used E-cigarettes Or Vape? Never Used Electronic Cigarettes Information not available 07/19/2020 What Was The Date Of Your Most Recent Tobacco Screening? 07/25/2024 aphillipsma Information not available 07/25/2024 Do You Or Have You Ever Used Smokeless Tobacco? Never Used Smokeless Tobacco Information not available 07/19/2020 Do You Use Any Illicit Or Recreational Drugs? No Information not available 11/12/2020 Has Tobacco Cessation Counseling Been Provided? Yes Information not available 03/05/2023 On What Date Was Tobacco Cessation Counseling Provided? 10/22/2023 Information not available 10/22/2023 Do You Or Have You Ever Used Any Other Forms Of Tobacco Or Nicotine? No Information not available 11/12/2020 Sex: Unknown Functional Status None recorded. Mental Status None recorded. Family History Nothing Reported. Medical History No medical history recorded. Gynecological HistoryNo gynecological history recorded. Obstetrics History GPAL:G 0 P 0 0 0 0 Immunizations Vaccine Type Date Status Note Provider Nam e and Address Organization Details Recorded Time Tdap 1 completed Gary Oconnell MD Attn: [address] [place], [address], [facility] 07/25/2024 17:00:48 influenza, unspecified formulation 1 completed Gary Oconnell MD Attn: [address] [place], [address], [facility] 07/25/2024 17:00:48 Tdap 3 completed Bony Valverde MD Attn: [address] [place], [address], [facility] 09/28/2022 15:45:48 Past Encounters Encounter ID Performer Location Encounter Start Date Encounter Closed Date Diagnosis/Indication Diagnosis SNOMED-CT Code Diagnosis ICD10 Code Diagnosis Note [id number] RAPHAEL [facility] [address] [place] [address] 09/09/2018 16:23:32 09/10/2018 10:01:04 Acute bronchitis 95952283 J20.9 [place] im per ma per vo. hydration and rest encouraged . fu c pcp within 2 weeks. report to ed if s/s worsen (i.e. CP, MIRANDA, SOB and the like) Acute sinusitis 69737426 J01.90 [id number] MD Santa Fishman [address] [facility] [address] [place] [address] 01/20/2019 10:43:12 01/21/2019 12:49:35 Morbid obesity 437338548 E66.01 - reports recent blood work done by OB-mobile marketing manager, discussed signing medical release to gather records and redraw if not current- discussed importance of decreasing caloric intake, and increasing exercise- discussed that weight could be important factor in difficulti es with getting in addition to increasing risk of complicati ons if she does become - will continue to address at future visits Wheezing 33414962 R06.2 - patient reports wheezing worse at night, ddx includes JORGE as she is morbidly obese although she denies daytime sleepiness or HTN. No wheezing on exam. No history of COPD/Asthm a- discussed treating seasonal allergies with flonase and histamine kayla, patient would like to purchase OTC meds- will follow up in 1-2 months Mosquito bite 718197412 W57.XXXA - discussed use of OTC hydrocorti sone cream that she has at home for itching- no active signs of infection/ bleeding/d rainage, will continue to monitor- discussed alarm symptoms and return precaution s including fever, chills, spreading erythema around wound [id number] MD Santa Fishman [address] [facility] [address] [place] [address] 05/26/2019 10:08:39 05/29/2019 09:36:03 Viral gastroenteritis 923375308 A08.4 Watery diarrhea x 3d, no alarm symptoms noted. Has not taken any meds for relief. Food/water intake has been normal with no loss of appetite. Pt is likely over the worst of the illness. -supportiv e care-antic ipatory guidance provide; return to clinic/ER if alarm sx arise Headache 01853162 R51 Headache noted upon awakening this morning. Pt experience s sporadic headaches at baseline. Did not take any medication bc was concerned that it was related to the diarrhea. Is staying well hydrated so not concerned for headache 2/2 to dehydratio n. -continue to stay hydrated-i buprofen 400mg PRN (q4h) if sx persist/re appear [id number] MD Santa Dominguez [address] [address] 07/19/2020 11:58:06 07/20/2020 07:02:17 Streptococcal sore throat 26810035 J02.0 Strep throat diagnosed in the UC 2 days ago w/o improvemen t on azithromyc in, still has lots of pain w/o concern for airway involvemen t - tolerating PO well, no dyspnea. Also has B/L ear fullness. DDx bacterial strep pharyngiti s vs viral pharyngiti s with bacterial OM.-Given symptoms and limited evaluation over the phone, will empiricall y treat with clindamyci n-Advised pt to continue azithromyc in-F/u and ER precaution s advised-Wo rk note sent through patient portal [id number] Keri flores, MD [facility] [address] [address] 11/12/2020 11:36:40 11/15/2020 11:50:43 Abscess of chest wall 99049408 L02.213 Simple, moderate severity. Seen in ED on 11/06, started on Bactrim 10 days without I&D and worsening abscess formation, symptoms. No systemic symptoms. - I&D performed (see procedure) - Send culture - Dressing supplies provided with care instructio ns provided - Continue Bactrim for complete 10 days - ED/RTC precaution s for fever, worsening pain, redness [id number] MD Santa Waddell [address] [address] 11/18/2020 13:19:05 11/19/2020 07:26:18 Abscess of chest wall 30906421 L02.213 S/p I&D performed 11/12. Culture NGTD. Completed course of bactrim. Healing well with no signs of residual infection or abscess - Continue to monitor; applicatio n of Vaseline and bandaid to area - Contact dermatitis from tape applicatio n; triamcinol one to affected area; adverse drug effects discussed - ED/RTC precaution s for recurrence of symptoms [id number] Alberto La MD [facility] [address] [facility] [address] [place] [address] 03/31/2021 16:04:53 04/01/2021 12:47:36 Body mass index 30+ - obesity 357752851 Z68.35 Shoulder pain 52793227 M 25.519 Acute, unresolved . Likely 2/2 to muscle imbalance in neck/shoul mariaa muscle group based on history and exam. Will treat conservati vely.- Encouraged ice/heat therapies- Neck and shoulder exercises provided- Short course of NSAIDs with respect to ulcer hx- Schedule for OMT- Recommende d massage- Recommende d supportive pillow- F/U if non-improv ing, consider PT Neck pain 72057690 M54.2 Closed fra cture proximal phalanx, toe 140905881 S92.911A Acute 2 weeks, protected with walking shoe and wrapping following ED visit with resolving pain. No signs of infection. Recommende d no more than 2 more weeks of walking shoe before transition to closed toe shoe. Resume activity as tolerated. [id number] ANDI LAKE DO [facility] [address] [facility] [address] [place] [address] 04/22/2021 16:19:11 04/25/2021 12:52:00 Somatic dysfunction of thoracic region 722607969 M99.02 Muscle energy technique performed on T2 with improved mobility of segment and patient pain. Counterstr ain technique performed tenderpoin t of L upper trapezius with subjective improvemen t of pain from 8/10 to no pain. Encouraged hydration and consider follow-up eval/treat ment in 2-3 weeks. Cervical s omatic dysfunction 178736804 M99.01 Muscle energy technique performed on OA, AA and C4 with improved mobility of segments and patient pain. Encouraged hydration and consider follow-up eval/treat ment in 2-3 weeks. Somatic dy sfunction of rib 879852435 M99.08 Muscle energy technique performed on left ribs with improved movement with breathing. Encouraged hydration and consider follow-up eval/treat ment in 2-3 weeks. [id number] Alberto La MD [place] [address] [address] 09/22/2021 12:19:20 09/23/2021 07:44:14 Acute sinusitis 21469325 J01.90 Acute, 4 days. Likely related to allergies, seasonal weather changes, viral infection. Less likely bacterial infection. Will treat conservati vely with nasal irrigation and regular nasal corticoste roid treatment to reduce inflammati on. Other supportive care measures discussed. F/U in a week if non-improv ing. [id number] Sekou Luis Fernando [place] [address] [address] 11/18/2021 11:22:10 11/22/2021 13:31:33 Subacromial bursitis of left shoulder 8645231600 794041 M75.52 TTP, pain with active and passive ROM. Likely aggravated and inflammate d from subscap tendinitis . Consented and performed subacromia l bursa steroid and lidocaine injection with relief of pain immediatel y. Subscapula ris tendinitis 574879509 M67.819 Subacute, non-improv ing with conservati ve therapy. Discussed additional care with Tylenol/NS AIDs, exercises. Will send for formal PT evaluation and treatment. Cervical radiculopathy 02511420 M54.12 Positive Spurlings on left with concern for cervical DDD with spinal stenosis. With weakness, radicular symptoms, will order MRI. May likely need interventi onal pain management and/or NS depending on severity. [id number] Brittney Laughlin MD [place] [address] [address] 02/21/2022 17:04:12 02/24/2022 12:33:21 Cervical radiculopathy 74257187 M54.12 MRI C-spine w/o contrast (01/06/22) w/ multilevel degenerati ve changes & foraminal narrowing in the cervical spine. Continues to have c-spine tenderness & radicular symptoms, doesn't desire surgical interventi on, pain controlled w/ conservati ve measures.- Hold off on Pain Mgmt & NSGY referrals at this time.- Continue Physical Therapy as scheduled. - Sent refill Rx for Meloxicam 7.5mg PO daily.- F/u in 3mo, sooner PRN. Obesity 691138555 E66.9 [id number] JOSE LEE MD [place] [address] [address] 05/26/2022 16:10:12 06/07/2022 15:54:36 Acute sinusitis 10174794 J01.90 - Increase to Flonase BID for acute infection. - Recommend nasal irrigation daily. Acute left otitis media 427516439 H66.92 New acute left otitis media; symptoms ongoing since this AM. Tmax 99F. Left TM erythemato us on examinatio n.- Sent Rx for Amoxicilli n 875mg PO q12h x 5d.- Tylenol/Mo anmol PRN for pain/disco mfort/feve r.- Work note: return to work on 05/29/22.- F/u in 3mo, sooner PRN. [id number] Bony Valverde MD [place] [address] [address] 09/12/2022 16:30:42 09/24/2022 13:24:17 Allergic rhinitis 45918643 J30.9 Continue to have allergy symptoms: rhinorrhea , sinus headaches. Insufficie nt improvemen t w/ Claritin, Benadryl, Flonase.- Sent Rx for Montelukas t 10mg PO daily.- Consider Azelastine nasal spray.- F/u in 3mo, sooner PRN. Active or passive immunization 641246359 Z23 Obesity 488472824 E66.9 [id number] Keri flores MD [place] [address] [address] 12/04/2022 09:02:29 12/06/2022 09:23:33 Swelling of lower leg 671920183 R22.41 R>L. Present for 6 years. Only occurs when standing for a prolonged period of time. Resolved by the morning. No pain, redness, SOB, chest pain, or tachycardi a. No hx of trauma or surgery to the RLE.- Low concern for blood clot given nature and duration of symptoms- Likely venous stasis- To better rule out blood clot, will order US- ER precaution s given- Wear compressio n socks when standing for long periods of time- Follow up in one month [id number] MD Santa Fishman [address] [address] 01/05/2023 09:43:06 01/12/2023 12:28:14 Migraine without aura 68291114 G43.009 Chronic headache every couple of days: less than 15 or more headache days per month for at least 3 month. Short duration:l asts 5 minutes to 10 minutesMig aguila is top on ddx: present daily for more than 3 months, A/P:- No red flag symptoms or focal neurologic deficits on exam. No further lab testing/im aging indicated. - Vitals wnl, not concerning for meningitis or other infectious etiology- Advised patient to log symptoms in headache diary. Avoid triggers.- Reviewed medication s, no headache-p rovoking medication s identified - does not use caffeine, tobacco- Abortive therapy with Tylenol/Mo rtin (mild/mode rate) will need to be careful with hx of stomach ulcers but does take ppx PPI- Sumatripta n 25 mg PO/ Counseled on rebound and conversion to chronic daily headache (transform ed migraine). Advised pt to use triptan early in attack. [id number] MD Santa Fishman [address] [address] 03/05/2023 16:15:30 03/09/2023 22:01:46 Acute sinusitis 68282473 J01.90 Acute not resolved in 10 days. Allergic to amoxicilli n. will try doxycyclin e and nasal spray Allergic rhinitis 498707 04 J30.9 Chronic well controlled on flonase Screening for malignant neoplasm of colon 239756685 Z12.11 Asx. No family hx documented [id number] Henry Mixon MD [facility] [address] [address] 10/09/2023 13:50:31 10/10/2023 13:09:04 Unsteady when standing 979930462 R26.81 vitamin deficienci es vs mass effect brain vs MS vs migraines ( says has worsening headaches? ?)occurred after she had her legs buckle without LOC or preceding sx's.she has what sounds like lesions occurring in arm and leg in different areas in time. no parathesia s in lower extremitie s and patellar and achilles reflex intact.-wi ll get advanced imaging and the below labs-under stands when to go to ED if ever concerns of stroke (no red flags today) Paresthesi a of upper limb 93757031 R20.2 MRI in 2021 showed Greatest degree of canal stenosis at C5-C6 with partial effacement of the thecal sac and mass effect upon the cord. The numbness is through whole LUE which makes me think the lesion is at level of brain or c spine and not peripheral nerve. With the spasms, i will also rule out electrolyt e derangemen ts.-will get MRI to assess if worsening stenosis and consider neurosurg eval [id number] Harpreet Mariscal MD [place] [address] [address] 10/22/2023 10:54:34 10/25/2023 11:40:54 Unsteady when standing 335504486 R26.81 MS vs migraines ( says has worsening headaches? ?) vs med side effectoccu rred after she had her legs buckle without LOC or preceding sx's.she has what sounds like lesions occurring in arm and leg in different areas in time. no parathesia s in lower extremitie s and patellar and achilles reflex intact.-CM P, vitamins and CBC WNL-Ct head negative-h as MRI brain ordered.-m edications reviewed.- understand s when to go to ED if ever concerns of stroke (no red flags today) Paresthesi a of upper limb 06690064 R20.2 MRI in 2021 showed Greatest degree of canal stenosis at C5-C6 with partialeff acement of the thecal sac and mass effect upon the cord. The numbness is through whole LUE which makes me think the lesion is at level of brain or c spine and not peripheral nerve. With the spasms, i will also rule out electrolyt e derangemen t's.-will get spine xray to assess if worsening stenosis and consider neurosurg eval [id number] JOSE LEE MD [facility] [address] [facility] [address] [place] [address] 12/03/2023 09:05:02 12/04/2023 11:33:02 Paresthesia of upper limb 22456697 R20.2 Chronic. Worsening and increasing in frequency over the past 3 months. Occasional left arm numbness.- MRI in 2021 showed Greatest degree of canal stenosis at C5-C6 with partial effacement of the thecal sac and mass effect upon the cord- Xray of C spine unremarkab le. CT and MRI of brain unremarkab le as well- Previously ordered MRI of C spine; however, was denied- PT ordered- F/u in 6 weeks after completion of PT, consider MRI of C spine at that visit if persistenc e of sxs. Consider neurology vs neurosurge ry referral, pending imaging. Consider EEG. Headache 42395534 R51.9 Chronic. Controlled . Hx of migraines. Pt reports not having a migraine for the last 4 weeks. When she does have a migraine, it is associated with photophobi a and occasional phonophobi a. Denies N/V with the migraines. Has been having B/L MURILLO that would sometimes last the whole day. Utilizes tylenol and ibuprofen PRN, which alleviates the sxs, as well as, naps.- Previously been on sumitripta n in 2022, w/o any complicati ons with the medication s. Offered refill to re-trial; however, pt declined- Recent headaches seem more like tension headaches. Pt states that her mother is currently living with her until next Sunday, in which, has been adding more stress- D/w pt to decrease stress and stretching / messaging neck- D/w pt conservati ve management - Will continue to monitor Dizziness 768005986 R42 Chronic. Starting in 2010. Has been worsening and increased frequency over the past 3 months. Occasional left sided arm numbness. Denies LOC, tinnitus, or hearing loss. These episodes happen a couple of times throughout the week; however, seems unrelated to any specific activity.- PE today with unremarkab le exam on B/L upper extremitie s. Normal neck and back exam. Spurlings test negative- DDx: Migraines vs medication side effects- Imaging has been unremarkab le, no intracrani al involvemen t- Labs have been unremarkab le- Medication s were reviewed at previous appointmen ts- MURILLO plan as below- Left sided arm paresthesi as plan as below- Pt has ENT appointmen t on 12/14/2023 - ED precaution s discussed Obesity 654564053 E66.8 - BMI 32.1 Health Concerns Section Related Observation LastModified by Organization Detai ls LastModified Time None Recorded Concern Status LastModified by Organization Details LastModified Time None Recorded Advance Directives Directive None Recorded Payers Encounter Date Sequence Insurance Name Policy Number Policy Martinez Covered Member ID Martinez Member ID Guarantor Name 03/05/2023 1 [employer] [place] ([place] [id number] Peterson Gil [id number] Orlando Farrhl 10/09/2023 1 [employer] [place] [id number] Peterson Gil [id number] Orlando Farrhl 10/22/2023 1 [employer] [place] [id number] Peterson Gil [id number] Orlando Gil 12/03/2023 1 [employer] [place] [id number] Peterson Gil [id number] Orlando Farrhl Notes Date Note Type Note Provider Name and Address Organization Details Recorded Time 03/05/2023 text/html Sinusitis/Allerg yRep orted bypatient.Location:m axillary Associated Symptoms:no fever;nasal discharge from both nostrils;headache;fa cial pain bilaterally;nasal discharge;nasal passage blockage bilaterally;nasal itching Onset/Timing:abrupt onset (9 days ago) Quality:no itching;aching;conge sted;throbbing Duration:infrequent Severity:limits daily activities;frequent breathing through the mouth;worsened snoring Context:no recent sick contacts;worse around dust;worse with environmental exposure Alleviating factors:nothing gives relief; tried OTC steroids and antihistamines. Keri Beard MD Attn: [address] [place], [address], [facility] [place] 03/05/2023 17:31:19 10/09/2023 text/html 48 year old with multiple week hx of right arm numbness with spasms in left arm. says it randomly occurs. does not change with sleep. no chest pain or SOB. she says it is happening more frequently than usual now and said that she seems like she is out of it sometimes. She accidentally took her pregablin this weekend but has not done that before. denies etoh, nicotine or recreational drugs. no known fam hx of MS. she also had an episode of where he legs gave out this past wednesday 10/04. She said she felt no preceded sx's. no palpitations or lightheadedness. no dizziness. no pain either. has not happened before. no trauma to area and did not have LOC. no surgeries on knees. Also has increasing migraines. no new medications. Henry Mixon MD Attn: [address] [place], [address], [facility] 10/10/2023 10:44:21 10/22/2023 text/html 48 year old with multiple week hx of right arm numbness with spasms in left arm. says it randomly occurs. does not change with sleep. no chest pain or SOB. she says it is happening more frequently than usual now and said that she seems like she is out of it sometimes. She says she got head ct done but feels like sx's are worsening. says she is getting more and more foggy she also had an episode of where he legs gave out 10/04. She said she felt no preceded sx's. no palpitations or lightheadedness. no dizziness. no pain either. has not happened before. no trauma to area and did not have LOC. no surgeries on knees. Harpreet Mariscal MD Attn: [address] [place], [address], [facility] 10/22/2023 12:39:02 12/03/2023 text/html 48 yo; PMHx of hypothyroidism and migraines; presenting for f/u on MRI. JOSE LEE MD Attn: [address] [facility], [place], [address], [facility] 12/04/2023 09:42:41 OBGyn Episode No OBEpisode recorded.
[2024-08-03 08:43] VITALS: BP 123/49; PULSE 99; RESP 18; TEMP 37.3; O2SAT 99
--- NOTE | 2024-08-03 08:50 | ED_ITS ---
HPI - General Adult General Chief complaint: Upper Respiratory Infection Stated complaint: ear, throat, congestion Time Seen by Provider: 08/03/24 08:50 Source: patient Mode of arrival: ambulatory Limitations: no limitations History of Present Illness HPI narrative: Peterson is a 49-year-old female here with a 1 day history of cough, congestion, ear pressure, headache, chills, body ache, fever to 103. She reports symptoms started last night. 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 She does report a allergy to Augmentin. She states she is not allergic to penicillin and tolerates penicillin well. all systems reviewed and are unremarkable except as noted in HPI and below. Related Data Home Medications ?Medication ?Instructions ?Recorded ?Confirmed ?Last Taken ?Type levothyroxine 75 mcg tablet 75 mcg PO DAILY 07/17/20 09/21/21 Unknown History Vitamin D3 1,000 mcg PO DAILY 07/24/20 09/21/21 Unknown History multivit with minerals-iron 18 1 tablet PO DAILY 07/24/20 09/21/21 Unknown History mg-folic ac 400 mcg-vit K 25 mcg tablet (Adults Multivitamin) thiamine HCl (vitamin B1) 1 tab-cap PO DAILY 07/24/20 09/21/21 Unknown History ferrous sulfate 325 mg (65 mg 650 mg PO TID 09/21/21 09/21/21 Unknown History iron) tablet (FeroSul) Allergies Allergy/AdvReac Type Severity Reaction Status Date / Time hydromorphone (From Dilaudid) Allergy Severe Difficulty Verified 08/03/24 08:39 Breathing amoxicillin (From Augmentin) Allergy Mild Hives Verified 08/03/24 08:39 clavulanic acid (From Allergy Mild Hives Verified 08/03/24 08:39 Augmentin) Review of Systems Review of Systems: CONSTITUTIONAL: Reports fever, chills, or sweats. EYES: Denies visual changes, redness, or discharge. ENT: reports rhinorrhea and congestion. denies sore throat, or otalgia. CARDIOVASCULAR: Denies chest pain, palpitations, or edema. RESPIRATORY: reports cough. denies dyspnea. GASTROINTESTINAL: Denies abdominal pain, nausea, vomiting, or diarrhea. GENITOURINARY: Denies dysuria or hematuria. SKIN: Denies rash or itching. MUSCULOSKELETAL: Denies back pain, joint pain, or myalgia. reports body aches. NEUROLOGIC: reports headache. denies numbness, or weakness. PSYCHIATRIC: Denies anxiety or depression. All other systems reviewed are negative, except as documented in HPI. 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 Please see nursing chart for further information. There is no relevant family history pertinent to the presenting complaint Exam Narrative: GENERAL: This is a well-nourished, well-developed patient, in no apparent distress. HEAD: normocephalic, atraumatic. EYES: Sclera clear/white. Vision is grossly intact. EARS: External ears normal, auditory canals clear and without drainage, TMs + fluid level. Hearing grossly intact. NOSE: External nose normal with no obvious nasal discharge, nares without redness, no rhinorrhea. THROAT: Mucous membranes moist, posterior pharynx erythematous, edematous, and with exudate. NECK: Neck supple, non-tender without lymphadenopathy, masses or thyromegaly. CARDIOVASCULAR: Regular rate and rhythm without murmurs, gallops, or rubs. RESPIRATORY: Clear to auscultation. Breath sounds equal bilaterally. No wheezes, rales, or rhonchi. SKIN: warm, Dry, intact with no suspicious lesions or rash, good texture and turgor. NEURO: awake, alert, and oriented to person, place and time. There were no obvious focal neurologic abnormalities. EXTREMITIES: No joint tenderness, effusion, or edema noted. No calf tenderness. Negative Homans sign bilaterally. Course Course Emergency Course: Patient is aware of diagnosis, understands and agrees to treatment plan. Anticipatory guidance given. Patient agrees to follow-up as directed and is aware of reasons to seek care at the emergency department. Level of Care: Express Care Visit Vital Signs Vital signs: Vital Signs Temperature 37.3 C 08/03/24 08:43 Pulse Rate 99 08/03/24 08:43 Respiratory Rate 18 08/03/24 08:43 Blood Pressure 123/49 L 08/03/24 08:43 Pulse Oximetry 99 08/03/24 08:43 Oxygen Delivery Room Air 08/03/24 08:43 Temperature 37.3 C 08/03/24 08:43 Pulse Rate 99 08/03/24 08:43 Respiratory Rate 18 08/03/24 08:43 Blood Pressure 110/51 L 08/03/24 09:17 Pulse Oximetry 99 08/03/24 08:43 Oxygen Delivery Room Air 08/03/24 08:43 reviewed Medical Decision Making MDM Narrative Medical decision making narrative: Flu, COVID, strep screening as were all negative. Results reviewed with patient. Discussed physical exam findings. Advised supportive measures and signs and symptoms to come to the emergency room. patient is appropriate for outpatient treatment and follow-up. This report may have been done utilizing a voice recognition system. Attempts have been made to correct errors. However, there may be uncorrected grammatical, spelling, and recognition errors present. Vital Signs Vital Signs: Vital Signs Temperature 37.3 C 08/03/24 08:43 Pulse Rate 99 08/03/24 08:43 Respiratory Rate 18 08/03/24 08:43 Blood Pressure 123/49 L 08/03/24 08:43 Pulse Oximetry 99 08/03/24 08:43 Oxygen Delivery Room Air 08/03/24 08:43 Temperature 37.3 C 08/03/24 08:43 Pulse Rate 99 08/03/24 08:43 Respiratory Rate 18 08/03/24 08:43 Blood Pressure 110/51 L 08/03/24 09:17 Pulse Oximetry 99 08/03/24 08:43 Oxygen Delivery Room Air 08/03/24 08:43 Reviewed Lab Data Labs: Lab Results 08/03/24 08/03/24 08/03/24 Range/Units 09:00 09:06 09:07 POC Influenza A Ag Negative Negative (Negative) POC Influenza B Ag Negative Negative (Negative) POC SARS CoV-2 Ag Negative Negative (Negative) POC Grp A Strep Screen Negative Negative (Negative) Discharge Plan Discharge Clinical Impression: Exudative pharyngitis Upper respiratory infection Qualifiers: URI type: unspecified viral URI Qualified Code(s): J06.9 - Acute upper respiratory infection, unspecified Patient Disposition: Home, Self-Care Condition: Stable Instructions: Antibiotic Form, Pharyngitis (ED), Upper Respiratory Infection (DC) Additional Instructions: You were diagnosed with exudative pharyngitis and an upper respiratory infection. You should wear a mask when out of the house until you are fever- free for 24 hours. Avoid going to places where you could spread the infection to people who are immunocompromised. Cover all coughs. Push fluids and eat foods that contain fluids such as applesauce. Rest. Do not share eating or drinking utensils. Use good handwashing techniques. Warm saltwater gargles for sore throat. May use over the counter acetaminophen by mouth as needed/directed for pain. Take medications as prescribed. Your flu, COVID, and strep test were negative. We are sending a strep culture out to the lab. You will be contacted with results of the strep culture in the next 2-3 days. Follow printed instructions. Take medications as prescribed. Follow-up with your primary care provider. Call your Primary Care Doctor today to make a follow-up appointment. Go to the ER for any worsening symptoms or concerns. Patient Language: Hungarian Prescriptions: New azithromycin [Zithromax Z-Long] 250 mg tablet See Rx Instructions .ROUTE .COMPLEX Qty: 6 0RF Rx Instructions: For 250 mg dose pack: take 500 mg today (day 1), then 250 mg for 4 days (days 2-5) benzonatate 200 mg capsule 200 mg PO TID PRN (Reason: cough) Qty: 30 0RF No Action levothyroxine 75 mcg tablet 75 mcg PO DAILY ferrous sulfate [FeroSul] 325 mg (65 mg iron) tablet 650 mg PO TID Adults Multivitamin 18 mg iron-400 mcg-25 mcg Tablet 1 tablet PO DAILY Vitamin D3 1,000 mcg PO DAILY thiamine HCl (vitamin B1) 1 tab-cap PO DAILY acetaminophen 500 mg capsule 500 mg PO Q6H PRN (Reason: pain) Qty: 20 0RF Rx Instructions: can substitute capsules for tablets and vice versa acetaminophen 500 mg tablet 1,000 mg PO TID PRN (Reason: johanny) 7 Days Qty: 42 0RF guaifenesin [Mucinex] 1,200 mg tablet extended release 12hr 1,200 mg PO BID Qty: 30 0RF Follow-up/Referrals: Evan,MD Dale [Primary Care Provider] - Stand Alone Forms: Work/School Release IP Time of Disposition: 09:34
[2024-08-03 09:08] LABS: EDCOVIDSCREEN Negative (Negative)
[2024-08-03 09:09] LABS: EDINFLUASCREEN Negative (Negative); EDINFLUBSCREEN Negative (Negative); EDSTREPNEGPOS1 Negative (Negative)
[2024-08-03 09:17] VITALS: BP 110/51
[2024-08-03 15:16] LABS: EDCOVIDSCREEN Negative (Negative); EDINFLUASCREEN Negative (Negative); EDINFLUBSCREEN Negative (Negative); EDSTREPNEGPOS1 Negative (Negative)
== END 2024-08-03 09:32 | disposition home or self-care (01) ==
PROVIDERS: Emergency Provider Nurse Practitioner; PCP Family Medicine
DX: J06.9 Acute upper respiratory infection, unspecified (principal); J02.9 Acute pharyngitis, unspecified; E03.9 Hypothyroidism, unspecified; Z87.891 Personal history of nicotine dependence; Z20.822 Contact with and (suspected) exposure to COVID-19
CPT/HCPCS: 87081; 87426; 87804; 87880; 99213; G0463

== ENCOUNTER 2024-08-30 10:30 | Outpatient (CLI) | payer OTHER, SELFPAY ==
--- OUTSIDE RECORDS SUMMARY | 2024-08-30 10:36 | XMS_ITS | Encounter Summary ---
Author Organization [facility] Address [address] [place] [address] Care Team Providers Care Menagerie Caretaker Name Role Phone Conversion, History Primary Care Provider Estee elias Encounter Details Date Type Department Care Team (Late st Contact Info) Description 11/30/2002 Outpatient Historical [facility] Miguel Louise MD [address] [facility] [address] [place] [id number] Er, Authorized P NO ADDRESS ON FILE CONTUSION OF FOOT (Primary Dx) Social History Tobacco Use Types Packs/Day Years Used Date Smoking Tobacco: Never Assessed Comments Unknown Sex and Gender Information Value Date Recorded Sex Assigned at Not on file 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
--- OUTSIDE RECORDS SUMMARY | 2024-08-30 10:36 | XMS_ITS | Encounter Summary ---
Author Organization [facility] Address 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
--- OUTSIDE RECORDS SUMMARY | 2024-08-30 10:36 | XMS_ITS | Encounter Summary ---
Author Organization [facility] Address [address] [place] [address] Care Team Providers Care Integrity Assessor Name Role Phone Conversion, History Primary Care Provider Estee elias Encounter Details Date Type Department Care Team (Latest Contact Info) Description 01/27/2007 Outpatient Historical [facility] Aurora Cade MD [address] [facility] [address] [place] [address] Jolly Noguera MD [address] [facility] [id number] [place] [address] Polyp of Corpus Uteri (Primary Dx) Social History Tobacco Use Types Packs/Day Years Used Date Smoking Tobacco: Never Assessed Comments Unknown Sex and Gender Information Value Date Recorded Sex Assigned at Not on file 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 Co de Phone Number INTERFACE SYSTEM Refer [...] MD HEMATOLOGY ORDERABLES Edited Performing Organization Address [facility] Co de Phone Number INTERFACE SYSTEM Refer to clinic/hospital department documented in this encounter Visit Diagnoses Diagnosis Polyp of corpus uteri- Primary documented in this encounter Care Teams Integrity Assessor Relationship Specialty Start Date End Date Conversion, History PCP - General 01/19/07 documented as of this encounter
--- OUTSIDE RECORDS SUMMARY | 2024-08-30 10:36 | XMS_ITS | Clinical Summary ---
Author Organization [facility] Address [address] [place] [id number] Care Team Providers Care Taxi Driver Name Role Phone Neeraj Jenkins MD Primary Care Provider [phone] Allergies Active Allergy Reactions Criticality Noted Date [...] total) by mouth daily. 4 Active Pancrelipase, Ctz-Rtom-Ulvp, (ZENPEP) 24877-563702 units CAPSULE ENTERIC COATED PARTICLES Take 2 tablets by mouth 3 (three) times daily with meals. Active traMADol (ULTRAM) 50 MG tabletIndicatio ns:Acute Pain < 7 Day Supply Take 1 tablet (50 mg total) by mouth every 6 (six) hours as needed for Pain. Indications: Acute Pain < 7 Day Supply 20 tablet 4 Active albuterol sulfate HFA 108 (90 Base) MCG/ACT inhaler Inhale 2 puffs into the lungs every 6 (six) hours as needed. 8 g 5 Active lidocaine (LIDODERM) 5 % Place 1 patch onto the skin daily for 30 days. Remove & Discard patch within 12 hours or as directed by 30 patch 5 08/25/19 25 predniSONE 50 MG tablet Take 1 tablet (50 mg total) by mouth daily for 5 days. 5 tablet 5 08/09/19 25 Encounters Date Type Department Care Team Description 08/04/2024 10:33 AM APPAREL FASHION DESIGNER - 08/04/2024 1:20 PM APPAREL FASHION DESIGNER Emergency [facility] [place] [address] Alfredo Mendoza PA Flu Like Symptoms Discharge Disposition: Home or Self Care (Routine Discharge) 08/04/2024 Travel 07/25/2024 5:42 PM APPAREL FASHION DESIGNER - 07/25/2024 6:31 PM APPAREL FASHION DESIGNER Emergency [facility] [place] [address] Cathie Alvarez PA Head Injury Discharge Disposition: Home or Self Care (Routine Discharge) 07/25/2024 Travel from Last 3 Months Social History Tobacco Use Types Packs/Day Years Used Date Smoking Tobacco: Never Smokeless Tobacco: Never Alcohol Use Standard Drinks/Week Comments Never 0 (1 standard drink = 0.6 oz pur e alcohol) Comments No Sex and Gender Information Value Date Recorded Sex Assigned at Female 07/25/2024 4:39 PM APPAREL FASHION DESIGNER Legal Sex Female 7:41 PM CDT Gender Identity Not on file Sexual Orientation Not on file Last Filed Vital Signs Vital Sign Reading Time Taken Comments Blood Pressure 101/56 08/04/2024 12:55 PM APPAREL FASHION DESIGNER Pulse 76 08/04/2024 12:55 PM APPAREL FASHION DESIGNER Temperature 37.3 C (99.1 F) 08/04/2024 10:10 AM APPAREL FASHION DESIGNER Respiratory Rate 18 08/04/2024 12:55 PM APPAREL FASHION DESIGNER Oxygen Saturation 98% 08/04/2024 12:55 PM APPAREL FASHION DESIGNER Inhaled Oxygen Concentration - - Weight 91.7 kg (202 lb 2.6 oz) 08/04/2024 10:10 AM APPAREL FASHION DESIGNER Height 162.6 cm (5' 4 ) 08/04/2024 10:10 AM APPAREL FASHION DESIGNER Body Mass Index 34.7 08/04/2024 10:10 AM APPAREL FASHION DESIGNER Plan of Treatment Health Maintenance Due Date [...] 5 Years 2007 Cervical Cancer Screening wi th HPV 2007 Mammogram Screening 2017 COVID-19 Vaccine ( - 2023-2 5 season) 2024 Influenza Adult (#1) 2024 [...] Procedure Name Priority Date/Time Associated Diagnosis Comments XR CHEST PA+LAT STAT 08/04/2024 11:15 AM APPAREL FASHION DESIGNER STREP A RAPID STAT 08/04/2024 10:38 AM APPAREL FASHION DESIGNER INFLUENZA A & B STAT 08/04/2024 10:38 AM APPAREL FASHION DESIGNER POCT URINE (BACK OFFICE) STAT 07/25/2024 5:48 [address]ION [address] CERV SPINE WO CON STAT 07/25/2024 5:20 PM APPAREL FASHION [address]ER CT HEAD WO CON STAT 07/25/2024 5:20 PM APPAREL FASHION DESIGNER from Last 3 Months Results * XR CHEST PA+LAT (08/04/2024 11:15 AM APPAREL FASHION DESIGNER) Anatomical Region Laterality Modality Chest Radiographic Kylie ging 08/04/2024 11:4 7 AM APPAREL FASHION DESIGNER Impressions 08/04/2024 11:49 AM APPAREL FASHION DESIGNER =====IMPRESSION:===== Unremarkable two-view chest; no radiographic evidence of acute/active cardiopulmonary disease. Ordered By: ALFREDO MENDOZA Interpreted By: Cheng Schwartz MD, 08/04/2024 11:47 AM Narrative 08/04/2024 11:49 AM APPAREL FASHION DESIGNER [address] [address] Examination: Chest x-ray 2 view Exam date/time: 08/04/2024 10:51 AM Reason For Exam: 49 female. Complaint of a cough, chills. Sore throat. Fever Comparison: Chest x-ray 11/07/2019 Technique: Frontal and lateral view chest. Findings: Normal cardiac size. Normal position of the trachea. Hilar and mediastinal contours are within normal limits. Normal pulmonary vascularity. The lungs and pleural spaces spaces are radiographically clear; no consolidation, effusion or pneumothorax seen. Upper abdomen is unremarkable. Procedure Note Cheng Schwartz MD - 08/04/[address] [place], [place] [address] Examination: Chest x-ray 2 view Exam date/time: 08/04/2024 10:51 AM Reason For Exam: 49 female. Complaint of a cough, chills. Sore throat.Fever Comparison: Chest x-ray 11/07/2019 Technique: Frontal and lateral view chest. Findings: Normal cardiac size. Normal position of the trachea. Hilar andmediastinal contours are within normal limits. Normal pulmonaryvascularity. The lungs and pleural spaces spaces are radiographicallyclear; no consolidation, effusion or pneumothorax seen. Upper abdomen is unremarkable. =====IMPRESSION:===== Unremarkable two-view chest; no radiographic evidence of acute/activecardiopulmonary disease. Ordered By: ALFREDO MENDOZA Interpreted By: Cheng Schwartz MD, 08/04/2024 11:47 AM Alfredo [facility] Final Resul t * (ABNORMAL) INFLUENZA A & B (08/04/2024 10:38 AM APPAREL FASHION DESIGNER) SPECIMEN TYPE NASAL 08/04/2024 10:44 AM APPAREL FASHION DESIGNER [facility] INFLUENZA A POSITIVE(A) NEGATIVE 08/04/2024 11:10 AM APPAREL FASHION DESIGNER [facility] INFLUENZA B NEGATIVE NEGATIVE 08/04/2024 11:10 AM APPAREL FASHION DESIGNER [facility] Comment: Interpretation: Positive for Influenza Type A. This test can not distinguish influenza A virus subtypes. For example, this test cannot distinguish influenza infections caused by novel influenza A viruses versus seasonal influenza A viruses. NASOPHARYNGEAL SWAB / Unknown 08/04/2024 10:38 AM APPAREL FASHION DESIGNER Alfredo [facility] - GENERAL [facility] ARJUN Final Result [facility] [address] [place] [address], [place] [phone] * STREP A RAPID (08/04/2024 10:38 AM APPAREL FASHION DESIGNER) SPECIMEN TYPE THROAT 08/04/2024 10:37 AM APPAREL FASHION DESIGNER [facility] RAPID STREP TEST NEGATIVE NEGATIVE 08/04/2024 11:11 AM APPAREL FASHION DESIGNER [facility] STRUCTURE OF ANTERIOR PORTION OF NECK / Unknown 08/04/2024 10:38 AM APPAREL FASHION DESIGNER Alfredo DELATORRE MICROBIOLOGY - GENERAL ANGIE DÍAZ Final Result [facility] [address] [place] [address], [place] [phone] * POCT urine (07/25/2024 5:48 PM APPAREL FASHION DESIGNER) URINE HCG TEST NEGATIVE Internal Control: VALID Cathie DELATORRE POINT OF CARE TEST ORDERABLES Final Result * CT HEAD WO CON (07/25/2024 5:20 PM APPAREL FASHION DESIGNER) Anatomical Region Laterality Modality Head Computed Tomogra phy 07/25/2024 5:58 PM APPAREL FASHION DESIGNER Impressions 07/25/2024 5:59 PM APPAREL FASHION DESIGNER =====IMPRESSION:===== 1. No acute intracranial abnormality. Ordered By: CATHIE ALVAREZ Interpreted By: Maik Sloan MD, 07/25/2024 5:58 PM Narrative 07/25/2024 5:59 PM APPAREL FASHION DESIGNER [facility] [address] [place], [place] [address] EXAMINATION: CT of the head without contrast [...] Procedure Note Maik Sloan MD - 07/25/[address] [address] EXAMINATION: CT of the head without contrast [...] No acute intracranial abnormality. Ordered By: CATHIE ALVAREZ Interpreted By: Maik Sloan MD, 07/25/2024 5:58 PM Cathie Alvarez PA CT Final Result * CT CERV SPINE WO CON (07/25/2024 5:20 PM APPAREL FASHION DESIGNER) Anatomical Region Laterality Modality Spine Computed Tomogra phy 07/25/2024 5:55 PM APPAREL FASHION DESIGNER Impressions 07/25/2024 5:57 PM APPAREL FASHION DESIGNER =====IMPRESSION:===== 1. No evidence of acute cervical spine fracture or dislocation. Ordered By: CATHIE ALVAREZ Interpreted By: Maik Sloan MD, 07/25/2024 5:55 PM Narrative 07/25/2024 5:57 PM APPAREL FASHION DESIGNER [address] [address] EXAMINATION: CT Cervical Spine without contrast. EXAM [...] Procedure Note Maik Sloan MD - 07/25/2024 [facility] [address] [place], [place] [address] EXAMINATION: CT Cervical Spine without contrast. EXAM [...] spine fracture or dislocation. Ordered By: CATHIE ALVAREZ Interpreted By: Maik Sloan MD, 07/25/2024 5:55 PM Cathie [address] DC CT Final Result from Last 3 Months Insurance [employer] Care Teams Taxi Driver Relationship Specialty Start Date End Date Neeraj Jenkins MD PCP - General FAMILY PRACTICE 10/09/23
--- OUTSIDE RECORDS SUMMARY | 2024-08-30 10:36 | XMS_ITS | Clinical Summary ---
Author Organization [facility] Address [address] [place] [phone] Phone Care Team Providers Care Finisher Polisher Name Role Phone Conversion, History Primary Care [...] on file Legal Sex Female 4:51 AM CLIENT DELIVERY SPECIALIST Gender Identity Not on file Sexual Orientation [...] Advance Directives For more information, please contact: [phone] * Full Code (Latest Code Status on File) Date Activated Date Inactivated Comments 09/12/2016 5:21 AM 09/14/2016 2:40 PM * Full Code Date Activated Date Inactivated Comments 09/12/2016 4:27 AM 09/12/2016 5:21 AM Care Teams Finisher Polisher Relationship Specialty Start Date End Date Conversion, History PCP - General 01/19/07
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
--- OUTSIDE RECORDS SUMMARY | 2024-08-30 10:36 | XMS_ITS | Encounter Summary ---
Author Organization [employer] Address [address] [place] [address] Care Team Providers Care Frit Mixer And Burner Name Role Phone Conversion, History Primary Care Provider Estee elias Encounter Details Date Type Department Care Team (Late st Contact Info) Description 01/19/2007 Outpatient Historical [facility] Phuc Carias MD [address] [place] [address] Er, Authorized P NO ADDRESS ON FILE Unspecified Hemorrhage in Early , Antepartum (Primary Dx) Social History Tobacco Use Types Packs/Day Years Used Date Smoking Tobacco: Never Assessed Comments Unknown Sex and Gender Information Value Date Recorded Sex Assigned at Not on file Legal Sex Female 4:51 AM PURSE FRAMER Gender Identity Not on file Sexual Orientation [...] Provider HEMATOLOGY ORDERABLES Edited Performing Organization Address City/State/[facility] Co de Phone Number INTERFACE SYSTEM Refer [...] Provider HEMATOLOGY ORDERABLES Edited Performing Organization Address City/[facility] Co de Phone Number INTERFACE SYSTEM Refer to clinic/hospital department documented in this encounter Visit Diagnoses Diagnosis Unspecified hemorrhage in early , antepartum- Primary documented in this encounter Care Teams Frit Mixer And Burner Relationship Specialty Start Date End Date Conversion, History PCP - General 01/19/07 documented as of this encounter
--- OUTSIDE RECORDS SUMMARY | 2024-08-30 10:37 | XMS_ITS | Clinical Summary ---
Author Organization [facility] [employer] Address [address] [place] [address] Care Team Providers Care Market Garden Worker Name Role Phone Nasrin Walton Cherelle DO Unavailable Marcin Sarmiento MD Unavailable Orlando Curry MD Primary Care Provider Unav ailable Source Comments [facility],non-owned Affiliates and Associated Physician Practices is amultiple site organization consisting of ambulatory clinics and hospital sitesin [place], [place], [place] and [place]. This disclosure is being madepursuant to the Care Everywhere program and may not contain all information available regarding this patient. Last updated 18.[facility] Allergies Active Allergy Reactions Criticality Noted Date [...] (1000 UNITS) tabletIndication s:Do not restart until streetsweeper operator visit at 2 weeks following surgery Take 2 (two) tablets by mouth 2 times daily Reasons: Do not restart until streetsweeper operator visit at 2 weeks following surgery 09/01/2020 [...] by mouth 2 times daily Active Zenpep 52599-054233 units capsule TAKE 2 CAPSULES BY MOUTH THREE TIMES DAILY WITH MEALS 03/08/2022 Active fluticasone propionate (Flonase) 50 MCG/ACT nasal spray USE 1 TO 2 SPRAYS IN EACH NOSTRIL DAILY FOLLOWING NASAL IRRIGATION 03/23/2022 Active montelukast (Singulair) 10 MG tablet 09/13/2023 Active albuterol HFA (Proventil; Ventolin; Proair) 108 (90 Base) MCG/ACT inhaler INHALE 2 PUFFS INTO THE LUNGS EVERY 6 HOURS NEEDED 08/04/2024 Active B Complex Vitamins (B COMPLEX 1 PO) Active omeprazole (PriLOSEC) 20 MG capsule Take 1 (one) capsule by mouth once daily 90 capsule 3 08/29/2024 Active omeprazole (PriLOSEC) 40 MG capsule TAKE 1 CAPSULE BY MOUTH EVERY DAY 30 capsule 1 07/07/2024 08/29/2024 Discontinue d(Dose Adjustment) calcium carbonate (Os-Deacon 500) 1250 (500 Ca) MG tablet Take 2.5 (two and one-half) tablets by mouth 2 times daily 08/29/2024 Discontinue d(List Clean-Up) Active Problems Problem Noted Date Diagnosed Date [...] Encounters Date Type Department Care Team Description 08/29/2024 3:30 PM FOOD SERVER Office Visit [facility] Weight Management Services [address] [place] [address] Marely Montesinos APRN-DON S/P laparoscopic sleeve gastrectomy (Primary Dx); Hypothyroidism, unspecified type; Hyperparathyroidism, unspecified (HCC); History of vitamin D deficiency; History of prediabetes; H/O vitamin B deficiency; History of iron deficiency; Bariatric surgery status; Class 2 severe obesity due to excess calories with serious comorbidity and body mass index (BMI) of 37.0 to 37.9 in adult (HCC) 08/29/2024 3:00 PM FOOD SERVER Clinical Support [facility] Weight Management Services [address] [place] [address] S/P laparoscopic sleeve gastrectomy 07/07/2024 Refill [facility] [address] [place] [address] Marely Montesinos APRN-CIGARETTE MAKING MACHINE CATCHER Refill Request 07/06/2024 Refill [facility] [address] [place] [address] Jess Jarrett APRN-CIGARETTE MAKING MACHINE CATCHER Refill Request from Last 3 Months Immunizations Name Administration Dates Next Due INFLUENZA VACCINE 03/16/2011 TDAP (7yrs+) 07/15/2010 Family History Medical History Relation Name Comments Stroke Maternal Grandmother Diabetes Mother Hypertension Mother Relation Name Status Comments Maternal Grandmother Mother Social History Tobacco Use Types Packs/Day Years Used Date Smoking Tobacco: Former Cigarettes 0.5 13 0 02/24/1996 - 02/23/2009 Smokeless Tobacco: Never Tobacco Cessation:Counseling Given: Not Answered Alcohol Use Standard Drinks/Week Comments Not Currently 0 (1 standard drink = 0.6 oz pur e alcohol) AUDIT-C Answer Date Recorded Q1: How often do you have a drink containing alc ohol? Never 06/02/2020 Average Number of Drinks Not on file 020 Frequency of Binge Drinking Not on file 02/2020 PHQ-2 Answer Date Recorded Patient Health Questionnaire-2 Score 0 08/29/2024 Sex and Gender Information Value Date Recorded Sex Assigned at Not on file Gender Identity Not on file Sexual Orientation Not on file Last Filed Vital Signs Vital Sign Reading Time Taken Comments Blood Pressure 128/76 08/29/2024 3:00 PM FOOD SERVER Pulse 63 08/29/2024 3:00 PM FOOD SERVER Temperature 37.2 C (98.9 F) 08/29/2024 3:00 PM FOOD SERVER Respiratory Rate 18 08/29/2024 3:00 PM FOOD SERVER Oxygen Saturation 100% 08/29/2024 3:00 PM FOOD SERVER Inhaled Oxygen Concentration - - Weight 91.8 kg (202 lb 6.4 oz) 08/29/2024 3:00 P M FOOD SERVER Height 156.5 cm (5' 1.61 ) 08/29/2024 3:00 PM CS T Body Mass Index 37.48 08/29/2024 3:00 PM FOOD SERVER Plan of Treatment Upcoming Encounters Date Type Department Care Team (Late st Contact Info) Description 09/04/2025 3:00 PM CDT Clinical Support [facility] Weight Management Services [address] [place] [address] 09/04/2025 3:30 PM CDT Office Visit [facility] Weight Management Services [address] [place] [address] Marely Montesinos, ROLL PLUGGER-CIGARETTE MAKING MACHINE CATCHER [address] [place] [address] Health Maintenance Due Date Last Done Comments [...] season) 2024 INFLUENZA VACCINE (#1) 2024 03/16/2011 MAMMOGRAM 10/01/2025 10/02/2023, 07/17/2022 SCREENING FOR DIABETES 09/14/2026 , 09/01/2020, 09/01/2020, Additional history exists ZOSTER VACCINE (1 of 2) 2027 LIPID TESTING 09/14/2028 09/15/2023 DEPRESSION SCREENING Completed 08/29/2024, 09/14/19 24 HIB VACCINE Aged Out No longer eligi [...] this topic Medical Devices Implanted Type Area Manager Market Development Device Identifier Shelf Expiration Date Model / Serial / Lot Kit Tissue Clsr Duo Tssl 1 Prefl Syr Implanted:Qty: 1 on 08/31/2020 by Felecia Valencia MD at [facility] [employer] [id number] / / Procedures Procedure Name Priority Date/Time Associated Diagnosis Comments COMPREHENSIVE METABOLIC PANEL Routine 09/15/2023 S/P laparoscopic sleeve gastrectomy Hypothyroidism, unspecified type Intestinal malabsorption, unspecified type (HCC) LIPID PROFILE Routine 09/15/2023 S/P laparoscopic sleeve gastrectomy Hypothyroidism, unspecified type Intestinal malabsorption, unspecified type (HCC) PAP SMEAR IG HPV HR Routine 07/29/2010 2 :17 PM FOOD SERVER Routine gynecological examination Special screening examination for human papillomavirus (HPV) from Last 3 Months or Most Recently Relevant to Health Maintenance Results * COMPREHENSIVE METABOLIC PANEL (09/15/2023) Blood BLOOD SPECIMEN / Unknown 09/15/2023 Jess Jarrett ROLL PLUGGER-CIGARETTE MAKING MACHINE CATCHER LAB - [facility] ORDERABLES OTHER LAB * LIPID PROFILE (09/15/2023) Blood BLOOD SPECIMEN / Unknown 09/15/2023 Jess Jarrett ROLL PLUGGER-CIGARETTE MAKING MACHINE CATCHER LAB - [facility] ORDERABLES OTHER LAB * PAP SMEAR IG HPV HR (PO REF LAB) (07/29/2010 2:17 PM FOOD SERVER) Diagnosis [facility] INSURANCE BILL Comment:NEGATIVE FOR INTRAEP ITHELIAL LESION AND MALIGNANCY. Specimen Adequacy [facility] INSURANCE BILL Comment: Satisfactory for evaluation. Endocervical and/or squamous metaplastic cells (endocervical component) are present. Clinician Provided ICD9 [facility] INSURANCE BILL Comment: 112.3 ; Candidiasis of skin and nails V72.31 ; Routine gynecological examination V73.81 ; Special screening examination, human papillomavirus [HPV] Performed by [facility] INSURANCE BILL Comment:Nadine Manuel ytotechnologist (ASCP) Comment [...] PAPANICOLAOU TECHNIQUE / Unknown 07/29/2010 2:17 PM FOOD SERVER 07/29/2010 9:13 PM FOOD SERVER Narrative [facility] INSURANCE BILL - 08/03/2010 2:17 PM FOOD SERVER No. of containers..01 CYTYC Thin Prep Vial Resulting Agency Comment [facility] [address] [place] [phone] Nasrin Walton DO LAB - PATHOLOGY/CYTO LOGY ORDERABLES [facility] INSURANCE BILL from Last 3 Months or Most Recently Relevant to Health Maintenance Advance Directives * Full Code (Latest Code Status on File) Date Activated Date Inactivated Comments 08/31/2020 10:30 AM 09/01/2020 2:14 PM * FULL RESUSCITATION Date Activated Date Inactivated Comments 03/14/2011 10:20 PM 03/18/2011 8:38 PM Care Teams Market Garden Worker Relationship Specialty Start Date End Date Orlando Curry MD NEED INFORMATION UPDATED PCP - General 09/03/20 [place] [id number] [address] Obstetrics and Gynecology 02/28/12 [place] [address] [address] Pulmonary Disease 02/28/12
--- OUTSIDE RECORDS SUMMARY | 2024-08-30 10:37 | XMS_ITS | Referral Summary ---
Author Organization [facility] Address [address] [place] [address] Care Team Providers Care Lab Clerk Name Role Phone Nasrin Walton Cherelle DO Unavailable Marcin Sarmiento MD Unavailable Orlando Curry MD Primary Care Provider Unav ailable Source Comments [facility],non-owned Affiliates and Associated Physician Practices is amultiple site organization consisting of ambulatory clinics and hospital sitesin [place], [place], [place] and [place]. This disclosure is being madepursuant to the Care Everywhere program and may not contain all information available regarding this patient. Last updated 18.[facility] Encounters Date Type Department Care Team Description 08/29/2024 3:30 PM CONSUMER ATTORNEY Office Visit [facility] Weight Management Services [address] [place] [address] Marely Montesinos, STAMPS OR COINS SALESPERSON-WHARF BUILDER S/P laparoscopic sleeve gastrectomy (Primary Dx); Hypothyroidism, unspecified type; Hyperparathyroidism, unspecified (HCC); History of vitamin D deficiency; History of prediabetes; H/O vitamin B deficiency; History of iron deficiency; Bariatric surgery status; Class 2 severe obesity due to excess calories with serious comorbidity and body mass index (BMI) of 37.0 to 37.9 in adult (HCC) 08/29/2024 3:00 PM CONSUMER ATTORNEY Clinical Support [facility] Weight Management Services [address] [place] [address] S/P laparoscopic sleeve gastrectomy 07/07/2024 Refill [facility] Weight Management Services [address] [place] [address] Marely Montesinos APRN-WHARF BUILDER Refill Request 07/06/2024 Refill [facility] [address] [place] [address] Jess Jarrett APRN-WHARF BUILDER Refill Request from Last 3 Months Allergies [...] (1000 UNITS) tabletIndication s:Do not restart until chemical plant operator supervisor visit at 2 weeks following surgery Take 2 (two) tablets by mouth 2 times daily Reasons: Do not restart until chemical plant operator supervisor visit at 2 weeks following surgery 09/01/2020 [...] by mouth 2 times daily Active Zenpep 22272-891062 units capsule TAKE 2 CAPSULES BY MOUTH [...] Comments Blood Pressure 128/76 08/29/2024 3:00 PM CONSUMER ATTORNEY Pulse 63 08/29/2024 3:00 PM CONSUMER ATTORNEY Temperature 37.2 C (98.9 F) 08/29/2024 3:00 PM CONSUMER ATTORNEY Respiratory Rate 18 08/29/2024 3:00 PM CONSUMER ATTORNEY Oxygen Saturation 100% 08/29/2024 3:00 PM CONSUMER ATTORNEY Inhaled Oxygen Concentration - - Weight 91.8 kg (202 lb 6.4 oz) 08/29/2024 3:00 P M CONSUMER ATTORNEY Height 156.5 cm (5' 1.61 ) 08/29/2024 3:00 PM CS T Body Mass Index 37.48 08/29/2024 3:00 PM CONSUMER ATTORNEY Functional Status Functional Status Response Date of [...] Description 09/04/2025 3:00 PM CDT Clinical Support [facility] [address] [place] [address] 09/04/2025 3:30 PM CDT Office Visit [facility] Weight Management Services [address] [place] [address] Marely Montesinos, STAMPS OR COINS SALESPERSON-WHARF BUILDER [address] [place] [address] Medical Devices Implanted Type Area Chef De Cuisine Device Identifier Shelf Expiration Date Model / Serial / Lot Kit Tissue Clsr Duo Tssl 1 Prefl Syr Implanted:Qty: 1 on 08/31/2020 by Felecia Valencia MD at [facility] [employer] [id number] / / Procedures Procedure Name Priority Date/Time Associated Diagnosis Comments COMPREHENSIVE METABOLIC PANEL Routine 09/15/2023 S/P laparoscopic sleeve gastrectomy Hypothyroidism, unspecified type Intestinal malabsorption, unspecified type (HCC) LIPID PROFILE Routine 09/15/2023 S/P laparoscopic sleeve gastrectomy Hypothyroidism, unspecified type Intestinal malabsorption, unspecified type (HCC) PAP SMEAR IG HPV HR Routine 07/29/2010 2 :17 PM CONSUMER ATTORNEY Routine gynecological examination Special screening examination for human papillomavirus (HPV) from Last 3 Months or Most Recently Relevant to Health Maintenance Results * COMPREHENSIVE METABOLIC PANEL (09/15/2023) Blood BLOOD SPECIMEN / Unknown 09/15/2023 Jess Jarrett APRN-WHARF BUILDER LAB - [facility] ORDERABLES OTHER LAB * LIPID PROFILE (09/15/2023) Blood BLOOD SPECIMEN / Unknown 09/15/2023 Jess Jarrett STAMPS OR COINS SALESPERSON-WHARF BUILDER LAB - [facility] ORDERABLES OTHER LAB * PAP SMEAR IG HPV HR (PO REF LAB) (07/29/2010 2:17 PM CONSUMER ATTORNEY) Diagnosis [facility] INSURANCE BILL Comment:NEGATIVE FOR INTRAEP [...] PAPANICOLAOU TECHNIQUE / Unknown 07/29/2010 2:17 PM CONSUMER ATTORNEY 07/29/2010 9:13 PM CONSUMER ATTORNEY Narrative [facility] INSURANCE BILL - 08/03/2010 2:17 PM CONSUMER ATTORNEY No. of containers..01 CYTYC Thin Prep Vial Resulting Agency Comment [facility] [place] [id number] Nasrin Walton DO LAB - PATHOLOGY/CYTO LOGY ORDERABLES [facility] INSURANCE BILL from Last 3 Months or Most Recently Relevant to Health Maintenance Advance Directives * Full Code (Latest Code Status on File) Date Activated Date Inactivated Comments 08/31/2020 10:30 AM 09/01/2020 2:14 PM * FULL RESUSCITATION Date Activated Date Inactivated Comments 03/14/2011 10:20 PM 03/18/2011 8:38 PM Care Teams Lab Clerk Relationship Specialty Start Date End Date Orlando Curry MD NEED INFORMATION UPDATED PCP - General 09/03/20 [place] [address] [address] [place] [address] Obstetrics and Gynecology 02/28/12 [place] [address] [place] [address] Pulmonary Disease 02/28/12
--- OUTSIDE RECORDS SUMMARY | 2024-08-30 10:37 | XMS_ITS | Data Portability ---
Author Organization [facility] JAZZYOfelia Jin Address [address] [place] [address] Care Team Providers Care Bark Peeler Name Role Phone OCONNELL, ONDINATIFFANIE Primary Care Provider Unavailab le Assessment Encounter Date Assessment Date Assessment LastModified by Organization Details LastModified Time 12/03/2023 12/03/2023 48 yo; PMHx of hypothyroidism and migraines; presenting for f/u on MRI. [email or web address] Not available 12/03/2023 11:26:46 Plan of Treatment Reminders Order Date Submit Date Provider Last Modified By Organization Details Last Modified Time Details Appointments None recorde d. Lab TSH, ultra-s ensitiv e, serum 2024 025 yvan [facility], [address] [place] [address], [address], [place], [address], 5 16:12:14 vitamin B12 + folate, serum or blood 2023 024 JONES [facility], [address] [place] [address], [address], [place], [address], 4 16:40:08 vitamin D, 25-hydr oxy, total, serum 2023 024 JONES [facility], [address] [place] [address], [address], [place], [address], 4 16:40:08 magnesi um, serum or plasma 2023 024 TERE [facility], [address] [facility], [address], [place], [address], 4 13:12:50 CBC w/ auto diff 2023 024 TERE [facility], [address] [facility] [address], [address], [place], [address], 4 13:12:31 CMP, serum or plasma 2023 024 TERE [facility], [address] [facility], [address], [place], [address], 4 13:11:03 Referral endocri nology referra l - previou sly seen by Niharika Spencer 2024 025 [facility], [address] [place], [address], 5 15:05:[address] referra l 2023 024 [facility] [place], [address], [place], [address], 4 16:56:34 Procedures None recorde d. Surgeries None recorde d. Imaging MRI, brain, w/ contras t 2023 024 [facility], [address] [facility], [place], [address], 4 17:33:53 MRI, cervica l spine, w/o contras t [facility] [address], [place], [address], 4 16:16:18 Medication Orders Zenpep 40,000 unit-12 6,000 unit-16 8,000 unit capsule ,delaye d release 2024 025 TERE [id number], [address], [place], [id number], 21:38:16 Patient TargetsNo targets recorded. Patient Instructions Encounter Date Encounter Id Patient Instructions Last Modified By Organization Details Last Modified Time 10/09/2023 [id number] agree w plan and treatment and was present Dr. Oral gatica Not available 10/09/2023 15:39:09 10/22/2023 [id number] I was present an d available in the Family Medicine clinic to discuss this patient's care during the appointment. I agree with the resident's assessment and plan as documented. KGR [email or web address] Not available 10/22/2023 12:38:57 12/03/2023 [id number] A healthy lifestyle: care instructions [email or web address] Not available 12/03/2023 11:46:47 I was present an d available in the Family Medicine clinic to discuss this patient's care for the duration of the appointment. I agree with the resident's assessment and plan as documented with the following addendum: None. Dr. Jose Lee MD Attending Physician, COUNTS INCLUDE 234 BEDS AT THE [facility]. [email or web address] Not available 12/04/2023 09:42:37 07/25/2024 [id number] Case was discussed with me in the Teach Room on date of encounter. I agree with residents assessment and plan of care as docuemented above with any exceptions/additi ons noted below if necessary. All labs/rads/consult s to be followed by ordering provider. Jacey Worley DO Family Medicine Physician [email or web address] Not available 08/11/2024 07:35:51 08/07/2024 [id number] influenza (flu): care instructions [email or web address] Not available 08/07/2024 23:29:16 I was present an d available to see this patient in [facility] clinic. I agree with the written findings. Lisa Sánchez MD [email or web address] Not available 08/12/2024 15:05:40 Reason for Referral Physical Therapist Referral for Paresthesia of upper limb Referring Physician: Jordan Camacho, Jewel Hole Gauger, Encounter Date: 12/03/2023 Endocrinology Referral for E xocrine pancreatic insufficiency previously seen by Niharika Arcos Referring Physician: Gary Oconnell, Jewel Hole Gauger, Encounter Date: 07/25/2024 Results Created Date Observation Date Name Description Value Unit Range Abnormal Flag Note LastModifiedBy Organization Detail LastModifiedTime 09/15/19 24 09/15/2023 25-hy droxy vitam in D3 [Mass /volu me] in Serum or Plasm a Unknown Analyte Not Available Not Available 07/26 10:06:59 09/15/19 24 09/15/2023 CBC W Auto Diffe renti al panel - Blood Unknown Analyte Not Available Not Available 07/26 10:06:59 09/15/19 24 09/15/2023 Phosp hate [Mass /volu me] in Serum or Plasm a Unknown Analyte Not Available Not Available 07/26 10:06:58 09/15/19 24 09/15/2023 Magne sium [Mass /volu me] in Serum or Plasm a Unknown Analyte Not Available Not Available 07/26 10:06:58 09/15/19 24 09/15/2023 Cobal roberson (Vanessa min B12) [Mass /volu me] in Serum or Plasm a Unknown Analyte Not Available Not Available 07/26 10:06:58 09/15/19 24 09/15/2023 Thyro tropi n [Unit s/vol ume] in Serum or Plasm a by Detec tion limit <= 0.005 mIU/L Unknown Analyte Not Available Not Available 07/26 10:06:58 09/15/19 24 09/15/2023 Iron satur ation [Mass Fract ion] in Serum or Plasm a Unknown Analyte Not Available Not Available 07/26 10:06:58 09/15/19 24 09/15/2023 Génesis tin [Mass /volu me] in Serum or Plasm a Unknown Analyte Not Available Not Available 07/26 10:06:57 09/15/19 24 09/15/2023 Compr ehens june metab olic 2000 panel - Serum or Plasm a Unknown Analyte Not Available Not Available 07/26 10:06:50 09/15/19 24 09/15/2023 Lipid 1996 panel - Serum or Plasm a Unknown Analyte Not Available Not Available 07/26 10:06:50 05/29/20 24 05/29/2024 Chori ogona dotro pin (preg abebe test) [Pres ence] in Urine choriogonado tropin ( test) [presence] in urine NEGATI VE text: negati ve URINE HCG PREGN RIP TEST NEGAT JUNE NEGAT JUNE [facility] Not Available Not Available 08/07/2024 10:06:38 05/29/20 24 05/29/2024 Chori ogona dotro pin (preg abebe test) [Pres ence] in Urine service comment VALID text: valid Inter nal Contr ol: VALID VALID [facility] Not Available Not Available 08/07/2024 10:06:38 08/04/19 25 08/04/2024 Influ melba virus A+B Ag [Pres ence] in Speci men specimen source identified NASAL SPECI MEN TYPE NASAL 08/04 10:44 AM PRECISION AGRICULTURE SPECIALIST [facility] Not Available Not Available 08/07/2024 10:06:38 08/04/19 25 08/04/2024 Influ melba virus A+B Ag [Pres ence] in Speci men influenza virus A Ag [presence] in specimen POSITI VE text: negati ve abnormal INFLU MELBA A POSIT JUNE (A) NEGAT JUNE 08/04 11:10 AM PRECISION AGRICULTURE SPECIAL[facility] Not Available Not Available 08/07/2024 10:06:38 08/04/19 25 08/04/2024 Influ melba virus A+B Ag [Pres ence] in Speci men haemophilus influenzae B Ag [presence] in specimen NEGATI VE text: negati ve INFLU MELBA B NEGAT JUNE NEGAT JUNE 08/04 11:10 AM PRECISION AGRICULTURE SPECIALIST [facility] Not Available Not Available 08/07/2024 10:06:38 08/04/19 25 08/04/2024 Influ melba virus A+B Ag [Pres ence] in Speci men interpretati on and review of laboratory results Abnorm al Not Available Not Available 10:06:38 08/04/19 25 08/04/2024 Strep tococ cus pyoge corina Ag [Pres ence] in Ricky t specimen source identified THROAT SPECI MEN TYPE THROA T 08/04 10:37 AM PRECISION AGRICULTURE SPECIALIST [facility] Not Available Not Available 08/07/2024 10:06:38 08/04/19 25 08/04/2024 Strep tococ cus pyoge corina Ag [Pres ence] in Ricky t streptococcu s pyogenes Ag [presence] in throat NEGATI VE text: negati ve RAPID STREP TEST NEGAT JUNE NEGAT JUNE 08/04 11:11 AM PRECISION AGRICULTURE SPECIALIST [facility] Not Available Not Available 08/07/2024 10:06:38 10/02/19 24 10/02/2023 MAMMO , scree jeanine, tomos ynthe sis, bilat eral No observ ation record ed. [email or web address] [address], [place], [address], 10/10/2023 09:13:15 10/11/[address], head, w/o contr ast [facility] [place] [address] [place] [address] EXAMIN ATION: CT OF THE HEAD WITHOU T CONTRA ST ACCESS ION: [id number] EXAM DATE/T LEAH: 024 10:46 AM [...] automa layne exposu re contro l, iterat june recons tructi on, ALARA (As Low As [...] intrac ranial vascul ar calcif icatio ns. Side Seam Tender ior crania l fossa are unrema rkable . =====I MPRESS ION:== === No eviden ce of acute intrac ranial hemorr darryn, mass effect , or midlin e shift. Specif ically no distin ct abnorm ality within the bone char operator ior fossa. Near total opacif icatio n of partia lly visual ized right maxill abbey sinus may be due to chroni c inflam matory proces s. ====== ====== ====== === Ordere d By: VON Cunningham onical ly Signed By: Dinorah Estrada on 12:53 PM Interp reted By: Dinorah Estrada , 12:49 PM [email or web address] [facility] (Imaging & Mammogram) [address] [place] [address], [address], 10/29/2023 09:44:57 11/17/19 24 XR, cervi claritza spine , 2 or 3 view [facility] [place] [address] [place] [id number] Examin ation: Cervic al spine , 3 views Access ion: [id number] Exam Date/T leah: 2:16 PM Reason [...] film evalua tion. Referr ed By: VON Cunningham onical ly Signed By: Ashwin barragan MD on 6:31 AM Interp reted By: Ashwin barragan MD, 6:30 AM [email or web address] [facility] - Radiology [address] [place] [address], [address], 11/23/2023 14:00:01 11/20/19 24 MRI, brain , w/wo contr ast [facility] [place] [address] [facility], [place] [address] IMAGIN G STUDIE S: MRI BRAIN WWO CON DATE: 1:58 PM CLINIC AL HISTOR Y: . Headac hes. Neck pain.. Loss of converter skimmer in left hand. COMPAR HARMONY: No Compar [...] of the verteb robasi lar system and internet webmaster al caroti d arteri es in their proxim al portio ns. No gross abnorm ality within the brains tem or bone char operator ior fossa. Aragon/w louisa differ entiat ion [...] matter lesion s. Referr ed By: VON Cunningham onical ly Signed By: Vernon Estrada MD on 9:52 PM Interp reted By: Vernon Estrada MD, 9:[email or web address] [facility] ([facility]) [address] [place] [address], [address], 11/23/2023 14:00:01 12/26/[address], sinus es, w/o contr ast [facility] AL [address] [place] [address], [place] [address] EXAMIN ATION: Head CT withou t contra [...] Salvador Giordano MD, 12/26/19 8:47 AM [email or web address] [facility] (Imaging & Mammogram) [address] [place], [address], 12/26/2023 14:25:51 07/25/[address] cerv spine wo con [facility] [address] [place] [address] [facility] [place] [address] [facility] [place] [address] EXAMIN ATION: CT Cervic al Spine withou t contra st. ACCESS ION: [id number] EXAM DATE/T LEAH: 025 5:04 PM REASON [...] automa layne exposu re contro l, iterat june recons tructi on, ALARA (As Low As Reason ably Achiev able), or Image Gently techni ques. FINDIN GS: There is a normal cranio verteb ral juncti on. Cervic al verteb ral bodies are in good alignm ent with straig htenin g of the normal cervic al lordos is. Cervic al verteb ral body height s are well-m aintai west. There is no acute prever tebral soft [...] ====== ====== === Ordere d By: AKSHAT MELCHORP Electr onical ly Signed By: Jairo feliz MD on 025 5:57 PM Interp reted By: Jairo feliz MD, 025 5:55 PM [email or web address] [facility] [address] [facility], [place], [address], 07/30/2024 13:24:01 07/25/[address], head, w/o contr ast [facility] [address] [place] [address] [facility] - [place] 1 [facility] [place] [address] EXAMIN ATION: CT of the head withou t contra st ACCESS ION: [id number] EXAM DATE/T LEAH: 5:04 PM REASON FOR [...] automa layne exposu re contro l, iterat june recons tructi on, ALARA (As Low As [...] ====== ====== === Ordere d By: AKSHAT MELCHORP Electr onical ly Signed By: Jairo feliz MD on 5:59 PM Interp reted By: Jairo feliz MD, 5:58 PM [facility] [address] [facility] [place], [address], 07/30/2024 13:24:02 08/04/19 25 xr chest Pa+la t [facility] [address] [place] [address] [facility] - [place] 1 . [facility] [place] [id number] Examin ation: Chest x-ray 2 view Access ion: [id number] Exam date/t leah: 10:51 AM Reason For Exam: 49 female . Compla int of a cough, chills . Sore throat . Fever Compar harmony: Chest x-ray 020 Techni que: Fronta l and latera l view chest. Findin gs: Normal cardia c size. Normal positi on of the trache a. Hilar and medias tinal contou rs are within normal limits . Normal pulmon abbey vascul arity. The lungs and pleura l spaces spaces are radiog raphic ally clear; no consol idatio n, effusi on or pneumo thorax seen. Upper abdome n is unrema rkable . =====I MPRESS ION:== === Unrema rkable two-vi ew chest; no radiog raphic eviden ce of acute/ active cardio pulmon abbey diseas e. ====== ====== ====== === Ordere d By: MASON LANDAVERDE Electr onical ly Signed By: Cheng Schwartz MD on 11:49 AM Interp reted By: Cheng Schwartz MD, 11:47 AM [email or web address] [facility] [address] [facility], [place], [address], 08/07/2024 22:08:20 Result Notes None recorded. Problems Name Problem SNOMED Code Status Onset Date Resolution Date Notes Provider Name and Address Organization Details Recorded Time Hypothyr oidism 48677775 Active 2018 MYRON Molina - [facility] 9 11:07:42 Miscarri age 57253609 Completed 201801/20/2019 Miscarria ge s/p D&C 2006 Jt willis, [place] - [facility] 9 22:22:59 Morbid obesity 400179489 Active 2018 Jt [place] - [facility] 9 22:27:44 Cervical radiculo oscar 04288231 Active 2021 Reagan Sheldon [place] [facility] 2 15:43:24 Exocrine pancreat ic insuffic iency 52587212 Active 2021 Reagan [place] [facility] 2 17:36:52 Acute left otitis media 765369948 Active 2021 Reagan [place] [facility] 2 11:58:58 Acute sinusiti s 76096765 Active 2021 Reagan [place] [facility] 2 11:58:59 Allergic rhinitis 48368901 Active 2022 Reagan [place] [facility] 3 17:56:41 Notes:Some problems listed i n Document: #[id number] could not be added to this patient's chart. Please review this document and add these problems to the patient's chart manually as needed. Problem Notes None recorded. Procedures Surgical History Date Name Laterality Status Provider Name and Address Organization Details Recorded Time 2 Joint Injection completed Marcin Lovely [place] - [facility] 11/18/2021 13:08:31 1 Incision & Drainage completed Marcin Murry [place] - [facility] 11/12/2020 12:33:30 Imaging Results Imaging Date Name Status LastModified by [facility] Details LastModified Time 10/02/2023 MAMMO, screening, tomosynthesis, bilateral completed [email or web address] [place] [address] [facility] [address], [place], [address], 10/10/2023 09:13:15 10/11/2023 CT, head, w/o contrast completed [email or web address] [facility] (Imaging & Mammogram) [address] [place], [address], 10/29/2023 09:44:57 11/17/2023 XR, cervical spine, 2 or 3 view completed [address] - Radiology [address] [place], [address], 11/23/2023 14:00:01 11/20/2023 MRI, brain, w/wo contrast completed [address] (Central Scheduling) [address] [place], [address], 11/23/2023 14:00:01 12/26/2023 CT, sinuses, w/o contrast completed [address] (Imaging & Mammogram) [address] [place], [address], 12/26/2023 14:25:51 07/25/2024 CT cerv spine wo con completed [address], [address], 07/30/2024 13:24:01 07/25/2024 CT, head, w/o contrast completed [address], [address], 07/30/2024 13:24:02 08/04/2024 xr chest Pa+lat completed [address], [address], 08/07/2024 22:08:20 Procedure Notes None recorded. Medical Equipment None Reported. Allergies Allergen ID Allergen Name Allergen Category Reaction Reaction Severity Criticality Documentation Date Start Date Code Code System Note Provider Name and Address Organization Details Recorded Time 067930 Augmentin medicatio n Not available Not available Not available 09/09/2018 05156 2 RxNorm Not Available Not Available Not Available 962601 Dilaudid medicatio n Not available Not available Not available 09/09/2018 77706 3 RxNorm Not Available Not Available Not [...] ORAL ROUTE ONCE DAILY FOR 4 DAYS active Not Available Not Available No t Available ibuprofen 800 mg tablet TAKE 1 TABLET BY MOUTH THREE TIMES DAILY FOR 7 DAYS NEEDED FOR PAIN 07/25 completed Not Available Not Available Not Available benzonatate 200 mg capsule TAKE ONE CAPSULE BY MOUTH THREE TIMES DAILY NEEDED FOR COUGH active Not Available Not Available No t Available clarithromy rajesh 500 mg tablet TAKE [...] 2 TABLETS BY MOUTH THREE TIMES DAILY active Not Available Not Available No t Available triamcinolo ne acetonide 40 mg/mL suspension [...] completed Not Available Not Available Not Available lidocaine 5 % topical patch UNWRAP AND APPLY 1 PATCH ONTO THE SKIN DAILY FOR 30 DAYS. REMOVE AND DISCARD PATCH WITHIN 12 HOURS OR DIRECTED BY MD active Not Available Not Available No t Available promethazin e 25 mg tablet TAKE [...] mcg/actuati on aerosol inhaler INHALE 2 PUFFS INTO THE LUNGS EVERY 6 HOURS NEEDED active Not Available Not Available [...] 0 unit-168,00 0 unit capsule,del ayed release TAKE 2 CAPSULES BY MOUTH THREE TIMES DAILY active Not Available Not Available No t Available ID NOW COVID-19 Test Kit TEST DIRECTED 03/31 completed Not Available Not Available Not Available Vitals Date Recorded Body height Body mass index (BMI) Body weight Body temperature Oxygen saturation Oxygen saturation in Arterial blood by Pulse oximetry Heart rate Systolic blood pressure Diastolic blood pressure Provider Name and Address Organization Details Last Updated DateTime 4 161.29 cm 32.1 kg/m2 90423.7 g 98.7 [degF] 97 % 97 % 74 /min 107 mm[Hg] 70 mm[Hg] Leslie Navarro MA [facility] 4 14:03:46 Date Recorded Body height Body mass index (BMI) Body weight Heart rate Oxygen saturation Oxygen saturation in Arterial blood by Pulse oximetry Body temperature Systolic blood pressure Diastolic blood pressure Provider Name and Address Organization Details Last Updated DateTime 4 161.29 cm 32.7 kg/m2 87983.8 7 g 62 /min 97 % 97 % 97.8 [degF] 111 mm[Hg] 72 mm[Hg] Maryann Ureña MA [facility] 4 11:03:12 Date Recorded Body height Body mass index (BMI) Body weight Body temperature Heart rate Oxygen saturation Oxygen saturation in Arterial blood by Pulse oximetry Systolic blood pressure Diastolic blood pressure Provider Name and Address Organization Details Last Updated DateTime 4 161.29 cm 32.1 kg/m2 24124.3 5 g 97.3 [degF] 52 /min 98 % 98 % 102 mm[Hg] 67 mm[Hg] Tyler Berg MA [facility] 4 09:15:10 Date Recorded Body height Body mass index (BMI) Body weight Body temperature Oxygen saturation Oxygen saturation in Arterial blood by Pulse oximetry Heart rate Systolic blood pressure Diastolic blood pressure Provider Name and Address Organization Details Last Updated DateTime 5 161.29 cm 35.5 kg/m2 83829.7 g 98.6 [degF] 98 % 98 % 63 /min 101 mm[Hg] 68 mm[Hg] Xavi Irving MA [facility] 5 16:55:50 Date Recorded Body height Body temperature Oxygen saturation Oxygen saturation in Arterial blood by Pulse oximetry Heart rate Body mass index (BMI) Body weight Systolic blood pressure Diastolic blood pressure Provider Name and Address Organization Details Last Updated DateTime 5 161.29 cm 97.5 [degF] 98 % 98 % 62 /min 34.4 kg/m2 53151.0 5 g 108 mm[Hg] 73 mm[Hg] Xavi Irving MA [facility] 5 16:48:07 Social History Question Answer Notes LastModified by Organizat ion Details LastModified Time Tobacco Smoking Status Former Smoker -Pt quit smoking in 09/2009. -ORLY Rios, [employer] null, [place] - [facility] 11/12/2020 11:47:00 What Is Your Level Of Alcohol Consumption? None Information not available 11/12/2020 Do You Or Have You Ever Used E-cigarettes Or Vape? Never Used Electronic Cigarettes Information not available 07/19/2020 What Was The Date Of Your Most Recent Tobacco Screening? 08/07/2024 [email or web address] Information not available 08/07/2024 Do You Or Have You Ever Used [...] completed Gary Oconnell MD Attn: Accounting[address] [place], [address], [facility] - COUNTS INCLUDE 234 BEDS AT [facility] 07/25/2024 17:00:48 influenza, unspecified formulation 1 completed Gary Oconnell MD Attn: Accounting[address] [place], [address], [facility] 07/25/2024 17:00:48 Tdap 3 completed Bony Valverde MD Attn: Accounting[address] [place], [address], [facility] - [facility] 09/28/2022 15:45:48 Past Encounters Encounter ID Performer Location Encounter Start Date Encounter Closed Date Diagnosis/Indication Diagnosis SNOMED-CT Code Diagnosis ICD10 Code Diagnosis Note [id number] [facility] [address] [place] [address] 09/09/2018 16:23:32 09/10/2018 10:01:04 Acute bronchitis 28315388 J20.9 [facility] im per ma per vo. hydration and rest encouraged . fu c pcp within 2 weeks. report to ed if s/s worsen (i.e. CP, MIRANDA, SOB and the like) Acute sinusitis 59464742 J01.90 [id number] MD Santa Fishman [address] [address] 01/20/2019 10:43:12 01/21/2019 12:49:35 Morbid obesity 350410342 E66.01 - reports recent blood work done by OB-delivery rep, discussed signing medical release to gather records and redraw if not current- discussed importance of decreasing caloric intake, and increasing exercise- discussed that weight could be important factor in difficulti es with getting in addition to increasing risk of complicati ons if she does become - will continue to address at future visits Wheezing 51085082 R06.2 - patient reports wheezing worse at night, ddx includes JORGE as she is morbidly obese although she denies daytime sleepiness or HTN. No wheezing on exam. No history of COPD/Asthm a- discussed treating seasonal allergies with flonase and histamine kayla, patient would like to purchase OTC meds- will follow up in 1-2 months Mosquito bite 564803471 W57.XXXA - discussed use of OTC hydrocorti sone cream that she has at home for itching- no active signs of infection/ bleeding/d rainage, will continue to monitor- discussed alarm symptoms and return precaution s including fever, chills, spreading erythema around wound [id number] MD Santa Fishman 47 [address] [facility] [address] [place] [address] 05/26/2019 10:08:39 05/29/2019 09:36:03 Viral gastroenteritis 550169352 A08.4 Watery diarrhea x 3d, no alarm symptoms noted. Has not taken any meds for relief. Food/water intake has been normal with no loss of appetite. Pt is likely over the worst of the illness. -supportiv e care-antic ipatory guidance provide; return to clinic/ER if alarm sx arise Headache 89759747 R51 Headache noted upon awakening this morning. Pt experience s sporadic headaches at baseline. Did not take any medication bc was concerned that it was related to the diarrhea. Is staying well hydrated so not concerned for headache 2/2 to dehydratio n. -continue to stay hydrated-i buprofen 400mg PRN (q4h) if sx persist/re appear [id number] [facility] [address] [address] 07/19/2020 11:58:06 07/20/2020 07:02:17 Streptococcal sore throat 82740730 J02.0 Strep throat diagnosed in the [facility] [...] advised-Wo rk note sent through patient portal [id number] MD aSnta Fishman 47 3 [facility] [address] [place] [address] 11/12/2020 11:36:40 11/15/2020 11:50:43 Abscess of chest wall [id number] L02.213 Simple, moderate severity. Seen in ED on 11/06, started on Bactrim 10 days without I&D and worsening abscess formation, symptoms. No systemic symptoms. - I&D performed (see procedure) - Send culture - Dressing supplies provided with care instructio ns provided - Continue Bactrim for complete 10 days - ED/RTC precaution s for fever, worsening pain, redness [id number] Alberto La MD [place] [address] [address] 11/18/2020 13:19:05 11/19/2020 07:26:18 Abscess of chest wall [id number] L02.213 S/p I&D performed 11/12. Culture NGTD. Completed course of bactrim. Healing well with no signs of residual infection or abscess - Continue to monitor; applicatio n of Vaseline and bandaid to area - Contact dermatitis from tape applicatio n; triamcinol one to affected area; adverse drug effects discussed - ED/RTC precaution s for recurrence of symptoms [id number] Alberto La MD [place] [address] [address] 03/31/2021 16:04:53 04/01/2021 12:47:36 Body mass index 30+ - obesity 119577609 Z68.35 Shoulder pain 47422898 M 25.519 Acute, unresolved . Likely 2/2 to muscle imbalance in neck/shoul mariaa muscle group based on history and exam. Will treat conservati vely.- Encouraged ice/heat therapies- Neck and shoulder exercises provided- Short course of NSAIDs with respect to ulcer hx- Schedule for OMT- Recommende d massage- Recommende d supportive pillow- F/U if non-improv ing, consider PT Neck pain [id number] M54.2 Closed fra cture proximal phalanx, toe [id number] S92.911A Acute 2 weeks, protected with walking shoe and wrapping following ED visit with resolving pain. No signs of infection. Recommende d no more than 2 more weeks of walking shoe before transition to closed toe shoe. Resume activity as tolerated. [id number] ANDI LAKE DO [place] [address] [address] 04/22/2021 16:19:11 04/25/2021 12:52:00 Somatic dysfunction of thoracic region [id number] M99.02 Muscle energy technique performed on T2 with improved mobility of segment and patient pain. Counterstr ain technique performed tenderpoin t of L upper trapezius with subjective improvemen t of pain from 8/10 to no pain. Encouraged hydration and consider follow-up eval/treat ment in 2-3 weeks. Cervical s omatic dysfunction [id number] M99.01 Muscle energy technique performed on OA, AA and C4 with improved mobility of segments and patient pain. Encouraged hydration and consider follow-up eval/treat ment in 2-3 weeks. Somatic dy sfunction of rib 354544897 M99.08 Muscle energy technique performed on left ribs with improved movement with breathing. Encouraged hydration and consider follow-up eval/treat ment in 2-3 weeks. [id number] Alberto La MD [place] [address] 3 [facility] [address] [place] [address] 09/22/2021 12:19:20 09/23/2021 07:44:14 Acute sinusitis 70347953 J01.90 Acute, 4 days. Likely related to allergies, seasonal weather changes, viral infection. Less likely bacterial infection. Will treat conservati vely with nasal irrigation and regular nasal corticoste roid treatment to reduce inflammati on. Other supportive care measures discussed. F/U in a week if non-improv ing. [id number] Sekou Kaiserleary [place] [address] 3 [facility] [address] [place] [address] 11/18/2021 11:22:10 11/22/2021 13:31:33 Subacromial bursitis of left shoulder [id number] 617363 M75.52 TTP, pain with active and passive ROM. Likely aggravated and inflammate d from subscap tendinitis . Consented and performed subacromia l bursa steroid and lidocaine injection with relief of pain immediatel y. Subscapula ris tendinitis [id number] M67.819 Subacute, non-improv ing with conservati ve therapy. Discussed additional care with Tylenol/NS AIDs, exercises. Will send for formal PT evaluation and treatment. Cervical radiculopathy 87215158 M54.12 Positive Spurlings on left with concern for cervical DDD with spinal stenosis. With weakness, radicular symptoms, will order MRI. May likely need interventi onal pain management and/or NS depending on severity. [id number] Brittney Laughlin MD [place] [address] [address] 02/21/2022 17:04:12 02/24/2022 12:33:21 Cervical radiculopathy 44932589 M54.12 MRI C-spine w/o contrast (01/06/22) w/ [...] daily.- F/u in 3mo, sooner PRN. Obesity 071022286 E66.9 [id number] JOSE LEE MD [place] [address] [address] 05/26/2022 16:10:12 06/07/2022 15:54:36 Acute sinusitis 74942008 J01.90 - Increase to Flonase BID for acute infection. - Recommend nasal irrigation daily. Acute left otitis media 699232677 H66.92 New acute left otitis media; symptoms ongoing since this AM. Tmax 99F. Left TM erythemato us on examinatio n.- Sent Rx for Amoxicilli n 875mg PO q12h x 5d.- Tylenol/Mo anmol PRN for pain/disco mfort/feve r.- Work note: return to work on 05/29/22.- F/u in 3mo, sooner PRN. [id number] Bony Valverde MD [facility] [address] [address] 09/12/2022 16:30:42 09/24/2022 13:24:17 Allergic rhinitis 52009247 J30.9 Continue to have allergy symptoms: rhinorrhea , sinus headaches. Insufficie nt improvemen t w/ Claritin, Benadryl, Flonase.- Sent Rx for Montelukas t 10mg PO daily.- Consider Azelastine nasal spray.- F/u in 3mo, sooner PRN. Active or passive immunization 401127262 Z23 Obesity 392336703 E66.9 [id number] MD Santa Fishman [address] [place] [address] 12/04/2022 09:02:29 12/06/2022 09:23:33 Swelling of lower leg 710402616 R22.41 R>L. Present for 6 years. Only [...] of time- Follow up in one month [id number] MD Santa Fishman [address] [place] [address] 01/05/2023 09:43:06 01/12/2023 12:28:14 Migraine without aura 43671890 G43.009 Chronic headache every couple of days: [...] pt to use triptan early in attack. [id number] MD Santa Fishman [address] [place] [address] 03/05/2023 16:15:30 03/09/2023 22:01:46 Acute sinusitis 88498663 J01.90 Acute not resolved in 10 days. Allergic to amoxicilli n. will try doxycyclin e and nasal spray Allergic rhinitis 514186 04 J30.9 Chronic well controlled on flonase Screening for malignant neoplasm of colon 419520906 Z12.11 Asx. No family hx documented [id number] [facility] [address] [facility] [address] [place] [address] 10/09/2023 13:50:31 10/10/2023 13:09:04 Unsteady when standing 560869837 R26.81 vitamin deficienci es vs mass effect [...] flags today) Paresthesi a of upper limb 42093699 R20.2 MRI in 2021 showed Greatest degree [...] if worsening stenosis and consider neurosurg eval [id number] Harpreet Mariscal MD [facility] 47 3 [facility] [address] [place] [address] 10/22/2023 10:54:34 10/25/2023 11:40:54 Unsteady when standing 667983211 R26.81 MS vs migraines ( says has [...] flags today) Paresthesi a of upper limb 80609850 R20.2 MRI in 2021 showed Greatest degree [...] if worsening stenosis and consider neurosurg eval [id number] JOSE LEE MD [facility] 47 3 [facility] [address] [place] [address] 12/03/2023 09:05:02 12/04/2023 11:33:02 Paresthesia of upper limb 82385077 R20.2 Chronic. Worsening and increasing in frequency [...] ry referral, pending imaging. Consider EEG. Headache 67647737 R51.9 Chronic. Controlled . Hx of migraines. [...] management - Will continue to monitor Dizziness 224436468 R42 Chronic. Starting in 2010. Has been [...] 12/14/2023 - ED precaution s discussed Obesity 802593876 E66.8 - BMI 32.1 [id number] JACEY WORLEY DO [facility] 47 3 [facility] [address] [place] [address] 07/25/2024 16:35:16 08/14/2024 15:45:52 Hypothyroidism 03668187 E03.9 Chronic, stable.- cont levothyrox ine 100 mcg- check TSH w rfx t4 Exocrine p ancreatic insufficiency 76941005 K86.81 Chronic, stable.- cont zenpep TID- send endocrinol ogy referral History of fall 80227348 9 Z91.81 Acute, uncontroll ed. 07/16/24. Hit head. Worsening HAx, neck pain; mild improvemen t with tylenol, tramadol.- d/w pt c/o intracrani al bleed- rec going to ER for imaging, pt agreeable- pt taken to ER for evaluation [id number] Lisa Sánchez MD [facility] 47 3 [facility] [address] [place] [address] 08/07/2024 16:00:11 08/14/2024 16:26:17 Influenza caused by Influenza A virus 260829382 J09.X2 Acute, improving. Did not receive seasonal influenza vaccinatio n.influenz a A(+) 08/04 ; no fevers since 08/02. Tolerating PO.- past 48h window for tamiflu initiation - recommende d supportive (soup, fluids, rest, activity as tolerated, tylenol/ib uprofen prn) Health Concerns Section Related Observation LastModified by Organization Detai ls LastModified Time None Recorded Concern Status LastModified by Organization Details LastModified Time None Recorded Advance Directives Directive None Recorded Payers Encounter Date Sequence Insurance Name Policy Number Policy Martinez Covered Member ID Martinez Member ID Guarantor Name 10/09/2023 1 [facility] (MEDICAID HMO) [id number] Peterson Gil [id number] Orlando Gil 10/22/2023 1 [facility] (MEDICAID HMO) [id number] Peterson Gil [id number] Orlando Gil 12/03/2023 1 [facility] (MEDICAID HMO) [id number] Peterson Gil [id number] Orlando Gil 07/25/2024 1 [facility] (MEDICAID HMO) [id number] Peterson Gil [id number] Orlando Gil 08/07/2024 1 [facility] (MEDICAID HMO) [id number] 0003 Peterson Gil [id number] Orlando Gil Notes Date Note Type Note Provider Name and Address Organization Details Recorded Time 10/09/2023 text/html 48 year old with multiple [...] no new medications. Henry Mixon MD Attn: Accounting, [address] [facility], [place], [address], [facility] 10/10/2023 10:44:21 10/22/2023 text/html 48 year old [...] have LOC. no surgeries on knees. Harpreet Mraiscal MD Attn: Accounting, [address] [facility], [place], [address], [facility] 10/22/2023 12:39:02 12/03/2023 text/html 48 yo; PMHx of hypothyroidism and migraines; presenting for f/u on MRI. JOSE LEE MD Attn: Accounting, [address] [facility], [place], [address], [facility] 12/04/2023 09:42:41 07/25/2024 text/html 49 y/o Female- P MHx obesity, hypothyroidism, pancreatic insufficiency presents to Clinic to discuss medications and recent fall. Fell 07/16/24 when slipped on ice. Hit back of head. HAx, neck pain worsening since fall. Uses Tylenol, tramadol for sx control. Did not go to UC/ER at time of incident. Denies n/v and changes in vision, ambulation, limb movements. Hypothyroidism- stable, no concerns at this time.Pancreatic insufficiency- requests refill of Zenpep. unable to receive from pharmacy at specified dosing. 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 JACEY WORLEY DO Attn: Accounting, [address] [facility], [place], [address], [facility] 08/11/2024 07:35:55 08/07/2024 text/html 49 yo female w/ PMHx of obesity and hypothyroidism presenting to clinic for ER f/u of flu A. She started feeling ill on wednesday 08/02 and presented to ER on Friday 08/04 w/ symptoms of fever, headache, sore throat, minimally productive cough w/ yellow sputum, chest pain due to coughing, diarrhea, body aches, chills, and ear pain. She was prescribed prednisone and albuterol inhaler. Pt reports highest fever of 103.1 from Sunday.Pt did not get flu shot and denies sick contacts, traveling, sob, n/v, facial pressure, and constipation. Tolerating PO. Lisa Sánchez MD Attn: Accounting,[address] [facility] , [place], [address], [facility] 08/12/2024 15:06:30 OBGyn Episode No OBEpisode recorded.
--- OUTSIDE RECORDS SUMMARY | 2024-08-30 10:37 | XMS_ITS | Encounter Summary ---
Author Organization [facility] Address [address] [place] [address] Care Team Providers Care Loader Technician Name Role Phone Nasrin Walton Cherelle DO Unavailable Marcin Sarmiento MD Unavailable Orlando Curry MD Primary Care Provider Unav ailable Reason for Referral * Consultation (Routine) - Open Specialty Diagnoses / Procedures Referred By Contac t Referred To Contact Diagnoses S/P laparoscopic sleeve gastrectomy Felecia Valencia MD [address] [place] [address] Referral ID Status Reason Start Date Expiration Date V isits Requested Visits Authorized [id number] Open Specialty Services Required 08/29/2024 08/29/2025 4 4 [employer] Encounter Details Date Type Department Care Team (Latest Contact Info) Description 08/29/2024 3:00 PM SUPERVISOR [employer]SEM[employer] PACKING Clinical Support [facility] Weight Management Services [address] [place] [address] S/P laparoscopic sleeve gastrectomy Social History Tobacco Use Types Packs/Day Years [...] on file documented as of this encounter Last Filed Vital Signs Vital Sign Reading Time Taken Comments Blood Pressure - - Pulse - - Temperature - - Respiratory Rate - - Oxygen Saturation - - Inhaled Oxygen Concentration - - Weight 91.8 kg (202 lb 6.4 oz) 08/29/2024 2:00 P M [employer] Height - - Body Mass Index 37.48 09/14/2023 3:00 PM CDT documented in this encounter Functional Status Functional Status Response Date of [...] person have difficulty concentrating/remembering/making decisions? No 10/26/2021 documented as of this encounter Plan of Treatment Upcoming Encounters Date Type Department Care Team (Late st Contact Info) Description 09/04/2025 3:00 PM CDT Clinical Support [facility] Weight Management Services [address] [place] [address] 09/04/2025 3:30 PM CDT Office Visit [facility] Weight [facility] Services [address] [place] [address] Marely Montesinos, BUMPER AND PAINTER-CARE NAVIGATOR [address] [place] [address] Scheduled Referrals Name Type Priority Associated Diagnoses Orde r Schedule MEDICAL NUTRITION THERAPY REFERRAL Outpatient Referral Routine S/P laparoscopic sleeve gastrectomy 4 Occurrences starting 08/29/2024 until 08/29/2025 documented as of this encounter Visit Diagnoses Diagnosis S/P laparoscopic sleeve gastrectomy- Primary documented in this encounter Care Teams Loader Technician Relationship Specialty Start Date End Date Orlando Curry MD NEED INFORMATION UPDATED PCP - General 09/03/20 [place] [address] [facility] [address] [place] [address] [id number] Obstetrics and Gynecology 02/28/12 [place] [address] [facility] [address] [place] [address] [id number] Pulmonary Disease 02/28/12 documented as of this encounter
--- OUTSIDE RECORDS SUMMARY | 2024-08-30 10:37 | XMS_ITS | Encounter Summary ---
Author Organization [facility] Address [address] [place] [address] Care Team Providers Care Rib Knitter Name Role Phone Nasrin Walton DO Unavailable Marcin Sarmiento MD Unavailable Orlando Curry MD Primary Care Provider Unav ailable Reason for Visit * Reason Comments Bariatric Surgery Follow-up Encounter Details Date Type Department Care Team (Late st Contact Info) Description 08/29/2024 3:30 PM SHEET METAL WORKER SUPERVISOR Office Visit [facility] Weight Management Services [address] [place] [phone] Marely Montesinos, TILE DESIGNER-SENIOR LEAD JAVA DEVELOPER [address] [place] [address] S/P laparoscopic sleeve gastrectomy (Primary Dx); Hypothyroidism, unspecified type; Hyperparathyroidism, unspecified (HCC); History of vitamin D deficiency; History of prediabetes; H/O vitamin B deficiency; History of iron deficiency; Bariatric surgery status; Class 2 severe obesity due to excess calories with serious comorbidity and body mass index (BMI) of 37.0 to 37.9 in adult (HCC) Social History Tobacco Use Types Packs/Day Years [...] Comments Blood Pressure 128/76 08/29/2024 3:00 PM SHEET METAL WORKER SUPERVISOR Pulse 63 08/29/2024 3:00 PM SHEET METAL WORKER SUPERVISOR Temperature 37.2 C (98.9 F) 08/29/2024 3:00 PM SHEET METAL WORKER SUPERVISOR Respiratory Rate 18 08/29/2024 3:00 PM SHEET METAL WORKER SUPERVISOR Oxygen Saturation 100% 08/29/2024 3:00 PM SHEET METAL WORKER SUPERVISOR Inhaled Oxygen Concentration - - Weight 91.8 kg (202 lb 6.4 oz) 08/29/2024 3:00 P M SHEET METAL WORKER SUPERVISOR Height 156.5 cm (5' 1.61 ) 08/29/2024 3:00 PM CS T Body Mass Index 37.48 08/29/2024 3:00 PM SHEET METAL WORKER SUPERVISOR documented in this encounter Functional Status Functional [...] Description 09/04/2025 3:00 PM CDT Clinical Support [facility] Weight Management Services [address] [place] [address] 09/04/2025 3:30 PM CDT Office Visit [facility] Weight Management Services [address] [place] [address] Marely Montesinos, TILE DESIGNER-SENIOR LEAD JAVA DEVELOPER [address] [place] [address] Scheduled Orders Name Type Priority Associated Diagnoses Orde r Schedule CBC WITH DIFFERENTIAL Lab Routine S/P laparoscopic sleeve gastrectomy History of iron deficiency Bariatric surgery status Class 2 severe obesity due to excess calories with serious comorbidity and body mass index (BMI) of 37.0 to 37.9 in adult ([facility]) Expected: 11/02/2024 (Approximate), Expires: 08/29/2025 COMPREHENSIVE METABOLIC PANEL Lab Routine S/P laparoscopic sleeve gastrectomy Bariatric surgery status Class 2 severe obesity due to excess calories with serious comorbidity and body mass index (BMI) of 37.0 to 37.9 in adult ([facility]) Expected: 11/02/2024 (Approximate), Expires: 08/29/2025 FERRITIN Lab Routine S/P laparoscopic sleeve gastrectomy History of iron deficiency Bariatric surgery status Class 2 severe obesity due to excess calories with serious comorbidity and body mass index (BMI) of 37.0 to 37.9 in adult ([facility]) Expected: 11/02/2024 (Approximate), Expires: 08/29/2025 LIPID PROFILE Lab Routine S/P laparoscopic sleeve gastrectomy Bariatric surgery status Class 2 severe obesity due to excess calories with serious comorbidity and body mass index (BMI) of 37.0 to 37.9 in adult ([facility]) Expected: 11/02/2024 (Approximate), Expires: 08/29/2025 MAGNESIUM BLOOD Lab Routine S/P laparoscopic sleeve gastrectomy Bariatric surgery status Class 2 severe obesity due to excess calories with serious comorbidity and body mass index (BMI) of 37.0 to 37.9 in adult ([facility]) Expected: 11/02/2024 (Approximate), Expires: 08/29/2025 VITAMIN D 25-HYDROXY Lab Routine S/P laparoscopic sleeve gastrectomy Hyperparathyroidism, unspecified ([facility]) History of vitamin D deficiency Bariatric surgery status Class 2 severe obesity due to excess calories with serious comorbidity and body mass index (BMI) of 37.0 to 37.9 in adult ([facility]) Expected: 11/02/2024 (Approximate), Expires: 08/29/2025 VITAMIN B12 FOLATE PANEL Lab Routine S/P laparoscopic sleeve gastrectomy Bariatric surgery status Class 2 severe obesity due to excess calories with serious comorbidity and body mass index (BMI) of 37.0 to 37.9 in adult ([facility]) Expected: 11/02/2024 (Approximate), Expires: 08/29/2025 VITAMIN B1 Lab Routine S/P laparoscopic sleeve gastrectomy Bariatric surgery status Class 2 severe obesity due to excess calories with serious comorbidity and body mass index (BMI) of 37.0 to 37.9 in adult ([facility]) Expected: 11/02/2024 (Approximate), Expires: 08/29/2025 PTH INTACT+CALCIUM Lab Routine S/P laparoscopic sleeve gastrectomy Hyperparathyroidism, unspecified ([facility]) History of vitamin D deficiency Bariatric surgery status Class 2 severe obesity due to excess calories with serious comorbidity and body mass index (BMI) of 37.0 to 37.9 in adult ([facility]) Expected: 11/02/2024 (Approximate), Expires: 08/29/2025 PHOSPHORUS BLOOD Lab Routine S/P laparoscopic sleeve gastrectomy Bariatric surgery status Class 2 severe obesity due to excess calories with serious comorbidity and body mass index (BMI) of 37.0 to 37.9 in adult ([facility]) Expected: 11/02/2024 (Approximate), Expires: 08/29/2025 IRON + TRANSFERRIN PANEL Lab Routine S/P laparoscopic sleeve gastrectomy History of iron deficiency Bariatric surgery status Class 2 severe obesity due to excess calories with serious comorbidity and body mass index (BMI) of 37.0 to 37.9 in adult ([facility]) Expected: 11/02/2024 (Approximate), Expires: 08/29/2025 TSH Lab Routine S/P laparoscopic sleeve gastrectomy Hypothyroidism, unspecified type Bariatric surgery status Class 2 severe obesity due to excess calories with serious comorbidity and body mass index (BMI) of 37.0 to 37.9 in adult ([facility]) 1 Occurrences starting 08/29/2024 until 08/24/2025 HEMOGLOBIN A1C Lab Routine S/P laparoscopic sleeve gastrectomy H/O vitamin B deficiency Bariatric surgery status Class 2 severe obesity due to excess calories with serious comorbidity and body mass index (BMI) of 37.0 to 37.9 in adult ([facility]) 1 Occurrences starting 08/29/2024 until 08/24/2025 documented as of this encounter Visit Diagnoses Diagnosis S/P laparoscopic sleeve gastrectomy- Primary Hypothyroidism, unspecified type Hyperparathyroidism, unspecified ([facility]) Hyperparathyroidism, unspecified History of vitamin D deficiency Personal history of nutritional deficiency History of prediabetes H/O vitamin B deficiency Personal history of nutritional deficiency History of iron deficiency Personal history of diseases of blood and blood-forming organs Bariatric surgery status Class 2 severe obesity due to excess calories with serious comorbidity and body mass index (BMI) of 37.0 to 37.9 in adult (HCC) documented in this encounter Care Teams Rib Knitter Relationship Specialty Start Date End Date Orlando Curry MD NEED INFORMATION UPDATED PCP - General 09/03/20 [place] [address] [id number] Obstetrics and Gynecology 02/28/12 [place] [address] [facility] [address] [place] [phone] Pulmonary Disease 02/28/12 documented as of this encounter
--- OUTSIDE RECORDS SUMMARY | 2024-08-30 10:37 | XMS_ITS | Patient Health Summary ---
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 03/16/11 0920 metformin ER 24hr (GLUCOPHAGE XR) tablet 500 mg 500 mg Oral BID Cooper Gordon MD 500 mg at 03/16/11 09 ondansetron (ZOFRAN) [...] 0 Years of Education: N/A 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 Angela Weiner, [...] (CORTROSYN) injection 0.25 mg 0.25 mg Intravenous OnceDonte MD Gilbert 0.25 mg at 03/15/112117 niogiintkr-zeyllhbcnhtgi-ytnfxpmv (FIORICET) tablet 1 Tab 1 Tab Qwmby3n PRN Segundo Hunt MD 1 Tab at 03/16/11 09 acetaminophen (TYLENOL) tablet 650 mg 650 mg Oral q4h PRN Cooper Gordon MD famotidine (PEPCID) tablet 20 mg 20 mg Oral BID Cooper Gordon MD 20 mgat 03/16/11 09 ibuprofen (MOTRIN) tablet 800 mg 800 mg Oral TID PRN Cooper Gordon MD800 mg at 03/15/112251 levofloxacin (LEVAQUIN) tablet 500 mg 500 mg Oral QDAY Cooper Gordon MD500 mg at 03/16/11 09 metformin ER 24hr (GLUCOPHAGE XR) tablet 500 mg 500 mg Oral BID MD Milena 500 mg at 03/16/11 0920 ondansetron (ZOFRAN) injection 4 mg 4 mg [...] 0 Years of Education: N/A 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 CULTURE No growth CEREBROSPINAL FLUID SPECIMEN / Unknown 03/16/2011 11:38 AM CDT 03/16/2011 11:38 AM CDT Narrative Resulting Agency Comment Performed By [facility];[address] [facility];[place] [address] Segundo Hunt MD LAB - MICROBIOLOGY O RDERABLES Performing Organization Address City/State/[facility] Co de Phone Number [facility] [address] [place] [phone] * FL FLUORO LUMBAR PUNCT (03/16/2011 11:10 [...] floor in good condition. Procedure Note Jevon Gonzalez MD - 03/17/2011 INDICATION: Headache. PROCEDURE: Fluoroscopic-guided [...] Nile IgM Ab CSF 0.08 <=0.89 IV [facility] Lincoln Encephalitis Antibody IgM CSF < 1/1 <1/1 [facility] [place] Encephalitis Antibody IgM < 1/1 <1/1 Ratio [facility] Eastern Equine Encephalitis Antibody IgM CSF < 1/1 <1/1 Ratio [facility] West Equine IgM CSF < 1/1 <1/1 Ratio [facility] Comment Ref Lab [facility] Comment: Comments and Normal Ranges for [...] members of the Flaviviridae family, such as Lincoln encephalitis virus, show extensive cross-reactivity with West Nile virus, serologic testing specific for these species should be considered. The detection of antibodies to West Nile virus in cerebrospinal fluid may indicate central nervous system infection. However, consideration must be given to possible contamination by blood or transfer of serum antibodies across the blood-brain barrier. The business data analyst has not determined the efficacy of this test when performed on CSF specimens. The performance characteristics of this test were determined by [employer] [facility]. Comments and Normal Ranges for Component SLE [...] these species should also be performed. The business data analyst has not determined the efficacy of this test when performed on CSF specimens. The performance characteristics of this test were determined by [employer] [facility]. Comments and Normal Ranges for Component *[place] [...] to other viruses within this group. The business data analyst has not determined the efficacy of this test when performed on CSF specimens. The performance characteristics of this test were determined by [facility]. Comments and Normal Ranges for Component *East [...] these species should also be performed. The business data analyst has not determined the efficacy of this test when performed on CSF specimens. The performance characteristics of this test were determined by [employer] [facility]. Comments and Normal Ranges for Component *West [...] these species should also be performed. The business data analyst has not determined the efficacy of this test when performed on CSF specimens. The performance characteristics of this test were determined by [facility]. CEREBROSPINAL FLUID SPECIMEN / Unknown 03/16/2011 11:00 AM CDT 03/16/2011 8:52 PM CDT Narrative [facility] - 03/20/2011 9:53 AM CDT ADD ON Resulting Agency Comment Performed By [address] [address] Segundo Hunt MD LAB - BODY FLUID ORD ERABLES [facility] [address] [place] [address] * WEST NILE ANTIBODY IGM CSF (03/16/2011 11:00 AM CDT) Comment Ref Lab [facility] Comment: Comments and Normal Ranges for [...] members of the Flaviviridae family, such as Lincoln encephalitis virus, show extensive cross-reactivity with West Nile virus, serologic testing specific for these species should be considered. The detection of antibodies to West Nile virus in cerebrospinal fluid may indicate central nervous system infection. However, consideration must be given to possible contamination by blood or transfer of serum antibodies across the blood-brain barrier. The business data analyst has not determined the efficacy of this test when performed on CSF specimens. The performance characteristics of this test were determined by [facility]. West Nile IgM Ab CSF 0.08 <=0.89 IV [facility] CEREBROSPINAL FLUID SPECIMEN / Unknown 03/16/2011 11:00 AM CDT 03/16/2011 8:52 PM CDT Narrative [facility] - 03/19/2011 2:36 PM CDT ADD ON Resulting Agency Comment Performed By [employer] [address] Segundo Hunt MD LAB - BODY FLUID ORD ERABLES [facility] [address] [place] [address] * ANGIOTENSIN CONVERT ENZYME CSF (03/16/2011 11:00 AM CDT) Pathologist [facility] Angiotensin-Co nverting Enzyme CSF 1.2 0.0 - 2.5 [facility] CEREBROSPINAL FLUID SPECIMEN / Unknown 03/16/2011 11:00 AM CDT 03/16/2011 9:35 PM CDT Narrative Resulting Agency Comment Performed By [place] [address] Segundo Hunt MD LAB - BODY FLUID ORD ERABLES Performing Organization Address [facility] Co de Phone Number [facility] [address] [place] [address] * ENTEROVIRUS PCR (03/16/2011 11:00 AM CDT) [facility] Enterovirus by PCR NO Enterovirus RNA detected by polymerase chain reaction (PCR) Not Detected [facility] Additional Comment D [facility] Comment: Comments and Normal Ranges for Component The target for this PCR is a conserved region of the non-coding region of the enterovirus genome. This test was developed and it's performance characteristics determined by [facility]. It has not been cleared or approved by the U.S. Food and Drug Administration. Pursuant to the requirements of CLIA, this laboratory has established and verified the accuracy and precision of this test. Additional information about this type of test is available upon request. CEREBROSPINAL FLUID SPECIMEN / Unknown 03/16/2011 11:00 AM CDT 03/16/2011 8:52 PM CDT Narrative [facility] - 03/17/2011 2:35 PM CDT ADD ON Resulting Agency Comment Performed By [facility] - [facility] Segundo Hunt MD LAB - SEROLOGY ORDER PHUONG Performing Organization Address [facility] de Phone Number [facility] [address] [place] [address] * HERPES SIMPLEX PCR (03/16/2011 11:00 AM CDT) Pathologist [facility] Herpes Simplex Virus PCR NO Herpes Simplex Virus DNA detected by polymerase chain reaction. [facility] Additional Comment D [facility] Comment: Comments and Normal Ranges for Component The target for this PCR is a conserved region of the HSV-1 and HSV-2 DNA glycoprotein B gene. The detection limit is 10 copies of HSV DNA per reaction. This test was developed and its performance characteristics determined by the Virology Laboratory at [facility]. It has not been cleared or approved [...] AM CDT 03/16/2011 9:35 PM CDT Narrative [facility] - 03/17/2011 2:35 PM CDT Please do all the studies off CSF i* Resulting Agency Comment Performed By [facility] - [facility] Giovanni Elena MD LAB - MICROBIOLOGY ORDERABLES Performing Organization Address [facility] Co de Phone Number [facility] [address] [place] [address] * GRAM STAIN SMEAR (03/16/2011 11:00 AM CDT) Gram Stain Moderate Lymphocytes, No Organisms Seen [facility] CEREBROSPINAL FLUID SPECIMEN / Unknown 03/16/2011 11:00 AM CDT 03/16/2011 11:28 AM CDT Segundo Hunt MD LAB - MICROBIOLOGY O RDERABLES Performing Organization Address [facility] Co de Phone Number [facility] [address] [place] [address] * CELL COUNT W DIFFERENTIAL CSF (03/16/2011 11:00 AM CDT) Color CSF colorless [facility] Character CSF clear [facility] RBC CSF 16 /cmm [facility] WBC CSF 40 /cmm [facility] Lymphocytes % CSF 95 % [facility] Monocytes % CSF 5 % [facility] Tube CSF 3 [facility] CEREBROSPINAL FLUID SPECIMEN / Unknown 03/16/2011 11:00 AM CDT 03/16/2011 11:28 AM CDT Segundo Hunt MD LAB - BODY FLUID ORD ERABLES Performing Organization Address [facility] Co de Phone Number [facility] [id number] [place] [address] * PROTEIN CSF (03/16/2011 11:00 AM CDT) Pathologist [facility] Protein CSF 38.0 15.0 - 45.0 mg/dl [facility] CEREBROSPINAL FLUID SPECIMEN / Unknown 03/16/2011 11:00 AM CDT 03/16/2011 11:28 AM CDT Segundo Hunt MD LAB - BODY FLUID ORD ERABLES Performing Organization Address [facility] de Phone Number [facility] [address] [place] [address] * GLUCOSE CSF (03/16/2011 11:00 AM CDT) Pathologist [facility] Glucose CSF 53 40 - 70 mg/dl [facility] CEREBROSPINAL FLUID SPECIMEN / Unknown 03/16/2011 11:00 AM CDT 03/16/2011 11:28 AM CDT Segundo Hunt MD LAB - BODY FLUID ORD ERABLES Performing Organization Address [facility] de Phone Number [facility] [address] [place] [address] * CBC W/O DIFFERENTIAL (03/16/2011 2:55 AM CDT) WBC 7.7 4.5 - 11.0 1000/mm3 [facility] RBC 4.57 4.2 - 5.4 10X6 [facility] Hemoglobin 13.1 12.0 - 16.0 gm/dl [facility] Hematocrit 39.0 36.0 - 48.0 % [facility] MCV 85.3 80.0 - 99.0 fl [facility] MCH 28.7 25.0 - 31.0 pg [facility] MCHC 33.6 32.0 - 36.0 gm/dl [facility] RDW 13.0 11.5 - 14.5 % [facility] Platelet Count 202 130.0 - 400.0 1000/mm3 [facility] BLOOD SPECIMEN / Unknown 03/16/2011 2:55 AM CDT 03/16/2011 4:35 AM CDT Segundo Hunt MD LAB - HEMATOLOGY ORD ERABLES Performing Organization Address [facility] Co de Phone Number [facility] [address] [place] [address] * T4 FREE (03/16/2011 2:55 AM CDT) T4 Free 1.02 0.65 - 1.34 ng/dl [facility] BLOOD SPECIMEN / Unknown 03/16/2011 2:55 AM CDT 03/16/2011 4:35 AM CDT Segundo Hunt MD LAB - CHEMISTRY ANGIE DÍAZ Performing Organization Address [facility] de Phone Number [facility] [address] [place] [address] * (ABNORMAL) CORTISOL BLOOD (03/15/2011 10:18 PM CDT) Only the most recent of3 resultswithin the time period is included. Cortisol 31.95(H) 3.09 - 22.40 ug/dl [facility] BLOOD SPECIMEN / Unknown 03/15/2011 10:18 PM CDT 03/15/2011 10:33 PM CDT Narrative [facility] - 03/16/2011 1:24 PM CDT 1 hour after ACTH stiumulation Resulting Agency Comment Performed By [facility] - [facility] [address] [place] [address] Segundo Hunt MD LAB - CHEMISTRY ANGIE DÍAZ Performing Organization Address [facility] Co de Phone Number [facility] [address] [place] [address] * MRI BRAIN NON CONTRAST (03/15/2011 6:02 [...] no evidence of venous thrombosis. Procedure Note Nhiarika Payne MD - 03/15/2011 INDICATION: Syncope, head [...] * TROPONIN I (03/14/2011 6:35 PM CDT) Troponin I < 0.015 SEE BELOW ng/mL [facility] Comment: Normal <0.10 Aragon Zone 0.10-0.99 Positive >=1.00 SERUM OR PLASMA SPECIMEN / Unknown 03/14/2011 6:35 PM CDT 03/14/2011 6:56 PM CDT Cooper Gordon MD LAB - CHEMISTRY O RDERABLES [facility] [address] [place] [address] * PT PTT PANEL (03/14/2011 6:35 PM CDT) PT 10.1 9.4 - 11.2 seconds [facility] INR 1.0 SEE BELOW [facility] Comment: 0.9-1.1 Normal 2.0-3.0 Conventional 2.5-3.5 Intensive PTT 24.7 24.0 - 32.0 seconds [facility] BLOOD SPECIMEN / Unknown 03/14/2011 6:35 PM CDT 03/14/2011 6:45 PM CDT Narrative [facility] - 03/14/2011 7:07 PM CDT Obtain if altered mental status, in* Cooper Gordon MD LAB - COAGULATION ORDERABLES Performing Organization Address City/[facility]/ZIP Co de Phone Number [facility] [address] [place] [address] * TESTOSTERONE TOTAL (10/29/2010 8:12 AM CDT) Testosterone 16 8 - 48 ng/dL [facility] ACCOUNT BILL BLOOD SPECIMEN / Unknown 10/29/2010 8:12 AM CDT 10/29/2010 2:23 PM CDT Narrative Resulting Agency Comment [facility] [address] [facility] [phone] Teodoro Huff MD LAB - CHEMISTRY ANGIE DÍAZ Performing Organization Address [facility] Co de Phone Number [facility] ACCOUNT BILL * (ABNORMAL) PROLACTIN (10/29/2010 8:12 AM CDT) Only the most recent of2 resultswithin the time period is included. Prolactin 4.2(L) 4.8 - 23.3 ng/mL [facility] ACCOUNT BILL BLOOD SPECIMEN / Unknown 10/29/2010 8:12 AM CDT 10/29/2010 2:23 PM CDT Narrative Resulting Agency Comment [facility] [address] [facility] [phone] Teodoro Huff MD LAB - CHEMISTRY ANGIE DÍAZ Performing Organization Address [facility] Co de Phone Number [facility] ACCOUNT BILL * LH (10/29/2010 8:12 AM CDT) LH 10.7 mIU/mL [facility] ACCOUNT BILL Comment: Follicular phase 2.4 - 12.6 Ovulation phase 14.0 - 95.6 Luteal phase 1.0 - 11.4 Postmenopausal 7.7 - 58.5 BLOOD SPECIMEN / Unknown 10/29/2010 8:12 AM CDT 10/29/2010 2:23 PM CDT Narrative Resulting Agency Comment [facility] [address] [facility] [phone] Teodoro Huff MD LAB - CHEMISTRY ANGIE DÍAZ Performing Organization Address [facility] Co de Phone Number [facility] ACCOUNT BILL * HYDROXYPROGESTERONE 17- (10/29/2010 8:12 AM CDT) 17-Hydroxyproge sterone LCMS 37 ng/dL [facility] ACCOUNT BILL Comment: Adult Female Follicular 15 - 70 Luteal 35 - 290 BLOOD SPECIMEN / Unknown 10/29/2010 8:12 AM CDT 10/29/2010 2:23 PM CDT Narrative Resulting Agency Comment [facility] [address] [id number] Teodoro Huff MD LAB - CHEMISTRY ANGIE DÍAZ Performing Organization Address [facility] de Phone Number [facility] ACCOUNT BILL * FSH (10/29/2010 8:12 AM CDT) FSH 4.8 mIU/mL [facility] ACCOUNT BILL Comment: Follicular phase 3.5 - 12.5 Ovulation phase 4.7 - 21.5 Luteal phase 1.7 - 7.7 Postmenopausal 25.8 - 134.8 BLOOD SPECIMEN / Unknown 10/29/2010 8:12 AM CDT 10/29/2010 2:23 PM CDT Narrative Resulting Agency Comment [facility] [address] [phone] Teodoro Huff MD LAB - CHEMISTRY ANGIE DÍAZ Performing Organization Address [facility] de Phone Number [facility] ACCOUNT BILL * (ABNORMAL) CORTISOL BLOOD AM (10/29/2010 8:12 AM CDT) Cortisol AM 0.5(L) 6.2 - 19.4 ug/dL [facility] ACCOUNT BILL BLOOD SPECIMEN / Unknown 10/29/2010 8:12 AM CDT 10/29/2010 2:23 PM CDT Narrative Resulting Agency Comment [facility] [address] [phone] Teodoro Huff MD LAB - CHEMISTRY ANGIE DÍAZ Performing Organization Address [facility]/State/ZIP Co de Phone Number [facility] ACCOUNT BILL * PAP SMEAR IG HPV HR (PO REF LAB) (07/29/2010 2:17 PM SPOOL WINDER) Diagnosis [facility] INSURANCE BILL Comment:NEGATIVE FOR INTRAEP ITHELIAL LESION AND MALIGNANCY. Specimen Adequacy [facility] INSURANCE BILL Comment: Satisfactory for evaluation. Endocervical and/or squamous metaplastic cells (endocervical component) are present. Clinician Provided ICD9 [facility] INSURANCE BILL Comment: 112.3 ; Candidiasis of skin and nails V72.31 ; Routine gynecological examination V73.81 ; Special screening examination, human papillomavirus [HPV] Performed by [facility] INSURANCE BILL Comment:Nadine Manuel ytotechnologist (ASCP) Comment . [facility] INSURANCE BILL Note [facility] INSURANCE BILL Comment: The Pap smear is a screening test designed to aid in the detection of premalignant and malignant conditions of the uterine cervix. It is not a diagnostic procedure and should not be used as the sole means of detecting cervical cancer. Both false-positive and false-negative reports do occur. . [facility] CPT Code Automation [facility] INSURANCE BILL Comment: This liquid based ThinPrep(R) pap test was screened with the use of an image guided system. Human papillomavirus High Risk Negative Negative [facility] INSURANCE BILL Comment: This high-risk HPV test detects thirteen high-risk types (16/18/31/33/35/39/45/51/52/56/58/59/68) without differentiation. . MICROSCOPIC CYTOLOGIC EXAMINATION OF SMEAR OF SPECIMEN FROM FEMALE GENITAL TRACT PREPARED USING PAPANICOLAOU TECHNIQUE / Unknown 07/29/2010 2:17 PM SPOOL WINDER 07/29/2010 9:13 PM SPOOL WINDER Narrative [facility] INSURANCE BILL - 08/03/2010 2:17 PM SPOOL WINDER No. of containers..01 CYTYC Thin Prep Vial Resulting Agency Comment [address] [place] [phone] Max Walton DO LAB - PATHOLOGY/CYTO LOGY ORDERABLES [facility] INSURANCE BILL * PAP SMEAR IG RFLX HPV ASCU (PO REF LAB) (04/15/2009 2:42 PM CDT) Diagnosis [facility] INSURANCE BILL Comment:NEGATIVE FOR INTRAEP ITHELIAL LESION AND MALIGNANCY. Specimen Adequacy [facility] INSURANCE BILL Comment: Satisfactory for evaluation. Endocervical and/or squamous metaplastic cells (endocervical component) are present. Clinician Provided ICD9 [facility] INSURANCE BILL Comment:V72.31 ; Routine curriculum assistant ecological examination Performed by [facility] INSURANCE BILL Comment:Olga Daniels Cytot echnologist (ASCP) Comment . [facility] INSURANCE BILL Note [facility] INSURANCE BILL Comment: The Pap smear is a screening test designed to aid in the detection of premalignant and malignant conditions of the uterine cervix. It is not a diagnostic procedure and should not be used as the sole means of detecting cervical cancer. Both false-positive and false-negative reports do occur. . [facility] CPT Code Automation [facility] Comment: This liquid based ThinPrep(R) pap test was screened with the use of an image guided system. Reflex [facility] Comment: The HPV DNA reflex criteria were not met with this specimen result therefore, no HPV testing was performed. . MICROSCOPIC CYTOLOGIC EXAMINATION OF SMEAR OF SPECIMEN FROM FEMALE GENITAL TRACT PREPARED USING PAPANICOLAOU TECHNIQUE / Unknown 04/15/2009 2:42 PM CDT 04/16/2009 12:54 AM CDT [facility]ative [facility] BILL - 04/20/2009 4:19 PM CDT LMP / Prev Treat...QRP=[id number];None No. of containers..01 CYTYC Thin Prep Vial Resulting Agency Comment [address] [phone] Max Walton DO LAB - PATHOLOGY/CYTO LOGY ORDERABLES [facility] INSURANCE BILL * US PELVIS WITH TRANSVAG NON OB (10/13/2008 3:30 PM CDT) Anatomical Region Laterality Modality Pelvis Other 10/13/2008 3:30 PM CDT Narrative 10/14/2008 6:12 PM CDT [facility] Patient- Peterson Seymour- 1975 Sex- Female Phone- [facility] Group Exam Date- 10/13/2008 Referring Physician- Max [...] Signed on 10/14/08 02-34 PM By Cliff Goznalez M.D. Copied from [facility] Read By- CLIFF GONZALEZ M.D. Released By- CLIFF GONZALEZ M.D. Released Date Time- 10/14/08 1812 - MAX WALTON ATT- MAX WALTON REF- CON- PCP- MAX WALTON SCP- Procedure Note Cliff Gonzalez - 10/14/2008 [facility] Patient- Gil Peterson Iraj- 1975 Sex- Female Phone- [facility] Group Exam Date- 10/13/2008 Referring Physician- Max [...] PM By Cliff Gonzalez M.D. Copied from [facility] Read By- CLIFF GONZALEZ M.D. Released By- CLIFF GONZALEZ M.D. Released Date Time- 10/14/081811 - MAX WALTON- MAX WALTON REF- CON- PCP- MAX WALTON SCP- Max Walton DO ORDERABLES * HCG BETA BLOOD QUANTITATIVE (10/05/2008 1:22 PM CDT) hCG Value <2 mIU/mL [facility] INSURANCE BILL Comment: Female (Non-) <10 . Female () 1 D - 1 wk 5 - 50 1 - 2 wk 50 - 500 2 - 3 wk 100 - 5000 3 - 4 wk 500 - 98134 4 - 5 wk 1000 - 77201 5 - 6 wk 32852 -159635 6 - 8 wk 37782 -361818 2 - 3 mo [id number] -[id number] [facility]/ACS methodology 10/05/2008 1:22 PM CDT 10/05/2008 9:16 PM CDT Narrative Resulting Agency [facility] [phone] Max Walton DO LAB - CHEMISTRY ANGIE DÍAZ [facility] Organization Address City/State/ZIP Co de Phone Number [facility] INSURANCE BILL Care Teams Spa Manager Relationship Specialty Start Date End Date Orlando Curry MD NEED INFORMATION UPDATED PCP - General 09/03/20 [place] [address] [place], [place] [id number] Obstetrics and Gynecology 02/28/12 [place] [id number] [place] [address] Pulmonary Disease 02/28/12
[2024-08-30 11:10] LABS: Basophils Percent Auto 0.5 % (0.2-1.2); Eosinophils Absolute Auto 0.1 K/mm3 (0-0.3); Eosinophils Percent Auto 2.4 % (0-4.4); Hemoglobin 12.5 g/dL (12.0-15.0); Immature Granulocyte Absolute 0.01 K/mm3 (0.00-0.031); Immature Granulocyte Percent A 0.2 % (0-0.5); Lymphocytes Absolute Auto 1.48 K/mm3 (0.9-3.2); Lymphocytes Percent Auto 35.7 % (18.3-44.2); Mean Corpuscular HGB Conc 31.3 g/dl (32-36); Mean Corpuscular Hemoglobin 26.3 pg (26-34); Mean Corpuscular Volume 84.2 fl (80-100); Monocytes Absolute Auto 0.5 K/mm3 (0.1-0.6); Neutrophils Percent Auto 48.2 % (45.5-73.1); Platelet Count Result 171 k/mm3 (150-375); Red Blood Count 4.75 M/mm3 (4.2-5.4); Red Cell Distribution Width 15.1 % (11.5-14.5); White Blood Count 4.2 K/mm3 (4.5-10.0)
[2024-08-30 11:28] LABS: Alanine Aminotransferase 23 U/L (6-35); Albumin Level 3.6 g/dL (3.5-5.1); Alkaline Phosphatase 56 U/L (38-126); Anion Gap 5 mmol/L (4-12); Aspartate Amino Transferase 25 U/L (14-36); Bilirubin,Total 0.4 mg/dL (0.2-1.3); Blood Urea Nitrogen 14 mg/dL (7-17); Calcium 8.4 mg/dL (8.4-10.2); Carbon Dioxide 29 mmol/L (22-30); Chloride 108 mmol/L (98-107); Cholesterol 112 mg/dL (0-200); Estimated Glomerular Filt Rate > 60; Glucose 92 mg/dL (65-110); HDL Direct 44 mg/dL; Magnesium 2.2 mg/dL (1.6-2.3); Phosphorus 3.2 mg/dL (2.5-4.5); Potassium 4.3 mmol/L (3.4-5.0); Sodium 142 mmol/L (137-145); Triglycerides 69 mg/dL (<150)
[2024-08-30 11:30] LABS: Hemoglobin A1C 5.3 % (<5.7)
[2024-08-30 11:40] LABS: LDL Cholesterol Direct 48 mg/dL
[2024-08-30 11:46] LABS: Parathyroid Intact 58.8 pg/mL (14.5-75.2)
[2024-08-30 11:51] LABS: Vitamin D 25 Hydroxy 61.3 ng/mL
[2024-08-30 12:45] LABS: Folic Acid > 20.0 ng/mL (2.76->20)
[2024-09-03 10:08] LABS: Vitamin B1 36 nmol/L (8-30)
== END 2024-08-30 10:31 | disposition home or self-care (01) ==
PROVIDERS: PCP Family Medicine
DX: E66.812 Obesity, class 2 (principal); E66.01 Morbid (severe) obesity due to excess calories; Z68.37 Body mass index [BMI] 37.0-37.9, adult; Z98.84 Bariatric surgery status; Z86.39 Personal history of other endocrine, nutritional and metabolic disease
CPT/HCPCS: 36415; 80053; 80061; 82306; 82607; 82728; 82746; 83036; 83735; 83970; 84100; 84425; 85025